=== PATIENT | male | born 1980 | race Caucasian/White ===

== ENCOUNTER 2018-07-27 19:02 | Inpatient (IN) | payer SELFPAY ==
[~2018-07-27] VITALS: Ht 190.5 cm; Wt 108.9 kg
[~2018-07-27 19:02] MED LIST: CLIN300C8 PO; HYDR-3164 PO; METO25TA4 PO
[2018-07-27] MEDS ORDERED: LABETALOL 20 MG/4 ML DISP.SYRIN. IVP ONE (19:30)
[2018-07-27] MEDS ORDERED: ASPIRIN CHEWABLE 81 MG TABLET. PO ONE (19:30)
[2018-07-27] MEDS ORDERED: FUROSEMIDE 20 MG/2 ML VIAL. IVP ONE (19:30)
--- NOTE | 2018-07-27 19:34 | PHYS DOC ---
Past Medical History Past Medical History: Hypertension, Other Additional Past Medical Histor: protein S deficiency Past Surgical History: Other Additional Past Surgical Histo: brisket removed from throat, L foot Alcohol Use: None Drug Use: None Adult General Chief Complaint Chief Complaint: ABDOMINAL PAIN HPI HPI Patient is a 38 year old male was presenting with chief complaint multiple symptoms. He's had leg swelling for the last 2 days increasing his had several weeks of dyspnea on exertion he says he feels very lightheaded as though he is going to pass out when he walks in addition he has epigastric discomfort he says that there is a heartburn component like indigestion after eating but also gets worse when he walks. Patient's history of high blood pressure but he is been off his metoprolol because he's out of insurance he has not seen his doctor for several months he does use methamphetamine occasionally he does smoke tobacco he denies alcohol. Denies any known cardiac history. he also says food gets stuck in his esophagus sometimes occasional meth use. Review of Systems Review of Systems Constitutional: Denies fever or chills [] Eyes: Denies change in visual acuity, redness, or eye pain [] HENT: Denies nasal congestion or sore throat [] Respiratory: Denies cough GI: : Denies dysuria or hematuria [] Musculoskeletal: Denies back pain or joint pain [] Integument: Denies rash or skin lesions [] All other systems were reviewed and found to be within normal limits, except as documented in this note. Current Medications Current Medications Current Medications Medications (Trade) Dose Ordered Sig/Lena Start Time Stop Time Status Last Admin Dose Admin Aspirin (Children'S Aspirin) 324 mg 1X ONCE 07/27/18 19:30 07/27/18 19:34 DC 07/27/18 20:00 324 MG Famotidine (Pepcid) 20 mg 1X ONCE 07/27/18 21:15 07/27/18 21:16 DC Furosemide (Lasix) 20 mg 1X ONCE 07/27/18 19:30 07/27/18 19:34 DC 07/27/18 19:59 20 MG Labetalol HCl (Normodyne Iv Push) 20 mg PRN Q2HRS PRN 07/27/18 21:15 Nitroglycerin (Nitro-Bid Oint) 2 inch 1X ONCE 07/27/18 21:15 07/27/18 21:16 DC Nitroglycerin (Nitrostat) 0.4 mg PRN Q5MIN PRN 07/27/18 21:15 07/28/18 21:14 Allergies Allergies Allergies Coded Allergies Type Severity Reaction Last Updated Verified No Known Drug Allergies 03/28/16 No Physical Exam Physical Exam M Constitutional: Well developed, well nourished, mild distress, non-toxic appearance. [] HENT: Normocephalic, atraumatic, bilateral external ears normal, oropharynx moist, no oral exudates, nose normal. [] Eyes: PERRLA, EOMI, conjunctiva normal, no discharge. [] Neck: Normal range of motion, no tenderness, supple, no stridor. [] Cardiovascular:Heart rate regular rhythm, 3-6 murmur noted ungs & Thorax: Decreased breath sounds bilateral lung bases Abdomen: Bowel sounds normal, soft, mild epigastric tenderness, no masses, no pulsatile masses. [] Skin: Warm, dry, no erythema, no rash. [] Back: No tenderness, no CVA tenderness. [] Extremities: No tenderness, no cyanosis, no clubbing, ROM intact, two plus edema b/l Neurologic: Alert and oriented X 3, normal motor function, normal sensory function, no focal deficits noted. [] Psychologic: Affect normal, judgement normal, mood normal. [] Current Patient Data Vital Signs Vital Signs Date Time Temp Pulse Resp B/P (MAP) Pulse Ox O2 Delivery O2 Flow Rate FiO2 07/27/18 20:00 105 232/157 07/27/18 19:23 97.8 20 98 Room Air 97.8 Lab Values Laboratory Tests Test 07/27/18 19:30 07/27/18 20:30 White Blood Count 10.0 x10^3/uL (4.0-11.0) Red Blood Count 5.08 x10^6/uL (4.30-5.70) Hemoglobin 14.5 g/dL (13.0-17.5) Hematocrit 43.9 % (39.0-53.0) Mean Corpuscular Volume 87 fL (79-100) Mean Corpuscular Hemoglobin 29 pg (25-35) Mean Corpuscular Hemoglobin Concent 33 g/dL (31-37) Red Cell Distribution Width 14.1 % (11.5-14.5) Platelet Count 266 x10^3/uL (140-400) Neutrophils (%) (Auto) 62 % (31-73) Lymphocytes (%) (Auto) 21 % (24-48) L Monocytes (%) (Auto) 11 % (0-9) H Eosinophils (%) (Auto) 5 % (0-3) H Basophils (%) (Auto) 1 % (0-3) Neutrophils # (Auto) 6.2 x10^3uL (1.8-7.7) Lymphocytes # (Auto) 2.1 x10^3/uL (1.0-4.8) Monocytes # (Auto) 1.1 x10^3/uL (0.0-1.1) Eosinophils # (Auto) 0.5 x10^3/uL (0.0-0.7) Basophils # (Auto) 0.1 x10^3/uL (0.0-0.2) Sodium Level 141 mmol/L (136-145) Potassium Level 4.3 mmol/L (3.5-5.1) Chloride Level 104 mmol/L (98-107) Carbon Dioxide Level 32 mmol/L (21-32) Anion Gap 5 (6-14) L Blood Urea Nitrogen 21 mg/dL (8-26) Creatinine 1.7 mg/dL (0.7-1.3) H Estimated GFR (Cockcroft-Gault) 45.3 BUN/Creatinine Ratio 12 (6-20) Glucose Level 156 mg/dL (70-99) H Calcium Level 8.7 mg/dL (8.5-10.1) Total Bilirubin 0.6 mg/dL (0.2-1.0) Aspartate Amino Transferase (AST) 31 U/L (15-37) Alanine Aminotransferase (ALT) 40 U/L (16-63) Alkaline Phosphatase 126 U/L (46-116) H Troponin I Quantitative 0.142 ng/mL (0.000-0.055) QM-Deh-Z-Type Natriuretic Peptide 5290 pg/mL (0-124) H Total Protein 6.7 g/dL (6.4-8.2) Albumin 3.0 g/dL (3.4-5.0) L Albumin/Globulin Ratio 0.8 (1.0-1.7) L Lipase 138 U/L (73-393) Prothrombin Time 15.5 SEC (11.7-14.0) H Prothrombin Time INR 1.3 (0.8-1.1) H Laboratory Tests 07/27/18 19:30 Laboratory Tests 07/27/18 19:30 EKG EKG []EKG is poor quality apparently the nurses tried for 10 minutes overall I C sinus tachycardia there is some borderline ST elevation in aVL but is overall difficult to interpret due to poor baseline. Lead 1 I do not see ST elevation there is borderline ST depression in 23 and aVF intervals are normal interpreted by me the time of encounter. Radiology/Procedures Radiology/Procedures []Chest x-ray shows possible mild pulmonary vascular congestion interpreted by me the time of encounter pneumothorax query mild cardiomegaly bones look normal Course & Med Decision Making Course & Med Decision Making Pertinent Labs and Imaging studies reviewed. (See chart for details) []38-year-old male with history of hypertension which is not treated comes in with blood pressure 227/159 history of methamphetamine use likely hypertensive urgency is dyspnea on exertion as well as lower extremity edema plan for x-ray labs Lasix labetalol patient will likely R admission for echocardiogram and further observation and treatment. Patient received labetalol in the emergency room which improved his blood pressure down to 160/120 is feeling better. Noted the bump in troponin as well as the elevated BNP I suspect this hypertensive urgency possible fluid overload mild renal insufficiency also noted patient was given Lasix in the emergency room I also ordered Nitrol paste as well as spoke with Dr. Rubio plan to admit for hypertensive urgency routine cardiology consultation was placed for inpatient Dragon Disclaimer Dragon Disclaimer This electronic medical record was generated, in whole or in part, using a voice recognition dictation system. Departure Departure Impression: Primary Impression: Hypertensive urgency Disposition: ADMITTED INPATIENT Admitting Physician: Karuna Parker Condition: STABLE Referrals: NO PCP (PCP) LANDRY OCHOA MD Jul 27, 2018 19:34
[2018-07-27 19:48] LABS: BASO # 0.1 x10^3/uL (0.0-0.2); BASO % 1 % (0-3); EOS # 0.5 x10^3/uL (0.0-0.7); EOS % 5 % (0-3); HEMATOCRIT 43.9 % (39.0-53.0); HEMOGLOBIN 14.5 g/dL (13.0-17.5); LYMPH # 2.1 x10^3/uL (1.0-4.8); LYMPH % 21 % (24-48); MEAN CORPUSCULAR HEMOGLOBIN 29 pg (25-35); MEAN CORPUSCULAR HGB CONC 33 g/dL (31-37); MEAN CORPUSCULAR VOLUME 87 fL (79-100); MONO # 1.1 x10^3/uL (0.0-1.1); MONO % 11 % (0-9); NEUT # 6.2 x10^3uL (1.8-7.7); NEUT % 62 % (31-73); PLATELET COUNT 266 x10^3/uL (140-400); RED BLOOD COUNT 5.08 x10^6/uL (4.30-5.70); RED CELL DISTRIBUTION WIDTH 14.1 % (11.5-14.5)
[2018-07-27 20:01] LABS: CALCIUM 8.7 mg/dL (8.5-10.1); CREATININE 1.7 mg/dL (0.7-1.3); GFR 45.3; POTASSIUM 4.3 mmol/L (3.5-5.1)
[2018-07-27 20:06] LABS: ALBUMIN/GLOBULIN RATIO 0.8 (1.0-1.7); TOTAL BILIRUBIN 0.6 mg/dL (0.2-1.0); TOTAL PROTEIN 6.7 g/dL (6.4-8.2)
[2018-07-27 20:52] LABS: PROTHROMBIN TIME PATIENT 15.5 SEC (11.7-14.0)
[2018-07-27] MEDS ORDERED: FAMOTIDINE 20 MG TABLET. PO ONE (21:15)
[2018-07-27] MEDS ORDERED: NITROGLYCERIN OINT 1 GM PACKET. TP ONE (21:15)
[2018-07-27] MEDS ORDERED: NITROGLYCERIN SUBLINGUAL 0.4 MG BOTTLE OF 25. SL PRN (21:15)
[2018-07-27] MEDS ORDERED: LABETALOL 20 MG/4 ML DISP.SYRIN. IVP PRN (21:15)
[2018-07-27 23:36] VITALS: BP 179/108
[2018-07-28] VITALS (11 sets, daily range): BP systolic 153–186; BP diastolic 101–127
--- NOTE | 2018-07-28 02:13 | RAD ---
AP portable chest radiograph 07/27/2018 Clinical History: Shortness of breath. Lower extremity swelling. Hypertension. Asthma.. An AP erect portable digital radiograph of the chest was obtained. Comparison study is dated 03/28/2016. The cardiac silhouette is borderline enlarged. The thoracic aorta is minimally tortuous. No acute pulmonary infiltrate is seen. A small calcified granuloma is seen involving the right upper lobe. No pneumothorax or pleural effusion is noted. The osseous structures are grossly intact. Impression: No acute abnormality is seen. Electronically signed by: Nabeel Duffy MD (07/28/2018 2:09 AM) [facility]
[2018-07-28] MEDS: ACETAMINOPHEN 325 MG TABLET. PO PRN ×2 (06:42→23:13)
[2018-07-28] MEDS ORDERED: METO50TA6 PO (06:56)
--- NOTE | 2018-07-28 07:12 | EKG ---
[facility] [address] [place] [address] Test Date: 2018-07-27 Test Time: 19:19:36 Pat Name: FELICIA MARTINEZ Department: Room: 250 1 Gender: M General Internist: : [id number] Requested By: LANDRY OCHOA Order Number: [id number] Reading MD: Darrion Muhammad Measurements Intervals [place] Rate: 110 P: 114 OK: 154 QRS: 142 QRSD: 86 T: 152 QT: 338 QTc: 463 Interpretive Statements SINUS TACHYCARDIA LEFT ATRIAL ABNORMALITY ABNORMAL RIGHT AXIS DEVIATION ST & T ABNORMALITY, CONSIDER HIGH LATERAL ISCHEMIA OR LEFT VENTRICULAR STRAIN INFERIOR ISCHEMIA OR LEFT VENTRICULAR STRAIN ABNORMAL ECG No previous ECG available for comparison Electronically Signed On 07-31-2018 8:42:33 SPRING INSPECTOR by Darrion Muhammad
--- NOTE | 2018-07-28 08:16 | EKG ---
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
[2018-07-28] MEDS: amLODIPine BESYLATE 10 MG TABLET PO SCH (08:52)
--- NOTE | 2018-07-28 09:19 | CARD ---
MR#: [id number] Date of Study: 07/28/2018 Ordering Physician: REAGAN JOYNER, Referring Physician: MARIIA JACINTO Tech: Maritza Vegas RDCS APPROVED REPORT EXAM: Two-dimensional and M-mode echocardiogram with Doppler and color Doppler. Other Information Quality : GoodHR: 85bpm Rhythm : NSR INDICATION Hypertension/HCVD 2D DIMENSIONS RVDd3.8 (2.9-3.5cm)Left Atrium(2D)4.2 (1.6-4.0cm) IVSd1.3 (0.7-1.1cm)Aortic Root(2D)3.5 (2.0-3.7cm) LVDd5.0 (3.9-5.9cm)LVOT Diameter2.2 (1.8-2.4cm) PWd1.4 (0.7-1.1cm)LVDs4.6 (2.5-4.0cm) FS (%) 8.8 %SV23.2 ml LVEF(%)19.3 (>50%) M-Mode DIMENSIONS Left Atrium(MM)4.65 (2.5-4.0cm)Aortic Root3.51 (2.2-3.7cm) Aortic Valve AoV Peak Tang.90.5cm/sAoV VTI13.0cm AO Peak GR.3.3mmHgLVOT Peak Tang.66.1cm/s AO Mean GR.2mmHgAVA (VMAX)2.87cm2 GIANNA (VTI)3.00cm2 Mitral Valve MV E Ektdrgau60.6cm/sMV DECEL [id number] MV A Aruvvsxd64.6cm/sE/A Ratio1.3 MV A [id number] Pulmonary Valve PV Peak Kwmkfkgv24.4cm/s Tricuspid Valve TR P. Gaqwwale192um/sRAP [id number] TR Peak Gr.31taJrNFYQ07pcLd LEFT VENTRICLE The left ventricle is normal size. There is mild concentric left ventricular hypertrophy. The left ve ntricular systolic function is severely impaired. The Ejection Fraction is 20%. There is severe globa l hypokinesis of the left ventricle. Transmitral Doppler flow pattern is Grade II-pseudonormal fillin g dynamics. RIGHT VENTRICLE The right ventricle is mildly dilated. There is normal right ventricular wall thickness. Systolic fun ction is moderately reduced. ATRIA The left atrium size is normal. The right atrium is mildly dilated. The interatrial septum is intact with no evidence for an atrial septal defect or patent foramen ovale as noted on 2-D or Doppler imagi ng. AORTIC VALVE The aortic valve is normal in structure and function. The aortic valve is trileaflet. Doppler and Col or Flow revealed no significant aortic regurgitation. There is no significant aortic valvular stenosi s. MITRAL VALVE The mitral valve is normal in structure and function. There is no evidence of mitral valve prolapse. There is no mitral valve stenosis. Doppler and Color-flow revealed mild mitral regurgitation. TRICUSPID VALVE The tricuspid valve is normal in structure and function. Doppler and Color Flow revealed moderate tri cuspid regurgitation. There is severe pulmonary hypertension. The PA pressure was estimated at 70 mmH g. There is no tricuspid valve prolapse or vegetation. There is no tricuspid valve stenosis. PULMONIC VALVE The pulmonary valve is normal in structure and function. Doppler and Color Flow revealed trace pulmon ic valvular regurgitation. There is no pulmonic valvular stenosis. GREAT VESSELS The aortic root is normal in size. The ascending aorta is normal in size. The IVC is dilated and farzad apses <50% with inspiration. PERICARDIAL EFFUSION There is no evidence of significant pericardial effusion. Critical Notification Critical Value: No <Conclusion> The left ventricular systolic function is severely impaired. The Ejection Fraction is 20%. Mild mitral regurgitation. Moderate tricuspid regurgitation. There is severe pulmonary hypertension. The PA pressure was estimated at 70 mmHg. There is no evidence of significant pericardial effusion. Signed by : Darrion Muhammad, Electronically Approved : 07/28/2018 09:18:22
--- NOTE | 2018-07-28 10:06 | PDOC1 ---
History and Physical Date of Admission Date of Admission DATE: 07/28/18 TIME: 10:05 Identification/Chief Complaint Chief Complaint severe htn Leg swelling for the last 2 days increasing dyspnea on exertion he says he feels very lightheaded as though he is going to pass out when he walks epigastric discomfort heartburn component like indigestion after eating but also gets worse when he walks. Patient's history of high blood pressure but he is been off his metoprolol DUE TO COST Past Medical History Past Medical History Past Medical History: Hypertension, Other Additional Past Medical Histor: protein S deficiency Past Surgical History: Other Additional Past Surgical Histo: brisket removed from throat, L foot Alcohol Use: None Drug Use: None family hx htn Cardiovascular: HTN Pulmonary: COPD GI: No pertinent hx Dermatology: No pertinent hx Family History Family History Past Medical History: Hypertension, NICM protein S deficiency Past Surgical History: Other Additional Past Surgical Histo: brisket removed from throat, L foot Alcohol Use: None Drug Use: METH Family History: Alcohol Abuse, Hypertension Social History Smoke: <1 pack per day ALCOHOL: occassional Drugs: Cocaine, Crystal meth Current Problem List Problem List Problems Medical Problems: (1) Hypertensive urgency Status: Acute Current Medications Current Medications Current Medications Furosemide (Lasix) 20 mg 1X ONCE IVP Last administered on 07/27/18at 19:59; Start 07/27/18 at 19:30; Stop 07/27/18 at 19:34; Status DC Labetalol HCl (Normodyne Iv Push) 20 mg 1X ONCE IVP Last administered on 07/27at 20:00; Start 07/27/18 at 19:30; Stop 07/27/18 at 19:34; Status DC Aspirin (Children'S Aspirin) 324 mg 1X ONCE PO Last administered on at 20:00; Start 07/27/18 at 19:30; Stop 07/27/18 at 19:34; Status DC Nitroglycerin (Nitrostat) 0.4 mg PRN Q5MIN PRN SL CHEST PAIN; Start 07/27/18 at 21:15; Stop 07/28/18 at 21:14 Labetalol HCl (Normodyne Iv Push) 20 mg PRN Q2HRS PRN IVP HYPERTENSION, SEE COMMENTS Last administered on 07/28/18at 03:18; Start 07/27/18 at 21:15 Nitroglycerin (Nitro-Bid Oint) 2 inch 1X ONCE TP Last administered on at 21:31; Start 07/27/18 at 21:15; Stop 07/27/18 at 21:16; Status DC Famotidine (Pepcid) 20 mg 1X ONCE PO Last administered on 07/27/18at 21:30; Start 07/27/18 at 21:15; Stop 07/27/18 at 21:16; Status DC Acetaminophen (Tylenol) 650 mg PRN Q6HRS PRN PO HEADACHE Last administered on 07/28/18at 06:42; Start 07/28/18 at 06:15 Nitroglycerin (Nitro-Bid Oint) 1 inch Q6HRS TP ; Start 07/28/18 at 12:00 Amlodipine Besylate (Norvasc) 10 mg DAILY PO Last administered on 07/28/18at 08 :52; Start 07/28/18 at 09:00 Hydralazine HCl (Apresoline) 50 mg TID PO ; Start 07/28/18 at 14:00 Active Scripts Active Reported Metoprolol Tartrate 50 Mg Tablet 50 Mg PO TID Allergies Allergies: Coded Allergies: No Known Drug Allergies (Unverified , 03/28/16) ROS Review of System Review of Systems Review of Systems Constitutional: Denies fever or chills [] Eyes: Denies change in visual acuity, redness, or eye pain [] HENT: Denies nasal congestion or sore throat [] Respiratory: Denies cough : Denies dysuria or hematuria [] Musculoskeletal: Denies back pain or joint pain [] Integument: Denies rash or skin lesions [] 14 PT systems were reviewed and found to be within normal limits, except as documented. General: YES: Fatigue PSYCHOLOGICAL ROS: No: Anxiety, Behavioral Disorder, Concentration difficultie , Decreased libido, Depression, Disorientation, Hallucinations, Hostility, Irritablity, Memory difficulties, Mood Swings, Obsessive thoughts, Physical abuse, Sexual abuse, Sleep disturbances, Suicidal ideation, Other Eyes: No Blurry vision, No Decreased vision, No Double vision, No Dry eyes, No Excessive tearing, No Eye Pain, No Itchy Eyes, No Loss of vision, No Photophobia , No Scotomata, No Uses contacts, No Uses glasses, No Other ALLERGY AND IMMUNOLOGY: No: Hives, Insect Bite Sensitivity, Itchy/Watery Eyes, Nasal Congestion, Post Nasal Drip, Seasonal Allergies, Other ENDOCRINE: No: Breast Changes, Galactorrhea, Hair Pattern Changes, Hot Flashes , Malaise/lethargy, Mood Swings, Palpitations, Polydipsia/polyuria, Skin Changes , Temperature Intolerance, Unexpected Weight Changes, Other Gastrointestinal: No Nausea, No Vomiting, No Abdominal Pain, No Diarrhea, No Constipation, No Melena, No Hematochezia, No Other Skin: No Dry Skin, No Eczema, No Hair Changes, No Lumps, No Mole Changes, No Mottling, No Nail Changes, No Pruritus, No Rash, No Skin Lesion Changes, No Other, No Acne Physical Exam Physical Exam Physical Exam Physical Exam M Constitutional: Well developed, well nourished, mild distress, non-toxic appearance. [] HENT: Normocephalic, atraumatic, bilateral external ears normal, oropharynx moist, no oral exudates, nose normal. [] Eyes: PERRLA, EOMI, conjunctiva normal, no discharge. [] Neck: Normal range of motion, no tenderness, supple, no stridor. [] Cardiovascular:Heart rate regular rhythm, 3-6 murmur noted ungs & Thorax: Decreased breath sounds bilateral lung bases Abdomen: Bowel sounds normal, soft, mild epigastric tenderness, no masses, no pulsatile masses. [] Skin: Warm, dry, no erythema, no rash. [] Back: No tenderness, no CVA tenderness. [] Extremities: No tenderness, no cyanosis, no clubbing, ROM intact, two plus edema b/l Neurologic: Alert and oriented X 3, normal motor function, normal sensory function, no focal deficits noted. [] Psychologic: Affect normal, judgement normal, mood normal. [] General: Alert, Oriented X3, Cooperative, No acute distress HEENT: PERRLA, EOMI Lungs: Clear to auscultation, Normal air movement Breasts: Not examined Abdomen: Normal bowel sounds Rectal Exam: not examined Extremities: No cyanosis, Other (1 PLYUS) Neuro: Normal speech, Cranial nerves 3-12 NL Vitals Vitals Vital Signs Date Time Temp Pulse Resp B/P (MAP) Pulse Ox O2 Delivery O2 Flow Rate FiO2 07/28/18 08:54 86 167/127 (140) 07/28/18 08:00 Room Air 07/28/18 07:00 97.8 16 95 97.8 Labs Labs Laboratory Tests Test 07/27/18 19:30 07/27/18 20:30 07/28/18 00:45 07/28/18 03:45 White Blood Count 10.0 x10^3/uL (4.0-11.0) Red Blood Count 5.08 x10^6/uL (4.30-5.70) Hemoglobin 14.5 g/dL (13.0-17.5) Hematocrit 43.9 % (39.0-53.0) Mean Corpuscular Volume 87 fL (79-100) Mean Corpuscular Hemoglobin 29 pg (25-35) Mean Corpuscular Hemoglobin Concent 33 g/dL (31-37) Red Cell Distribution Width 14.1 % (11.5-14.5) Platelet Count 266 x10^3/uL (140-400) Neutrophils (%) (Auto) 62 % (31-73) Lymphocytes (%) (Auto) 21 % (24-48) Monocytes (%) (Auto) 11 % (0-9) Eosinophils (%) (Auto) 5 % (0-3) Basophils (%) (Auto) 1 % (0-3) Neutrophils # (Auto) 6.2 x10^3uL (1.8-7.7) Lymphocytes # (Auto) 2.1 x10^3/uL (1.0-4.8) Monocytes # (Auto) 1.1 x10^3/uL (0.0-1.1) Eosinophils # (Auto) 0.5 x10^3/uL (0.0-0.7) Basophils # (Auto) 0.1 x10^3/uL (0.0-0.2) Sodium Level 141 mmol/L (136-145) Potassium Level 4.3 mmol/L (3.5-5.1) Chloride Level 104 mmol/L (98-107) Carbon Dioxide Level 32 mmol/L (21-32) Anion Gap 5 (6-14) Blood Urea Nitrogen 21 mg/dL (8-26) Creatinine 1.7 mg/dL (0.7-1.3) Estimated GFR (Cockcroft-Gault) 45.3 BUN/Creatinine Ratio 12 (6-20) Glucose Level 156 mg/dL (70-99) Calcium Level 8.7 mg/dL (8.5-10.1) Total Bilirubin 0.6 mg/dL (0.2-1.0) Aspartate Amino Transf (AST/SGOT) 31 U/L (15-37) Alanine Aminotransferase (ALT/SGPT) 40 U/L (16-63) Alkaline Phosphatase 126 U/L (46-116) Troponin I Quantitative 0.142 ng/mL (0.000-0.055) 0.125 ng/mL (0.000-0.055) 0.129 ng/mL (0.000-0.055) DY-Cwz-B-Type Natriuretic Peptide 5290 pg/mL (0-124) Total Protein 6.7 g/dL (6.4-8.2) Albumin 3.0 g/dL (3.4-5.0) Albumin/Globulin Ratio 0.8 (1.0-1.7) Lipase 138 U/L (73-393) Prothrombin Time 15.5 SEC (11.7-14.0) Prothromb Time International Ratio 1.3 (0.8-1.1) Laboratory Tests Test 07/27/18 19:30 07/27/18 20:30 07/28/18 00:45 07/28/18 03:45 White Blood Count 10.0 x10^3/uL (4.0-11.0) Red Blood Count 5.08 x10^6/uL (4.30-5.70) Hemoglobin 14.5 g/dL (13.0-17.5) Hematocrit 43.9 % (39.0-53.0) Mean Corpuscular Volume 87 fL (79-100) Mean Corpuscular Hemoglobin 29 pg (25-35) Mean Corpuscular Hemoglobin Concent 33 g/dL (31-37) Red Cell Distribution Width 14.1 % (11.5-14.5) Platelet Count 266 x10^3/uL (140-400) Neutrophils (%) (Auto) 62 % (31-73) Lymphocytes (%) (Auto) 21 % (24-48) Monocytes (%) (Auto) 11 % (0-9) Eosinophils (%) (Auto) 5 % (0-3) Basophils (%) (Auto) 1 % (0-3) Neutrophils # (Auto) 6.2 x10^3uL (1.8-7.7) Lymphocytes # (Auto) 2.1 x10^3/uL (1.0-4.8) Monocytes # (Auto) 1.1 x10^3/uL (0.0-1.1) Eosinophils # (Auto) 0.5 x10^3/uL (0.0-0.7) Basophils # (Auto) 0.1 x10^3/uL (0.0-0.2) Sodium Level 141 mmol/L (136-145) Potassium Level 4.3 mmol/L (3.5-5.1) Chloride Level 104 mmol/L (98-107) Carbon Dioxide Level 32 mmol/L (21-32) Anion Gap 5 (6-14) Blood Urea Nitrogen 21 mg/dL (8-26) Creatinine 1.7 mg/dL (0.7-1.3) Estimated GFR (Cockcroft-Gault) 45.3 BUN/Creatinine Ratio 12 (6-20) Glucose Level 156 mg/dL (70-99) Calcium Level 8.7 mg/dL (8.5-10.1) Total Bilirubin 0.6 mg/dL (0.2-1.0) Aspartate Amino Transf (AST/SGOT) 31 U/L (15-37) Alanine Aminotransferase (ALT/SGPT) 40 U/L (16-63) Alkaline Phosphatase 126 U/L (46-116) Troponin I Quantitative 0.142 ng/mL (0.000-0.055) 0.125 ng/mL (0.000-0.055) 0.129 ng/mL (0.000-0.055) GE-Znk-A-Type Natriuretic Peptide 5290 pg/mL (0-124) Total Protein 6.7 g/dL (6.4-8.2) Albumin 3.0 g/dL (3.4-5.0) Albumin/Globulin Ratio 0.8 (1.0-1.7) Lipase 138 U/L (73-393) Prothrombin Time 15.5 SEC (11.7-14.0) Prothromb Time International Ratio 1.3 (0.8-1.1) Images Images LEFT VENTRICLE The left ventricle is normal size. There is mild concentric left ventricular hypertrophy. The left ventricular systolic function is severely impaired. The Ejection Fraction is 20%. There is severe global hypokinesis of the left ventricle. Transmitral Doppler flow pattern is Grade II-pseudonormal filling dynamics. RIGHT VENTRICLE The right ventricle is mildly dilated. There is normal right ventricular wall thickness. Systolic function is moderately reduced. ATRIA The left atrium size is normal. The right atrium is mildly dilated. The interatrial septum is intact with no evidence for an atrial septal defect or patent foramen ovale as noted on 2-D or Doppler imaging. AORTIC VALVE The aortic valve is normal in structure and function. The aortic valve is trileaflet. Doppler and Color Flow revealed no significant aortic regurgitation. There is no significant aortic valvular stenosis. MITRAL VALVE The mitral valve is normal in structure and function. There is no evidence of mitral valve prolapse. There is no mitral valve stenosis. Doppler and Color- flow revealed mild mitral regurgitation. TRICUSPID VALVE The tricuspid valve is normal in structure and function. Doppler and Color Flow revealed moderate tricuspid regurgitation. There is severe pulmonary hypertension. The PA pressure was estimated at 70 mmHg. There is no tricuspid valve prolapse or vegetation. There is no tricuspid valve stenosis. PULMONIC VALVE The pulmonary valve is normal in structure and function. Doppler and Color Flow revealed trace pulmonic valvular regurgitation. There is no pulmonic valvular stenosis. GREAT VESSELS The aortic root is normal in size. The ascending aorta is normal in size. The IVC is dilated and collapses <50% with inspiration. PERICARDIAL EFFUSION There is no evidence of significant pericardial effusion. Critical Notification Critical Value: No <Conclusion> The left ventricular systolic function is severely impaired. The Ejection Fraction is 20%. Mild mitral regurgitation. Moderate tricuspid regurgitation. There is severe pulmonary hypertension. The PA pressure was estimated at 70 mmHg. There is no evidence of significant pericardial effusion. VTE Prophylaxis Ordered VTE Prophylaxis Devices: Yes VTE Pharmacological Prophylaxi: Yes Assessment/Plan Assessment/Plan ASSESSMENT 1. Malignant HTN 2. Cardiomyopathy: NICM 3. CKD: 4. chronic systolic/diastolic CHF: 5. Substance abuse: , meth use 6. Elevated troponin: DEMAND 7. Hx of Protein S deficiency 8. Severe pulmonary hypertension The PA pressure was estimated at 70 mmHg. 9. Tobacco abuse 10. Noncompliance plan 1. Amlodipine. lisinopril and IV lasix. 2. Lipid panel . statin per level. ASA. 3. Smoking cessation, 4. substance abuse cessation 5. Na restriction and daily wt. 6. Leg swelling , venous doppler and rule out DVT. 7. Dietitian 8. DVT PROPHYLAXIS YOU MYERS MD Jul 28, 2018 10:06
--- NOTE | 2018-07-28 10:14 | PDOC2 ---
CARDIAC CONSULT DATE OF CONSULT Date of Consult DATE: 07/28/18 TIME: 10:00 REASON FOR CONSULT Reason for Consult: hypertensive urgency REFERRING PHYSICIAN Referring Physician: Lanette SOURCE Source: Chart review, Patient HISTORY OF PRESENT ILLNESS HISTORY OF PRESENT ILLNESS This is a pleasant 38 yo male admitted for complains of SOA and leg swelling. Reports that he does not take any medications. Reports of orthopnea in the last week at least, LEROY but no palpitations or chest pain. He smokes tobacco and uses meth at least 2x a week for energy. Denies any heart disease, VTE but does have hx of Protein S deficiency. PAST MEDICAL HISTORY Cardiovascular: HTN PAST SURGICAL HISTORY Past Surgical History: Other (left foot surgery) FAMILY HISTORY Family History: Heart Disease (father) SOCIAL HISTORY Smoke: 1 pack per day ALCOHOL: none Drugs: Crystal meth Lives: Alone CURRENT MEDICATIONS CURRENT MEDICATIONS Current Medications Medications (Trade) Dose Ordered Sig/Lena Route PRN Reason Start Time Stop Time Status Last Admin Dose Admin Furosemide (Lasix) 20 mg 1X ONCE IVP 07/27/18 19:30 07/27/18 19:34 DC 07/27/18 19:59 Labetalol HCl (Normodyne Iv Push) 20 mg 1X ONCE IVP 07/27/18 19:30 07/27/18 19:34 DC 07/27/18 20:00 Aspirin (Children'S Aspirin) 324 mg 1X ONCE PO 07/27/18 19:30 07/27/18 19:34 DC 07/27/18 20:00 Labetalol HCl (Normodyne Iv Push) 20 mg PRN Q2HRS PRN IVP HYPERTENSION, SEE COMMENTS 07/27/18 21:15 07/28/18 03:18 Nitroglycerin (Nitro-Bid Oint) 2 inch 1X ONCE TP 07/27/18 21:15 07/27/18 21:16 DC 07/27/18 21:31 Famotidine (Pepcid) 20 mg 1X ONCE PO 07/27/18 21:15 07/27/18 21:16 DC 07/27/18 21:30 Acetaminophen (Tylenol) 650 mg PRN Q6HRS PRN PO HEADACHE 07/28/18 06:15 07/28/18 06:42 Amlodipine Besylate (Norvasc) 10 mg DAILY PO 07/28/18 09:00 07/28/18 08:52 ALLERGIES ALLERGIES: Coded Allergies: No Known Drug Allergies (Unverified , 03/28/16) ROS Review of System 14 point ROS evaluated with pertinent positives noted per HPI PHYSICAL EXAM General: Alert, Oriented X3, Cooperative, No acute distress HEENT: Atraumatic, Mucous membr. moist/pink Lungs: Clear to auscultation, Normal air movement Heart: Regular rate (SR), Other (3/6 systolic murmur to LLS border) Abdomen: Soft, No tenderness Extremities: No cyanosis, Other (3+ bilateral LE pitting edema) Skin: No breakdown, No significant lesion Neuro: Normal speech, Sensation intact Psych/Mental Status: Mental status NL, Mood NL MUSCULOSKELETAL: Full range of motion without pain VITALS VITALS Vital Signs Date Time Temp Pulse Resp B/P (MAP) Pulse Ox O2 Delivery O2 Flow Rate FiO2 07/28/18 08:54 86 167/127 (140) 07/28/18 08:00 Room Air 07/28/18 07:00 97.8 16 95 97.8 LABS Lab: Laboratory Tests Test 07/27/18 19:30 07/27/18 20:30 07/28/18 00:45 07/28/18 03:45 White Blood Count 10.0 x10^3/uL (4.0-11.0) Red Blood Count 5.08 x10^6/uL (4.30-5.70) Hemoglobin 14.5 g/dL (13.0-17.5) Hematocrit 43.9 % (39.0-53.0) Mean Corpuscular Volume 87 fL (79-100) Mean Corpuscular Hemoglobin 29 pg (25-35) Mean Corpuscular Hemoglobin Concent 33 g/dL (31-37) Red Cell Distribution Width 14.1 % (11.5-14.5) Platelet Count 266 x10^3/uL (140-400) Neutrophils (%) (Auto) 62 % (31-73) Lymphocytes (%) (Auto) 21 % (24-48) Monocytes (%) (Auto) 11 % (0-9) Eosinophils (%) (Auto) 5 % (0-3) Basophils (%) (Auto) 1 % (0-3) Neutrophils # (Auto) 6.2 x10^3uL (1.8-7.7) Lymphocytes # (Auto) 2.1 x10^3/uL (1.0-4.8) Monocytes # (Auto) 1.1 x10^3/uL (0.0-1.1) Eosinophils # (Auto) 0.5 x10^3/uL (0.0-0.7) Basophils # (Auto) 0.1 x10^3/uL (0.0-0.2) Sodium Level 141 mmol/L (136-145) Potassium Level 4.3 mmol/L (3.5-5.1) Chloride Level 104 mmol/L (98-107) Carbon Dioxide Level 32 mmol/L (21-32) Anion Gap 5 (6-14) Blood Urea Nitrogen 21 mg/dL (8-26) Creatinine 1.7 mg/dL (0.7-1.3) Estimated GFR (Cockcroft-Gault) 45.3 BUN/Creatinine Ratio 12 (6-20) Glucose Level 156 mg/dL (70-99) Calcium Level 8.7 mg/dL (8.5-10.1) Total Bilirubin 0.6 mg/dL (0.2-1.0) Aspartate Amino Transf (AST/SGOT) 31 U/L (15-37) Alanine Aminotransferase (ALT/SGPT) 40 U/L (16-63) Alkaline Phosphatase 126 U/L (46-116) Troponin I Quantitative 0.142 ng/mL (0.000-0.055) 0.125 ng/mL (0.000-0.055) 0.129 ng/mL (0.000-0.055) PS-Sfe-N-Type Natriuretic Peptide 5290 pg/mL (0-124) Total Protein 6.7 g/dL (6.4-8.2) Albumin 3.0 g/dL (3.4-5.0) Albumin/Globulin Ratio 0.8 (1.0-1.7) Lipase 138 U/L (73-393) Prothrombin Time 15.5 SEC (11.7-14.0) Prothromb Time International Ratio 1.3 (0.8-1.1) ECHOCARDIOGRAM ECHOCARDIOGRAM <Conclusion> The left ventricular systolic function is severely impaired. The Ejection Fraction is 20%. Mild mitral regurgitation. Moderate tricuspid regurgitation. There is severe pulmonary hypertension. The PA pressure was estimated at 70 mmHg. There is no evidence of significant pericardial effusion. DATE: 07/28/18 0918 ASSESSMENT/PLAN ASSESSMENT/PLAN 1. Malignant HTN: noted with HTN in 2016 per records 2. Cardiomyopathy: likely NICM with chronic uncontrolled HTN and substance abuse 3. Suspect CKD: Cr at 1.7 from HTN. 4. Suspect chronic systolic/diastolic CHF: compensated 5. Substance abuse: admits meth use 6. Elevated troponin: suspect demand mediated, type 2 due to multiple culprits above. EKG SR without acute changes by comparison. CP free. 7. Hx of Protein S deficiency 8. Severe pulmonary HTN 9. Tobaccoism 10. Noncompliance Recommendations 1. Amlodipine. Last use 3 days ago and verbalized he will quit. Start on coreg and note response. Start on lisinopril and lasix. Check BMP/Mg 2. Lipid panel and will start statin per level. ASA. 3. Smoking cessation, substance abuse cessation 4. Discussed compliance and pathophysiology of CM and CHF. Will optimize meds and discuss to follow up and plan for outpt stress test. 5. Discussed FR, home BP monitoring, Na restriction and daily wt. 6. Leg swelling likely from CHF but given his hx of protein S deficiency will proceed with venous doppler and rule out DVT. 7. CM for outpt PCP referrral, may qualify for disability. Dietitian consult REAGAN JOYNER APRN Jul 28, 2018 10:14
[2018-07-28] MEDS ORDERED: ASPIRIN ENTERIC COATED 325 MG TABLET.DR. PO ONE (10:15)
[2018-07-28] MEDS ORDERED: FUROSEMIDE 40 MG/4 ML VIAL. IVP ONE (10:30)
[2018-07-28 11:02] LABS: CALCIUM 8.3 mg/dL (8.5-10.1); CREATININE 1.5 mg/dL (0.7-1.3); GFR 52.4; MAGNESIUM 1.9 mg/dL (1.8-2.4); POTASSIUM 3.5 mmol/L (3.5-5.1)
[2018-07-28 11:11] LABS: BILIRUBIN,URINE NEGATIVE (NEG); CLARITY,URINE CLEAR; COLOR,URINE YELLOW; NITRITE,URINE NEGATIVE (NEG); PH,URINE 5.5; PROTEIN,URINE 30 mg/dL (NEG-TRACE); UROBILINOGEN,URINE 0.2 mg/dL (0.2 mg/dL)
[2018-07-28 11:20] LABS: BARBITURATES NEG (NEG); BENZODIAZEPINES NEG (NEG); CANNABINOIDS NEG (NEG); COCAINE NEG (NEG); METHADONE NEG (NEG); OPIATES NEG (NEG); PHENCYCLIDINE NEG (NEG)
[2018-07-28 11:26] LABS: BACTERIA,URINE FEW /HPF (0-FEW); HYALINE CASTS, URINE FEW /HPF; SQUAMOUS EPITHELIAL CELL,UR FEW /LPF
[2018-07-28 11:27] LABS: AMPHETAMINE/METHAMPHETAMINE POS (NEG); RBC,URINE OCC /HPF (0-2)
[2018-07-28] MEDS: CARVEDILOL 6.25 MG TABLET. PO SCH ×2 (11:58→17:20)
[2018-07-28] MEDS: NITROGLYCERIN OINT 1 GM PACKET. TP SCH ×3 (11:58→23:20)
[2018-07-28] MEDS: ENOXAPARIN 40 MG/0.4 ML SYRINGE. SQ SCH (14:42)
[2018-07-28] MEDS ORDERED: CARVEDILOL 6.25 MG TABLET. PO SCH (17:00)
[2018-07-28 20:12] LABS: HEMOGLOBIN A1C 6.5 % (4.8-5.6)
[2018-07-28] MEDS: ATORVASTATIN CALCIUM 10 MG TABLET. PO SCH (20:58)
[2018-07-28] MEDS: LISINOPRIL 20 MG TABLET PO SCH (21:30)
[2018-07-28] MEDS: LABETALOL 20 MG/4 ML DISP.SYRIN. IVP PRN (23:14)
[2018-07-29 03:30] VITALS: BP 146/87
[2018-07-29 05:39] LABS: BASO # 0.1 x10^3/uL (0.0-0.2); BASO % 1 % (0-3); EOS # 0.5 x10^3/uL (0.0-0.7); EOS % 5 % (0-3); HEMATOCRIT 41.1 % (39.0-53.0); HEMOGLOBIN 13.6 g/dL (13.0-17.5); LYMPH # 2.3 x10^3/uL (1.0-4.8); LYMPH % 21 % (24-48); MEAN CORPUSCULAR HEMOGLOBIN 28 pg (25-35); MEAN CORPUSCULAR HGB CONC 33 g/dL (31-37); MEAN CORPUSCULAR VOLUME 86 fL (79-100); MONO # 1.3 x10^3/uL (0.0-1.1); MONO % 12 % (0-9); NEUT # 6.6 x10^3uL (1.8-7.7); NEUT % 61 % (31-73); PLATELET COUNT 259 x10^3/uL (140-400); RED BLOOD COUNT 4.81 x10^6/uL (4.30-5.70); RED CELL DISTRIBUTION WIDTH 13.7 % (11.5-14.5); WHITE BLOOD COUNT 10.8 x10^3/uL (4.0-11.0)
[2018-07-29] MEDS: NITROGLYCERIN OINT 1 GM PACKET. TP SCH ×2 (06:00→12:58)
[2018-07-29 06:08] LABS: ALBUMIN 2.7 g/dL (3.4-5.0); ALBUMIN/GLOBULIN RATIO 0.8 (1.0-1.7); CALCIUM 8.6 mg/dL (8.5-10.1); CREATININE 1.2 mg/dL (0.7-1.3); GFR 67.8; POTASSIUM 3.4 mmol/L (3.5-5.1); TOTAL BILIRUBIN 0.7 mg/dL (0.2-1.0); TOTAL PROTEIN 6.2 g/dL (6.4-8.2)
[2018-07-29 07:00] VITALS: BP 172/105
[2018-07-29] MEDS ORDERED: ASPIRIN ENTERIC COATED 325 MG TABLET.DR. PO SCH (08:00)
[2018-07-29] MEDS ORDERED: LISINOPRIL 20 MG TABLET PO SCH ×2 (09:00)
[2018-07-29] MEDS: FUROSEMIDE 40 MG TABLET. PO SCH (09:28)
[2018-07-29] MEDS: CARVEDILOL 6.25 MG TABLET. PO SCH (09:29)
[2018-07-29] MEDS: LISINOPRIL 20 MG TABLET PO SCH (09:29)
[2018-07-29] MEDS: amLODIPine BESYLATE 10 MG TABLET PO SCH (09:30)
--- NOTE | 2018-07-29 09:46 | PDOC ---
PROGRESS NOTES History of Present Illness History of Present Illness Assessment/Plan Assessment/Plan ASSESSMENT 1. Malignant HTN 2. Cardiomyopathy: NICM 3. CKD: 4. chronic systolic/diastolic CHF: 5. Substance abuse: , meth use 6. Elevated troponin: DEMAND 7. Hx of Protein S deficiency 8. Severe pulmonary hypertension The PA pressure was estimated at 70 mmHg. 9. Tobacco abuse 10. Noncompliance plan 1. Amlodipine. lisinopril and IV lasix. 2. Lipid panel . statin . ASA. 3. Smoking cessation, discussed, educated 4. substance abuse cessation 5. Na restriction and daily wt. 6. Leg swelling , venous doppler and rule out DVT. pending 7. Dietitian 8. DVT PROPHYLAXIS states he has no insurance, but has money for his meds, agrees to find a pcp joan, perhaps a [facility] Vitals Vitals Vital Signs Date Time Temp Pulse Resp B/P (MAP) Pulse Ox O2 Delivery O2 Flow Rate FiO2 07/29/18 09:30 93 172/105 07/29/18 07:00 98.0 20 99 Room Air 98.0 Physical Exam General: Alert, Oriented X3, Cooperative, No acute distress Heart: Regular rate (SR), Other (3/6 systolic murmur to LLS border) Lungs: Clear Abdomen: Normal bowel sounds, Soft Extremities: No cyanosis, Other (1 PLus edema) Skin: No breakdown, No significant lesion Labs LABS Laboratory Tests Test 07/28/18 10:55 07/29/18 04:00 Urine Collection Type Unknown Urine Color Yellow Urine Clarity Clear Urine pH 5.5 Urine Specific Soso 1.025 Urine Protein 30 mg/dL (NEG-TRACE) Urine Glucose (UA) Negative mg/dL (NEG) Urine Ketones (Stick) Negative mg/dL (NEG) Urine Blood Negative (NEG) Urine Nitrite Negative (NEG) Urine Bilirubin Negative (NEG) Urine Urobilinogen Dipstick 0.2 mg/dL (0.2 mg/dL) Urine Leukocyte Esterase Negative (NEG) Urine RBC Occ /HPF (0-2) Urine WBC 1-4 /HPF (0-4) Urine Squamous Epithelial Cells Few /LPF Urine Bacteria Few /HPF (0-FEW) Urine Hyaline Casts Few /HPF Urine Mucus Marked /LPF Urine Opiates Screen Neg (NEG) Urine Methadone Screen Neg (NEG) Urine Barbiturates Neg (NEG) Urine Phencyclidine Screen Neg (NEG) Urine Amphetamine/Methamphetamine Pos (NEG) Urine Benzodiazepines Screen Neg (NEG) Urine Cocaine Screen Neg (NEG) Urine Cannabinoids Screen Neg (NEG) Urine Ethyl Alcohol Neg (NEG) White Blood Count 10.8 x10^3/uL (4.0-11.0) Red Blood Count 4.81 x10^6/uL (4.30-5.70) Hemoglobin 13.6 g/dL (13.0-17.5) Hematocrit 41.1 % (39.0-53.0) Mean Corpuscular Volume 86 fL (79-100) Mean Corpuscular Hemoglobin 28 pg (25-35) Mean Corpuscular Hemoglobin Concent 33 g/dL (31-37) Red Cell Distribution Width 13.7 % (11.5-14.5) Platelet Count 259 x10^3/uL (140-400) Neutrophils (%) (Auto) 61 % (31-73) Lymphocytes (%) (Auto) 21 % (24-48) Monocytes (%) (Auto) 12 % (0-9) Eosinophils (%) (Auto) 5 % (0-3) Basophils (%) (Auto) 1 % (0-3) Neutrophils # (Auto) 6.6 x10^3uL (1.8-7.7) Lymphocytes # (Auto) 2.3 x10^3/uL (1.0-4.8) Monocytes # (Auto) 1.3 x10^3/uL (0.0-1.1) Eosinophils # (Auto) 0.5 x10^3/uL (0.0-0.7) Basophils # (Auto) 0.1 x10^3/uL (0.0-0.2) Sodium Level 143 mmol/L (136-145) Potassium Level 3.4 mmol/L (3.5-5.1) Chloride Level 104 mmol/L (98-107) Carbon Dioxide Level 31 mmol/L (21-32) Anion Gap 8 (6-14) Blood Urea Nitrogen 17 mg/dL (8-26) Creatinine 1.2 mg/dL (0.7-1.3) Estimated GFR (Cockcroft-Gault) 67.8 BUN/Creatinine Ratio 14 (6-20) Glucose Level 92 mg/dL (70-99) Calcium Level 8.6 mg/dL (8.5-10.1) Total Bilirubin 0.7 mg/dL (0.2-1.0) Aspartate Amino Transf (AST/SGOT) 18 U/L (15-37) Alanine Aminotransferase (ALT/SGPT) 32 U/L (16-63) Alkaline Phosphatase 108 U/L (46-116) Total Protein 6.2 g/dL (6.4-8.2) Albumin 2.7 g/dL (3.4-5.0) Albumin/Globulin Ratio 0.8 (1.0-1.7) Assessment and Plan Assessmemt and Plan Problems Medical Problems: (1) Hypertensive urgency Status: Acute Comment Review of Relevant I have reviewed the following items tiffanie (where applicable) has been applied. Labs Laboratory Tests Test 07/27/18 19:30 07/27/18 20:30 07/28/18 00:45 07/28/18 03:45 White Blood Count 10.0 x10^3/uL (4.0-11.0) Red Blood Count 5.08 x10^6/uL (4.30-5.70) Hemoglobin 14.5 g/dL (13.0-17.5) Hematocrit 43.9 % (39.0-53.0) Mean Corpuscular Volume 87 fL (79-100) Mean Corpuscular Hemoglobin 29 pg (25-35) Mean Corpuscular Hemoglobin Concent 33 g/dL (31-37) Red Cell Distribution Width 14.1 % (11.5-14.5) Platelet Count 266 x10^3/uL (140-400) Neutrophils (%) (Auto) 62 % (31-73) Lymphocytes (%) (Auto) 21 % (24-48) Monocytes (%) (Auto) 11 % (0-9) Eosinophils (%) (Auto) 5 % (0-3) Basophils (%) (Auto) 1 % (0-3) Neutrophils # (Auto) 6.2 x10^3uL (1.8-7.7) Lymphocytes # (Auto) 2.1 x10^3/uL (1.0-4.8) Monocytes # (Auto) 1.1 x10^3/uL (0.0-1.1) Eosinophils # (Auto) 0.5 x10^3/uL (0.0-0.7) Basophils # (Auto) 0.1 x10^3/uL (0.0-0.2) Sodium Level 141 mmol/L (136-145) 142 mmol/L (136-145) Potassium Level 4.3 mmol/L (3.5-5.1) 3.5 mmol/L (3.5-5.1) Chloride Level 104 mmol/L (98-107) 104 mmol/L (98-107) Carbon Dioxide Level 32 mmol/L (21-32) 24 mmol/L (21-32) Anion Gap 5 (6-14) 14 (6-14) Blood Urea Nitrogen 21 mg/dL (8-26) 23 mg/dL (8-26) Creatinine 1.7 mg/dL (0.7-1.3) 1.5 mg/dL (0.7-1.3) Estimated GFR (Cockcroft-Gault) 45.3 52.4 BUN/Creatinine Ratio 12 (6-20) Glucose Level 156 mg/dL (70-99) 172 mg/dL (70-99) Calcium Level 8.7 mg/dL (8.5-10.1) 8.3 mg/dL (8.5-10.1) Total Bilirubin 0.6 mg/dL (0.2-1.0) Aspartate Amino Transf (AST/SGOT) 31 U/L (15-37) Alanine Aminotransferase (ALT/SGPT) 40 U/L (16-63) Alkaline Phosphatase 126 U/L (46-116) Troponin I Quantitative 0.142 ng/mL (0.000-0.055) 0.125 ng/mL (0.000-0.055) 0.129 ng/mL (0.000-0.055) GL-Baw-V-Type Natriuretic Peptide 5290 pg/mL (0-124) Total Protein 6.7 g/dL (6.4-8.2) Albumin 3.0 g/dL (3.4-5.0) Albumin/Globulin Ratio 0.8 (1.0-1.7) Lipase 138 U/L (73-393) Prothrombin Time 15.5 SEC (11.7-14.0) Prothromb Time International Ratio 1.3 (0.8-1.1) Hemoglobin A1c 6.5 % (4.8-5.6) Magnesium Level 1.9 mg/dL (1.8-2.4) Triglycerides Level 111 mg/dL (0-150) Cholesterol Level 129 mg/dL (0-200) LDL Cholesterol, Calculated 75 mg/dL (0-100) VLDL Cholesterol, Calculated 22 mg/dL (0-40) Non-HDL Cholesterol Calculated 97 mg/dL (0-129) HDL Cholesterol 32 mg/dL (40-60) Cholesterol/HDL Ratio 4.0 Test 07/28/18 10:55 07/29/18 04:00 Urine Collection Type Unknown Urine Color Yellow Urine Clarity Clear Urine pH 5.5 Urine Specific Soso 1.025 Urine Protein 30 mg/dL (NEG-TRACE) Urine Glucose (UA) Negative mg/dL (NEG) Urine Ketones (Stick) Negative mg/dL (NEG) Urine Blood Negative (NEG) Urine Nitrite Negative (NEG) Urine Bilirubin Negative (NEG) Urine Urobilinogen Dipstick 0.2 mg/dL (0.2 mg/dL) Urine Leukocyte Esterase Negative (NEG) Urine RBC Occ /HPF (0-2) Urine WBC 1-4 /HPF (0-4) Urine Squamous Epithelial Cells Few /LPF Urine Bacteria Few /HPF (0-FEW) Urine Hyaline Casts Few /HPF Urine Mucus Marked /LPF Urine Opiates Screen Neg (NEG) Urine Methadone Screen Neg (NEG) Urine Barbiturates Neg (NEG) Urine Phencyclidine Screen Neg (NEG) Urine Amphetamine/Methamphetamine Pos (NEG) Urine Benzodiazepines Screen Neg (NEG) Urine Cocaine Screen Neg (NEG) Urine Cannabinoids Screen Neg (NEG) Urine Ethyl Alcohol Neg (NEG) White Blood Count 10.8 x10^3/uL (4.0-11.0) Red Blood Count 4.81 x10^6/uL (4.30-5.70) Hemoglobin 13.6 g/dL (13.0-17.5) Hematocrit 41.1 % (39.0-53.0) Mean Corpuscular Volume 86 fL (79-100) Mean Corpuscular Hemoglobin 28 pg (25-35) Mean Corpuscular Hemoglobin Concent 33 g/dL (31-37) Red Cell Distribution Width 13.7 % (11.5-14.5) Platelet Count 259 x10^3/uL (140-400) Neutrophils (%) (Auto) 61 % (31-73) Lymphocytes (%) (Auto) 21 % (24-48) Monocytes (%) (Auto) 12 % (0-9) Eosinophils (%) (Auto) 5 % (0-3) Basophils (%) (Auto) 1 % (0-3) Neutrophils # (Auto) 6.6 x10^3uL (1.8-7.7) Lymphocytes # (Auto) 2.3 x10^3/uL (1.0-4.8) Monocytes # (Auto) 1.3 x10^3/uL (0.0-1.1) Eosinophils # (Auto) 0.5 x10^3/uL (0.0-0.7) Basophils # (Auto) 0.1 x10^3/uL (0.0-0.2) Sodium Level 143 mmol/L (136-145) Potassium Level 3.4 mmol/L (3.5-5.1) Chloride Level 104 mmol/L (98-107) Carbon Dioxide Level 31 mmol/L (21-32) Anion Gap 8 (6-14) Blood Urea Nitrogen 17 mg/dL (8-26) Creatinine 1.2 mg/dL (0.7-1.3) Estimated GFR (Cockcroft-Gault) 67.8 BUN/Creatinine Ratio 14 (6-20) Glucose Level 92 mg/dL (70-99) Calcium Level 8.6 mg/dL (8.5-10.1) Total Bilirubin 0.7 mg/dL (0.2-1.0) Aspartate Amino Transf (AST/SGOT) 18 U/L (15-37) Alanine Aminotransferase (ALT/SGPT) 32 U/L (16-63) Alkaline Phosphatase 108 U/L (46-116) Total Protein 6.2 g/dL (6.4-8.2) Albumin 2.7 g/dL (3.4-5.0) Albumin/Globulin Ratio 0.8 (1.0-1.7) Laboratory Tests Test 07/28/18 10:55 07/29/18 04:00 Urine Collection Type Unknown Urine Color Yellow Urine Clarity Clear Urine pH 5.5 Urine Specific Soso 1.025 Urine Protein 30 mg/dL (NEG-TRACE) Urine Glucose (UA) Negative mg/dL (NEG) Urine Ketones (Stick) Negative mg/dL (NEG) Urine Blood Negative (NEG) Urine Nitrite Negative (NEG) Urine Bilirubin Negative (NEG) Urine Urobilinogen Dipstick 0.2 mg/dL (0.2 mg/dL) Urine Leukocyte Esterase Negative (NEG) Urine RBC Occ /HPF (0-2) Urine WBC 1-4 /HPF (0-4) Urine Squamous Epithelial Cells Few /LPF Urine Bacteria Few /HPF (0-FEW) Urine Hyaline Casts Few /HPF Urine Mucus Marked /LPF Urine Opiates Screen Neg (NEG) Urine Methadone Screen Neg (NEG) Urine Barbiturates Neg (NEG) Urine Phencyclidine Screen Neg (NEG) Urine Amphetamine/Methamphetamine Pos (NEG) Urine Benzodiazepines Screen Neg (NEG) Urine Cocaine Screen Neg (NEG) Urine Cannabinoids Screen Neg (NEG) Urine Ethyl Alcohol Neg (NEG) White Blood Count 10.8 x10^3/uL (4.0-11.0) Red Blood Count 4.81 x10^6/uL (4.30-5.70) Hemoglobin 13.6 g/dL (13.0-17.5) Hematocrit 41.1 % (39.0-53.0) Mean Corpuscular Volume 86 fL (79-100) Mean Corpuscular Hemoglobin 28 pg (25-35) Mean Corpuscular Hemoglobin Concent 33 g/dL (31-37) Red Cell Distribution Width 13.7 % (11.5-14.5) Platelet Count 259 x10^3/uL (140-400) Neutrophils (%) (Auto) 61 % (31-73) Lymphocytes (%) (Auto) 21 % (24-48) Monocytes (%) (Auto) 12 % (0-9) Eosinophils (%) (Auto) 5 % (0-3) Basophils (%) (Auto) 1 % (0-3) Neutrophils # (Auto) 6.6 x10^3uL (1.8-7.7) Lymphocytes # (Auto) 2.3 x10^3/uL (1.0-4.8) Monocytes # (Auto) 1.3 x10^3/uL (0.0-1.1) Eosinophils # (Auto) 0.5 x10^3/uL (0.0-0.7) Basophils # (Auto) 0.1 x10^3/uL (0.0-0.2) Sodium Level 143 mmol/L (136-145) Potassium Level 3.4 mmol/L (3.5-5.1) Chloride Level 104 mmol/L (98-107) Carbon Dioxide Level 31 mmol/L (21-32) Anion Gap 8 (6-14) Blood Urea Nitrogen 17 mg/dL (8-26) Creatinine 1.2 mg/dL (0.7-1.3) Estimated GFR (Cockcroft-Gault) 67.8 BUN/Creatinine Ratio 14 (6-20) Glucose Level 92 mg/dL (70-99) Calcium Level 8.6 mg/dL (8.5-10.1) Total Bilirubin 0.7 mg/dL (0.2-1.0) Aspartate Amino Transf (AST/SGOT) 18 U/L (15-37) Alanine Aminotransferase (ALT/SGPT) 32 U/L (16-63) Alkaline Phosphatase 108 U/L (46-116) Total Protein 6.2 g/dL (6.4-8.2) Albumin 2.7 g/dL (3.4-5.0) Albumin/Globulin Ratio 0.8 (1.0-1.7) Medications Current Medications Furosemide (Lasix) 20 mg 1X ONCE IVP Last administered on 07/27/18at 19:59; Start 07/27/18 at 19:30; Stop 07/27/18 at 19:34; Status DC Labetalol HCl (Normodyne Iv Push) 20 mg 1X ONCE IVP Last administered on 07/27at 20:00; Start 07/27/18 at 19:30; Stop 07/27/18 at 19:34; Status DC Aspirin (Children'S Aspirin) 324 mg 1X ONCE PO Last administered on at 20:00; Start 07/27/18 at 19:30; Stop 07/27/18 at 19:34; Status DC Nitroglycerin (Nitrostat) 0.4 mg PRN Q5MIN PRN SL CHEST PAIN; Start 07/27/18 at 21:15; Stop 07/28/18 at 21:14; Status DC Labetalol HCl (Normodyne Iv Push) 20 mg PRN Q2HRS PRN IVP HYPERTENSION, SEE COMMENTS Last administered on 07/28/18at 03:18; Start 07/27/18 at 21:15; Stop 07/28/18 at 10:34; Status DC Nitroglycerin (Nitro-Bid Oint) 2 inch 1X ONCE TP Last administered on at 21:31; Start 07/27/18 at 21:15; Stop 07/28/18 at 10:31; Status DC Famotidine (Pepcid) 20 mg 1X ONCE PO Last administered on 07/27/18at 21:30; Start 07/27/18 at 21:15; Stop 07/27/18 at 21:16; Status DC Acetaminophen (Tylenol) 650 mg PRN Q6HRS PRN PO HEADACHE Last administered on 07/28/18at 23:13; Start 07/28/18 at 06:15 Nitroglycerin (Nitro-Bid Oint) 1 inch Q6HRS TP Last administered on 07/29/18at 06:00; Start 07/28/18 at 12:00 Amlodipine Besylate (Norvasc) 10 mg DAILY PO Last administered on 07/29/18at 09: 30; Start 07/28/18 at 09:00 Hydralazine HCl (Apresoline) 50 mg TID PO ; Start 07/28/18 at 14:00; Stop at 14:00; Status DC Aspirin (Ecotrin) 325 mg DAILYWBKFT PO Last administered on 07/29/18at 09:30; Start 07/29/18 at 08:00 Aspirin (Ecotrin) 325 mg 1X ONCE PO Last administered on 07/28/18at 10:59; Start 07/28/18 at 10:15; Stop 07/28/18 at 10:26; Status DC Furosemide (Lasix) 40 mg DAILY PO Last administered on 07/29/18at 09:28; Start 07/29/18 at 09:00 Lisinopril (Prinivil) 20 mg DAILY PO ; Start 07/29/18 at 09:00; Stop 07/29/18 at 09:00; Status DC Carvedilol (Coreg) 6.25 mg BIDWMEALS PO ; Start 07/28/18 at 17:00; Stop at 17:00; Status DC Furosemide (Lasix) 40 mg 1X ONCE IVP Last administered on 07/28/18at 10:59; Start 07/28/18 at 10:30; Stop 07/28/18 at 10:34; Status DC Labetalol HCl (Normodyne Iv Push) 20 mg PRN Q2HR PRN IVP HYPERTENSION, SEE COMMENTS Last administered on 07/28/18at 23:14; Start 07/28/18 at 10:30 Atorvastatin Calcium (Lipitor) 10 mg QHS PO Last administered on 07/28/18at 20: 58; Start 07/28/18 at 21:00 Carvedilol (Coreg) 6.25 mg BIDWMEALS PO Last administered on 07/29/18at 09:29; Start 07/28/18 at 11:45 Enoxaparin Sodium (Lovenox 40mg Syringe) 40 mg Q24H SQ Last administered on at 14:42; Start 07/28/18 at 14:00 Lisinopril (Prinivil) 40 mg DAILY PO ; Start 07/29/18 at 09:00; Status UNV Lisinopril (Prinivil) 40 mg DAILY PO Last administered on 07/29/18at 09:29; Start 07/28/18 at 21:30 Active Scripts Active Reported Metoprolol Tartrate 50 Mg Tablet 50 Mg PO TID Vitals/I & O Vital Sign - Last 24 Hours 07/28/18 07/28/18 07/28/18 07/28/18 11:00 11:58 11:58 11:59 Temp 97.7 97.7 Pulse 88 88 88 88 Resp 18 B/P (MAP) 173/104 (127) 167/103 167/103 167/103 (124) Pulse Ox 96 O2 Delivery Room Air 07/28/18 07/28/18 07/28/18 07/28/18 15:00 17:20 17:22 17:22 Temp 97.9 97.9 Pulse 88 89 89 89 Resp 18 B/P (MAP) 175/101 (125) 186/117 186/117 (140) 186/117 Pulse Ox 98 O2 Delivery Room Air 07/28/18 07/28/18 07/28/18 07/28/18 18:19 19:15 19:42 21:30 Temp 97.9 97.9 Pulse 85 87 91 Resp 18 B/P (MAP) 167/102 (123) 172/104 (126) 182/115 Pulse Ox 97 O2 Delivery Room Air Room Air 07/28/18 07/28/18 07/28/18 07/29/18 23:14 23:20 23:44 03:30 Temp 97.7 97.7 97.7 97.7 Pulse 95 95 95 95 Resp 18 21 B/P (MAP) 185/113 185/113 183/113 (136) 146/87 (106) Pulse Ox 98 98 O2 Delivery Room Air Room Air 07/29/18 07/29/18 07/29/18 07/29/18 06:00 07:00 09:29 09:29 Temp 98.0 98.0 Pulse 95 93 93 93 Resp 20 B/P (MAP) 146/87 172/105 (127) 172/105 172/105 Pulse Ox 99 O2 Delivery Room Air 07/29/18 09:30 Pulse 93 B/P (MAP) 172/105 Intake and Output 07/28/18 07/28/18 07/29/18 15:01 23:01 07:01 Intake Total 500 ml 180 ml 100 ml Output Total 4050 ml 1025 ml 200 ml Balance -3550 ml -845 ml -100 ml YOU MYERS MD Jul 29, 2018 09:46
[2018-07-29 11:20] VITALS: BP 166/96
--- NOTE | 2018-07-29 12:43 | PDOC ---
CARDIOLOGY PROGRESS NOTE SUBJECTIVE: Patient is a 38 y/o male admitted because of exertional dyspnea, increasingly worse swelling in the lower extremities. Patient said he noticed the swelling get worse over multiple days but came to the hospital because it was hard to walk. The patient is now comfortable, urinating frequently. Patient admits to a positive history of amphetamine use. OBJECTIVE: Vital SIgns: Vital Signs Date Time Temp Pulse Resp B/P (MAP) Pulse Ox O2 Delivery O2 Flow Rate FiO2 07/29/18 11:20 97.7 91 16 166/96 (119) 98 Room Air 97.7 I & O Intake and Output 07/29/18 07:00 Intake Total 780 ml Output Total 5275 ml Balance -4495 ml Intake Oral 780 ml Output Urine Total 5275 ml # Voids 1 Objective: GEN.: No apparent distress. Alert and oriented. HEENT: Head is normocephalic, atraumatic NECK: Supple, no JVD noted. LUNGS: Decreased lung sounds at bilateral bases HEART: RRR S1, S2 present, possible murmur over apical listening post. Peripheral pulses intact ABDOMEN: Soft, nontender. Positive bowel sounds. EXTREMITIES: Trace pitting edema bilateral LE. NEUROLOGIC: Normal speech, normal tone PSYCHIATRIC: Normal affect, normal mood. SKIN: No ulcerations CURRENT MEDICATIONS: Current Medications Furosemide 40 mg Labetalol 20 mg PRN ASA 324 Lisinopril 40 mg Atorvastatin 10 mg Amlodopine 10 mg Carvedilol 6.25 mg Nitroglycerin 1 inch Q6HRS Enoxaparin 40 mg ASSESSMENT: 1. Malignant HTN 2. Non-ischemic cardiomyopathy 3. Acute on chronic systolic HFrEF 4. Elevated trops - likely due to the malignant HTN and HFrEF 5. Protein S Deficiency 6. Severe Pulmonary HTN - secondary to HFrEF 7. Hypokalemia 8. Methamphetamine abuse PLAN: 1. Continue current BP medications, titrate Coreg to 12.5 mg 2. Continue furosemide 40 mg 3. Add potassium supplementation Will monitor for one more day. Discussed with family and patient about drug cessation. Needs social work for free clinic help and ? medicaid application. CEM DANGELO MD Jul 29, 2018 12:43
[2018-07-29] MEDS ORDERED: CARVEDILOL 6.25 MG TABLET. PO ONE (12:45)
[2018-07-29] MEDS ORDERED: POTASSIUM CHLORIDE 20 MEQ TABLET.ER. PO ONE ×2 (12:45)
[2018-07-29] MEDS: ENOXAPARIN 40 MG/0.4 ML SYRINGE. SQ SCH (12:58)
[2018-07-29 15:45] VITALS: BP 173/99
[2018-07-29] MEDS: CARVEDILOL 12.5 MG TABLET. PO SCH (17:37)
[2018-07-29 19:30] VITALS: BP 174/99
[2018-07-29] MEDS: ATORVASTATIN CALCIUM 10 MG TABLET. PO SCH (20:43)
[2018-07-29 23:21] VITALS: BP 163/103
[2018-07-30 03:55] VITALS: BP 187/122
[2018-07-30 05:00] VITALS: BP 133/92
[2018-07-30] MEDS: LABETALOL 20 MG/4 ML DISP.SYRIN. IVP PRN (05:28)
[2018-07-30 07:52] VITALS: BP 163/114
[2018-07-30] MEDS: CARVEDILOL 12.5 MG TABLET. PO SCH (08:30)
[2018-07-30] MEDS: amLODIPine BESYLATE 10 MG TABLET PO SCH (08:30)
[2018-07-30] MEDS: FUROSEMIDE 40 MG TABLET. PO SCH (08:30)
[2018-07-30] MEDS: LISINOPRIL 20 MG TABLET PO SCH (08:31)
--- NOTE | 2018-07-30 08:31 | RAD ---
MR#: [id number] Date of Study: 07/28/2018 Ordering Physician: REAGAN JOYNER, Referring Physician: MARIIA JACINTO Tech: Maritza Ragsdale RDMS RVT APPROVED REPORT Bilateral Lower Extremity Venous Study for DVT Patient Location: IN-PATIENT Indications Lower Extremity Edema: Bilateral Shortness of breath Findings The bilateral lower extremity deep veins were evaluated for thrombus with color Doppler, spectral and grayscale images. On the right the grayscale images of the common femoral, superficial femoral and popliteal veins do n ot demonstrate any evidence of thrombus and these veins appear to be compressible. The below-knee vei ns were not well visualized but grossly appear to be compressible. Spectral imaging and color Doppler do not reveal any evidence of obstruction to flow with normal respirophasic variation above the knee . Below the knee there is spontaneous flow noted. On the left, the grayscale images of the common femoral, superficial femoral and popliteal veins do n ot demonstrate any evidence of thrombus and these veins appear to be compressible. The below-knee vei ns again were not well visualized but grossly appear to be compressible. Spectral imaging and color D oppler do not reveal any evidence of obstruction to flow with normal respirophasic variation above th e knee. The below-knee veins demonstrate spontaneous flow. Critical Notification Critical Value: No <Conclusion> No evidence of DVT in the bilateral lower extremities Signed by : Hector Theodore, Electronically Approved : 07/30/2018 08:30:45
[2018-07-30 11:40] VITALS: BP 177/116
[2018-07-30] MEDS ORDERED: CARV25TA PO (11:50)
[2018-07-30] MEDS ORDERED: LISI-130 PO (11:51)
[2018-07-30] MEDS ORDERED: AMLO10TA4 PO (11:52)
[2018-07-30] MEDS ORDERED: ATOR10TA PO (11:55)
[2018-07-30] MEDS ORDERED: POTA20TA82 PO (11:56)
[2018-07-30] MEDS ORDERED: FURO40TA4 PO (11:57)
--- NOTE | 2018-07-30 12:49 | PDOC ---
PROGRESS NOTES Chief Complaint Chief Complaint hypertensive urgency History of Present Illness History of Present Illness patient seen and examined this morning. He is doing well and wants to go home. He states symptoms have resolved. Vitals Vitals Vital Signs Date Time Temp Pulse Resp B/P (MAP) Pulse Ox O2 Delivery O2 Flow Rate FiO2 07/30/18 11:40 97.9 91 20 177/116 (136) 97 Room Air 97.9 Physical Exam General: Alert, Oriented X3, Cooperative, No acute distress Heart: Regular rate (SR), Other (3/6 systolic murmur to LLS border) Lungs: Clear Abdomen: Normal bowel sounds, Soft Extremities: No cyanosis, Other (1 PLus edema) Skin: No breakdown, No significant lesion Review of Systems Review of Systems lung: denies soa GI: denies nausea/vomiting heart: denies chest pain Assessment and Plan Assessmemt and Plan Assessment: 1. hypertensive urgency, possibly due to amphetamine use 2. non-ischemic cardiomyopathy 3. drug abuse Plan: 1. Possible discharge home today, if ok with cardiology 2. counseled patient on importance of stopping drug abuse 3. continue to take BP medications 4. labs 5. home meds 6. PT/OT 7. Appreciate subspecialty input Comment Review of Relevant I have reviewed the following items tiffanie (where applicable) has been applied. Labs Laboratory Tests Test 07/29/18 04:00 White Blood Count 10.8 x10^3/uL (4.0-11.0) Red Blood Count 4.81 x10^6/uL (4.30-5.70) Hemoglobin 13.6 g/dL (13.0-17.5) Hematocrit 41.1 % (39.0-53.0) Mean Corpuscular Volume 86 fL (79-100) Mean Corpuscular Hemoglobin 28 pg (25-35) Mean Corpuscular Hemoglobin Concent 33 g/dL (31-37) Red Cell Distribution Width 13.7 % (11.5-14.5) Platelet Count 259 x10^3/uL (140-400) Neutrophils (%) (Auto) 61 % (31-73) Lymphocytes (%) (Auto) 21 % (24-48) Monocytes (%) (Auto) 12 % (0-9) Eosinophils (%) (Auto) 5 % (0-3) Basophils (%) (Auto) 1 % (0-3) Neutrophils # (Auto) 6.6 x10^3uL (1.8-7.7) Lymphocytes # (Auto) 2.3 x10^3/uL (1.0-4.8) Monocytes # (Auto) 1.3 x10^3/uL (0.0-1.1) Eosinophils # (Auto) 0.5 x10^3/uL (0.0-0.7) Basophils # (Auto) 0.1 x10^3/uL (0.0-0.2) Sodium Level 143 mmol/L (136-145) Potassium Level 3.4 mmol/L (3.5-5.1) Chloride Level 104 mmol/L (98-107) Carbon Dioxide Level 31 mmol/L (21-32) Anion Gap 8 (6-14) Blood Urea Nitrogen 17 mg/dL (8-26) Creatinine 1.2 mg/dL (0.7-1.3) Estimated GFR (Cockcroft-Gault) 67.8 BUN/Creatinine Ratio 14 (6-20) Glucose Level 92 mg/dL (70-99) Calcium Level 8.6 mg/dL (8.5-10.1) Total Bilirubin 0.7 mg/dL (0.2-1.0) Aspartate Amino Transf (AST/SGOT) 18 U/L (15-37) Alanine Aminotransferase (ALT/SGPT) 32 U/L (16-63) Alkaline Phosphatase 108 U/L (46-116) Total Protein 6.2 g/dL (6.4-8.2) Albumin 2.7 g/dL (3.4-5.0) Albumin/Globulin Ratio 0.8 (1.0-1.7) Medications Current Medications Furosemide (Lasix) 20 mg 1X ONCE IVP Last administered on 07/27/18at 19:59; Start 07/27/18 at 19:30; Stop 07/27/18 at 19:34; Status DC Labetalol HCl (Normodyne Iv Push) 20 mg 1X ONCE IVP Last administered on 07/27at 20:00; Start 07/27/18 at 19:30; Stop 07/27/18 at 19:34; Status DC Aspirin (Children'S Aspirin) 324 mg 1X ONCE PO Last administered on at 20:00; Start 07/27/18 at 19:30; Stop 07/27/18 at 19:34; Status DC Nitroglycerin (Nitrostat) 0.4 mg PRN Q5MIN PRN SL CHEST PAIN; Start 07/27/18 at 21:15; Stop 07/28/18 at 21:14; Status DC Labetalol HCl (Normodyne Iv Push) 20 mg PRN Q2HRS PRN IVP HYPERTENSION, SEE COMMENTS Last administered on 07/28/18at 03:18; Start 07/27/18 at 21:15; Stop 07/28/18 at 10:34; Status DC Nitroglycerin (Nitro-Bid Oint) 2 inch 1X ONCE TP Last administered on at 21:31; Start 07/27/18 at 21:15; Stop 07/28/18 at 10:31; Status DC Famotidine (Pepcid) 20 mg 1X ONCE PO Last administered on 07/27/18at 21:30; Start 07/27/18 at 21:15; Stop 07/27/18 at 21:16; Status DC Acetaminophen (Tylenol) 650 mg PRN Q6HRS PRN PO HEADACHE Last administered on 07/28/18at 23:13; Start 07/28/18 at 06:15 Nitroglycerin (Nitro-Bid Oint) 1 inch Q6HRS TP Last administered on 07/29/18at 12:58; Start 07/28/18 at 12:00; Stop 07/29/18 at 13:05; Status DC Amlodipine Besylate (Norvasc) 10 mg DAILY PO Last administered on 07/30/18at 08: 30; Start 07/28/18 at 09:00 Hydralazine HCl (Apresoline) 50 mg TID PO ; Start 07/28/18 at 14:00; Stop at 14:00; Status DC Aspirin (Ecotrin) 325 mg DAILYWBKFT PO Last administered on 07/29/18at 09:30; Start 07/29/18 at 08:00; Stop 07/29/18 at 12:44; Status DC Aspirin (Ecotrin) 325 mg 1X ONCE PO Last administered on 07/28/18at 10:59; Start 07/28/18 at 10:15; Stop 07/28/18 at 10:26; Status DC Furosemide (Lasix) 40 mg DAILY PO Last administered on 07/30/18at 08:30; Start 07/29/18 at 09:00 Lisinopril (Prinivil) 20 mg DAILY PO ; Start 07/29/18 at 09:00; Stop 07/29/18 at 09:00; Status DC Carvedilol (Coreg) 6.25 mg BIDWMEALS PO ; Start 07/28/18 at 17:00; Stop at 17:00; Status DC Furosemide (Lasix) 40 mg 1X ONCE IVP Last administered on 07/28/18at 10:59; Start 07/28/18 at 10:30; Stop 07/28/18 at 10:34; Status DC Labetalol HCl (Normodyne Iv Push) 20 mg PRN Q2HR PRN IVP HYPERTENSION, SEE COMMENTS Last administered on 07/30/18at 05:28; Start 07/28/18 at 10:30 Atorvastatin Calcium (Lipitor) 10 mg QHS PO Last administered on 07/29/18at 20: 43; Start 07/28/18 at 21:00 Carvedilol (Coreg) 6.25 mg BIDWMEALS PO Last administered on 07/29/18at 09:29; Start 07/28/18 at 11:45; Stop 07/29/18 at 12:46; Status DC Enoxaparin Sodium (Lovenox 40mg Syringe) 40 mg Q24H SQ Last administered on 07/29/18at 12:58; Start 07/28/18 at 14:00 Lisinopril (Prinivil) 40 mg DAILY PO ; Start 07/29/18 at 09:00; Status UNV Lisinopril (Prinivil) 40 mg DAILY PO Last administered on 07/30/18at 08:31; Start 07/28/18 at 21:30 Carvedilol (Coreg) 12.5 mg BIDWMEALS PO Last administered on 07/30/18at 08:30; Start 07/29/18 at 17:00; Stop 07/30/18 at 11:16; Status DC Potassium Chloride (Klor-Con) 40 meq 1X ONCE PO Last administered on at 12:58; Start 07/29/18 at 12:45; Stop 07/29/18 at 12:47; Status DC Potassium Chloride (Klor-Con) 20 meq 1X ONCE PO Last administered on at 12:58; Start 07/29/18 at 12:45; Stop 07/29/18 at 12:47; Status DC Carvedilol (Coreg) 6.25 mg 1X ONCE PO Last administered on 07/29/18at 12:57; Start 07/29/18 at 12:45; Stop 07/29/18 at 12:47; Status DC Carvedilol (Coreg) 25 mg BIDWMEALS PO ; Start 07/30/18 at 17:00 Active Scripts Active Reported Furosemide 40 Mg Tablet 1 Tab PO DAILY Potassium Chloride 20 Meq Tablet.er 20 Meq PO DAILY Lipitor (Atorvastatin Calcium) 10 Mg Tablet 1 Tab PO QHS Norvasc (Amlodipine Besylate) 10 Mg Tablet 10 Mg PO DAILY Lisinopril 40 Mg Tablet 1 Tab PO DAILY Coreg (Carvedilol) 25 Mg Tablet 25 Mg PO BIDWMEALS Vitals/I & O Vital Sign - Last 24 Hours 07/29/18 07/29/18 07/29/18 07/29/18 12:57 12:58 15:45 17:37 Temp 97.7 97.7 Pulse 91 91 94 91 Resp 16 B/P (MAP) 166/96 166/96 173/99 (123) 166/96 Pulse Ox 98 O2 Delivery Room Air 07/29/18 07/29/18 07/29/18 07/30/18 19:30 20:20 23:21 03:55 Temp 98.0 98.0 97.7 98.0 98.0 97.7 Pulse 87 90 92 Resp 18 20 20 B/P (MAP) 174/99 (124) 163/103 (123) 187/122 (143) Pulse Ox 97 99 97 O2 Delivery Room Air Room Air Room Air Room Air 07/30/18 07/30/18 07/30/18 07/30/18 05:00 05:28 07:52 08:00 Temp 97.4 97.4 Pulse 85 92 87 Resp 18 B/P (MAP) 133/92 (106) 187/122 163/114 (130) Pulse Ox 96 O2 Delivery Room Air Room Air 12/2/18 12/2/18 12/2/18 12/2/18 08:30 08:30 08:31 11:40 Temp 97.9 97.9 Pulse 87 87 87 91 Resp 20 B/P (MAP) 163/114 163/114 163/114 177/116 (136) Pulse Ox 97 O2 Delivery Room Air Intake and Output 07/29/18 07/29/18 07/30/18 15:00 23:00 07:00 Intake Total 300 ml 600 ml 700 ml Output Total 1500 ml Balance 300 ml 600 ml -800 ml MARIIA JACINTO III DO Jul 30, 2018 12:49
[2018-07-30] MEDS ORDERED: CARVEDILOL 12.5 MG TABLET. PO SCH (17:00)
== END 2018-07-30 14:00 | disposition home or self-care (01) | DRG 917 ==
LOC: ER 19:02 → 2 SOUTH 21:26
PROVIDERS: ADMIT Internal Medicine; ATTEND Internal Medicine
DX: T43.622A Poisoning by amphetamines, intentional self-harm, initial encounter (principal); I50.23 Acute on chronic systolic (congestive) heart failure; D68.59 Other primary thrombophilia; I24.8 Other forms of acute ischemic heart disease; I42.9 Cardiomyopathy, unspecified; N18.4 Chronic kidney disease, stage 4 (severe); I13.0 Hypertensive heart and chronic kidney disease with heart failure and stage 1 through stage 4 chronic kidney disease, or unspecified chronic kidney disease; I16.0 Hypertensive urgency; E87.6 Hypokalemia; F15.10 Other stimulant abuse, uncomplicated; F17.210 Nicotine dependence, cigarettes, uncomplicated; I27.20 Pulmonary hypertension, unspecified; J44.9 Chronic obstructive pulmonary disease, unspecified; Z82.49 Family history of ischemic heart disease and other diseases of the circulatory system; Z91.19 Patient's noncompliance with other medical treatment and regimen; Y92.89 Other specified places as the place of occurrence of the external cause
CPT/HCPCS: 36415; 71045; 80048; 80053; 80061; 80307; 81001; 83036; 83690; 83735; 83880; 84484; 85025; 85610; 93005; 93306; 93970; 96374; 96375; 99406; J1650; J1940; J3490; 99285-25

== ENCOUNTER 2019-04-30 16:37 | Inpatient (IN) | payer SELFPAY ==
[~2019-04-30] VITALS: Ht 190.5 cm; Wt 118.6 kg
[~2019-04-30 16:37] MED LIST changes: +AMLO10TA4 PO; +ATOR10TA PO; +CARV25TA PO; +FURO40TA4 PO; +LISI-130 PO; +METO50TA6 PO; +POTA20TA82 PO
[2019-04-30] MEDS ORDERED: LABETALOL 20 MG/4 ML DISP.SYRIN. IVP ONE (17:30)
[2019-04-30] MEDS ORDERED: FUROSEMIDE 20 MG/2 ML VIAL. IVP ONE (17:30)
[2019-04-30] MEDS ORDERED: ASPIRIN CHEWABLE 81 MG TABLET. PO ONE (17:30)
--- NOTE | 2019-04-30 17:35 | PHYS DOC ---
Past Medical History Past Medical History: Hypertension, Other Additional Past Medical Histor: protein S deficiency (LANDRY GAMA MD) Past Surgical History: Other Additional Past Surgical Histo: brisket removed from throat, L foot (LANDRY GAMA MD) Alcohol Use: None Drug Use: None (LANDRY GAMA MD) Adult General Chief Complaint Chief Complaint: LOWER EXTREMITY SWELLING HPI HPI Patient is a 38 year old m p/w sob with exertion occasioanlly. noted nausea with minimal exertion as well as some upper abdominal pressure when tries to work around the house out of bp meds for over a month ran out of lasix a few days ago. increased lower extremity edema as well currently no chest apin. trying to get into see primary doctor but has not had luck yet. (LANDRY GAMA MD) Review of Systems Review of Systems Constitutional: Denies fever or chills [] Eyes: Denies change in visual acuity, redness, or eye pain [] HENT: Denies nasal congestion or sore throat [] Respiratory: Cardiovascular: No additional information not addressed in HPI [] GI: Denies abdominal pain, nausea, vomiting, bloody stools or diarrhea [] : Denies dysuria or hematuria [] Neurologic: Denies headache, focal weakness or sensory changes [] Endocrine: Denies polyuria or polydipsia [] All other systems were reviewed and found to be within normal limits, except as documented in this note. (LANDRY GAMA MD) Current Medications Current Medications Current Medications Medications (Trade) Dose Ordered Sig/Lena Start Time Stop Time Status Last Admin Dose Admin Acetaminophen/ Hydrocodone Bitart (Lortab 5/325) 1 tab 1X ONCE 04/30/19 18:30 04/30/19 18:34 DC Amoxicillin/ Clavulanate Potassium (Augmentin 875/ 125mg) 1 tab 1X ONCE 04/30/19 18:30 04/30/19 18:34 DC Aspirin (Children'S Aspirin) 324 mg 1X ONCE 04/30/19 17:30 04/30/19 17:34 DC 04/30/19 18:15 324 MG Furosemide (Lasix) 20 mg 1X ONCE 04/30/19 17:30 04/30/19 17:34 DC 04/30/19 18:15 20 MG Labetalol HCl (Normodyne Iv Push) 20 mg 1X ONCE 04/30/19 17:30 04/30/19 17:34 DC 04/30/19 18:15 20 MG Nitroglycerin (Nitro-Bid Oint) 1 inch 1X ONCE 04/30/19 18:15 04/30/19 18:16 DC 04/30/19 18:15 1 INCH (JA BREWER DO) Allergies Allergies Allergies Coded Allergies Type Severity Reaction Last Updated Verified No Known Drug Allergies 03/28/16 No (JA BREWER DO) Physical Exam Physical Exam Constitutional: Well developed, well nourished, no acute distress, non-toxic appearance. [] HENT: Normocephalic, atraumatic, bilateral external ears normal, oropharynx moist, no oral exudates, nose normal. [] Eyes: PERRLA, EOMI, conjunctiva normal, no discharge. [] Neck: Normal range of motion, no tenderness, supple, no stridor. [] Cardiovascular:Heart rate regular rhythm, 2/6 systolic murmur. Lungs & Thorax: decreased breath sounds b/l. Abdomen: Bowel sounds normal, soft, no tenderness, no masses, no pulsatile masses. [] Skin: Warm, dry, no erythema, no rash. [] Back: No tenderness, no CVA tenderness. [] Extremities: No tenderness, no cyanosis, no clubbing, ROM intactthree plus edema noted b/l Neurologic: Alert and oriented X 3, normal motor function, normal sensory function, no focal deficits noted. [] Psychologic: Affect normal, judgement normal, mood normal. [] (LANDRY GAMA MD) Physical Exam Constitutional: Well developed, well nourished, no acute distress, non-toxic appearance HENT: Normocephalic, atraumatic, oropharynx moist, diffuse dental decay noted, tenderness to left maxillary 2nd molar at site of significant dental jerad, no drainable fluctuance noted Eyes: Conjunctiva normal, no discharge Neck: Normal range of motion, no tenderness, supple Cardiovascular: Heart rate normal, regular rhythm Lungs & Thorax: Bilateral breath sounds equal, some fine rales noted at bases Abdomen: Soft, mild epigastric tenderness Skin: Warm, dry, no erythema, no rash Extremities: No tenderness, ROM intact, no edema Neurologic: Alert and oriented X 3, no focal deficits noted Psychologic: Affect normal, judgement normal (JA BREWER DO) Current Patient Data Vital Signs Vital Signs Date Time Temp Pulse Resp B/P (MAP) Pulse Ox O2 Delivery O2 Flow Rate FiO2 04/30/19 18:15 107 226/154 04/30/19 17:43 97.8 22 98 Room Air 97.8 (JA BREWER DO) Lab Values Laboratory Tests Test 04/30/19 17:35 White Blood Count 9.2 x10^3/uL (4.0-11.0) Red Blood Count 5.21 x10^6/uL (4.30-5.70) Hemoglobin 15.2 g/dL (13.0-17.5) Hematocrit 45.2 % (39.0-53.0) Mean Corpuscular Volume 87 fL (79-100) Mean Corpuscular Hemoglobin 29 pg (25-35) Mean Corpuscular Hemoglobin Concent 34 g/dL (31-37) Red Cell Distribution Width 14.1 % (11.5-14.5) Platelet Count 208 x10^3/uL (140-400) Neutrophils (%) (Auto) 63 % (31-73) Lymphocytes (%) (Auto) 20 % (24-48) L Monocytes (%) (Auto) 11 % (0-9) H Eosinophils (%) (Auto) 5 % (0-3) H Basophils (%) (Auto) 1 % (0-3) Neutrophils # (Auto) 5.7 x10^3/uL (1.8-7.7) Lymphocytes # (Auto) 1.8 x10^3/uL (1.0-4.8) Monocytes # (Auto) 1.0 x10^3/uL (0.0-1.1) Eosinophils # (Auto) 0.4 x10^3/uL (0.0-0.7) Basophils # (Auto) 0.1 x10^3/uL (0.0-0.2) Prothrombin Time 14.5 SEC (11.7-14.0) H Prothrombin Time INR 1.2 (0.8-1.1) H Sodium Level 144 mmol/L (136-145) Potassium Level 3.7 mmol/L (3.5-5.1) Chloride Level 106 mmol/L (98-107) Carbon Dioxide Level 29 mmol/L (21-32) Anion Gap 9 (6-14) Blood Urea Nitrogen 24 mg/dL (8-26) Creatinine 1.7 mg/dL (0.7-1.3) H Estimated GFR (Cockcroft-Gault) 45.3 BUN/Creatinine Ratio 14 (6-20) Glucose Level 114 mg/dL (70-99) H Calcium Level 8.3 mg/dL (8.5-10.1) L Total Bilirubin 0.9 mg/dL (0.2-1.0) Aspartate Amino Transferase (AST) 39 U/L (15-37) H Alanine Aminotransferase (ALT) 39 U/L (16-63) Alkaline Phosphatase 121 U/L (46-116) H Troponin I Quantitative 0.166 ng/mL (0.000-0.055) AG-Krd-C-Type Natriuretic Peptide 4547 pg/mL (0-124) H Total Protein 6.1 g/dL (6.4-8.2) L Albumin 3.0 g/dL (3.4-5.0) L Albumin/Globulin Ratio 1.0 (1.0-1.7) Laboratory Tests 04/30/19 17:35 Laboratory Tests 04/30/19 17:35 (JA BREWER DO) Lab Values Laboratory Tests Test 04/30/19 17:35 White Blood Count 9.2 x10^3/uL (4.0-11.0) Red Blood Count 5.21 x10^6/uL (4.30-5.70) Hemoglobin 15.2 g/dL (13.0-17.5) Hematocrit 45.2 % (39.0-53.0) Mean Corpuscular Volume 87 fL (79-100) Mean Corpuscular Hemoglobin 29 pg (25-35) Mean Corpuscular Hemoglobin Concent 34 g/dL (31-37) Red Cell Distribution Width 14.1 % (11.5-14.5) Platelet Count 208 x10^3/uL (140-400) Neutrophils (%) (Auto) 63 % (31-73) Lymphocytes (%) (Auto) 20 % (24-48) L Monocytes (%) (Auto) 11 % (0-9) H Eosinophils (%) (Auto) 5 % (0-3) H Basophils (%) (Auto) 1 % (0-3) Neutrophils # (Auto) 5.7 x10^3/uL (1.8-7.7) Lymphocytes # (Auto) 1.8 x10^3/uL (1.0-4.8) Monocytes # (Auto) 1.0 x10^3/uL (0.0-1.1) Eosinophils # (Auto) 0.4 x10^3/uL (0.0-0.7) Basophils # (Auto) 0.1 x10^3/uL (0.0-0.2) Prothrombin Time 14.5 SEC (11.7-14.0) H Prothrombin Time INR 1.2 (0.8-1.1) H Sodium Level 144 mmol/L (136-145) Potassium Level 3.7 mmol/L (3.5-5.1) Chloride Level 106 mmol/L (98-107) Carbon Dioxide Level 29 mmol/L (21-32) Anion Gap 9 (6-14) Blood Urea Nitrogen 24 mg/dL (8-26) Creatinine 1.7 mg/dL (0.7-1.3) H Estimated GFR (Cockcroft-Gault) 45.3 BUN/Creatinine Ratio 14 (6-20) Glucose Level 114 mg/dL (70-99) H Calcium Level 8.3 mg/dL (8.5-10.1) L Total Bilirubin 0.9 mg/dL (0.2-1.0) Aspartate Amino Transferase (AST) 39 U/L (15-37) H Alanine Aminotransferase (ALT) 39 U/L (16-63) Alkaline Phosphatase 121 U/L (46-116) H Troponin I Quantitative 0.166 ng/mL (0.000-0.055) HG-Wly-F-Type Natriuretic Peptide 4547 pg/mL (0-124) H Total Protein 6.1 g/dL (6.4-8.2) L Albumin 3.0 g/dL (3.4-5.0) L Albumin/Globulin Ratio 1.0 (1.0-1.7) Laboratory Tests 04/30/19 17:35 Laboratory Tests 04/30/19 17:35 (LANDRY GAMA MD) EKG EKG []nsr rate 108 sinus tach no stemi identified qtc 459no st depressions (LANDRY GAMA MD) Radiology/Procedures Radiology/Procedures [] (LANDRY GAMA MD) Radiology/Procedures PROCEDURE: PORTABLE CHEST 1V Portable single view chest HISTORY: Shortness of breath, bilateral leg swelling. COMPARISON: 07/27/2018. FINDINGS: The cardiac silhouette remains enlarged, similar morphology. No evidence of pneumothorax. No pleural effusion or infiltrate. IMPRESSION: Stable exam, no evidence of consolidating infiltrate. Electronically signed by: Ja Xiong MD (04/30/2019 6:14 PM) [facility] (JA BREWER DO) Impressions: CXR NEGATIVE ACUTE EXCEPT FOR MILD TO MODERATE CARDIOMEGALY (LANDRY GAMA MD) Course & Med Decision Making Course & Med Decision Making Pertinent Labs and Imaging studies reviewed. (See chart for details) 38 yo m hx of chf and hypertension out of meds bp 224/155, hr 108 pt has edema lower extremities. likely hypertensive urgency due to reduced compliance labs pending s/o to cate 1800 (LANDRY GAMA MD) Course & Med Decision Making Sign out received from Dr. Gama for patient with report of LEROY and leg swelling. Labs pending at time of sign out. Troponin elevated likely due to heart strain from CHF. Previous echo with EF of approx 20%. BNP elevated. BP previously addressed. Lasix also previously given. CXR stable. EKG stable. Patient seen and evaluated by myself. Patient now complaining of left maxillary 2nd molar pain. Significant dental jerad noted. Empiric antibiotic given. Pain addressed. Patient requiring admission for further evaluation and treatment. Discussed with Dr. Walters (hospitalist) who is in agreement with admission. Discussed findings and plan with patient and family, who acknowledge understanding and agreement. (JA BREWER DO) Dragon Disclaimer Dragon Disclaimer This electronic medical record was generated, in whole or in part, using a voice recognition dictation system. (LANDRY GAMA MD) Departure Departure Impression: Primary Impression: Acute exacerbation of CHF (congestive heart failure) Additional Impressions: Hypertension Dental caries Disposition: 09 ADMITTED INPATIENT Admitting Physician: POLA Gil) (JA BREWER DO) Condition: GUARDED Referrals: NO PCP (PCP) The HEART Score for CP Pts HEART Score for Chest Pain: HEART Score for Chest Pain Response (Comments) Value History Moderately Suspicious 1 ECG Normal 0 Age < 45 0 Risk Factors >3 Risk Factors or Hx CAD 2 Troponin >3 x Normal Limit 2 Total 5 Risk Factors: Risk Factors: DM, Current or recent (<one month) smoker, HTN, HLP, family his tory of CAD, obesity. Risk Scores: Score 0 - 3: 2.5% MACE over next 6 weeks - Discharge Home Score 4 - 6: 20.3% MACE over next 6 weeks - Admit for Clinical Observation Score 7 - 10: 72.7% MACE over next 6 weeks - Early Invasive Strategies (JA BREWER DO) Risk Factors: Risk Factors: DM, Current or recent (<one month) smoker, HTN, HLP, family history of CAD, obesity. Risk Scores: Score 0 - 3: 2.5% MACE over next 6 weeks - Discharge Home Score 4 - 6: 20.3% MACE over next 6 weeks - Admit for Clinical Observation Score 7 - 10: 72.7% MACE over next 6 weeks - Early Invasive Strategies (LANDRY GAMA MD) Problem Qualifiers Primary Impression: Acute exacerbation of CHF (congestive heart failure) Heart failure type: systolic Qualified Codes: I50.23 - Acute on chronic systolic (congestive) heart failure Additional Impressions: Hypertension Hypertension type: unspecified Qualified Codes: I10 - Essential (primary) hypertension LANDRY GAMA MD Apr 30, 2019 17:35 JA BREWER DO Apr 30, 2019 18:43
[2019-04-30 17:41] LABS: BASO # 0.1 x10^3/uL (0.0-0.2); BASO % 1 % (0-3); EOS # 0.4 x10^3/uL (0.0-0.7); EOS % 5 % (0-3); HEMATOCRIT 45.2 % (39.0-53.0); HEMOGLOBIN 15.2 g/dL (13.0-17.5); LYMPH # 1.8 x10^3/uL (1.0-4.8); LYMPH % 20 % (24-48); MEAN CORPUSCULAR HEMOGLOBIN 29 pg (25-35); MEAN CORPUSCULAR HGB CONC 34 g/dL (31-37); MEAN CORPUSCULAR VOLUME 87 fL (79-100); MONO % 11 % (0-9); NEUT # 5.7 x10^3/uL (1.8-7.7); NEUT % 63 % (31-73); PLATELET COUNT 208 x10^3/uL (140-400); RED BLOOD COUNT 5.21 x10^6/uL (4.30-5.70); RED CELL DISTRIBUTION WIDTH 14.1 % (11.5-14.5); WHITE BLOOD COUNT 9.2 x10^3/uL (4.0-11.0)
[2019-04-30 17:50] LABS: CALCIUM 8.3 mg/dL (8.5-10.1); CREATININE 1.7 mg/dL (0.7-1.3); GFR 45.3; POTASSIUM 3.7 mmol/L (3.5-5.1); PROTHROMBIN TIME PATIENT 14.5 SEC (11.7-14.0)
[2019-04-30 17:58] LABS: TOTAL BILIRUBIN 0.9 mg/dL (0.2-1.0); TOTAL PROTEIN 6.1 g/dL (6.4-8.2)
[2019-04-30] MEDS ORDERED: NITROGLYCERIN OINT 1 GM PACKET. TP ONE (18:15)
--- NOTE | 2019-04-30 18:17 | RAD ---
Portable single view chest HISTORY: Shortness of breath, bilateral leg swelling. COMPARISON: 07/27/2018. FINDINGS: The cardiac silhouette remains enlarged, similar morphology. No evidence of pneumothorax. No pleural effusion or infiltrate. IMPRESSION: Stable exam, no evidence of consolidating infiltrate. Electronically signed by: Ja Xiong MD (04/30/2019 6:14 PM) [facility]
[2019-04-30] MEDS ORDERED: HYDROcodone/APAP 5/325MG 1 TAB TABLET PO ONE (18:30)
[2019-04-30] MEDS ORDERED: AMOXICILLIN/K CLAV 875/125MG TABLET. PO ONE (18:30)
[2019-04-30] MEDS ORDERED: ONDANSETRON PF 4 MG/2 ML VIAL. IV PRN (18:45)
[2019-04-30] MEDS ORDERED: HYDROcodone/APAP 5/325MG 1 TAB TABLET PO PRN (20:45)
[2019-04-30 20:55] VITALS: BP 176/120
--- NOTE | 2019-04-30 21:00 | NUR ---
The patient, FELICIA MARTINEZ, 38 y/o, M admitted by ART AMAYA MD, was given written information regarding hospital policies, unit procedures and contact persons . Vital stable, patient in bed ,call light in reach. Will continue to monitor.
[2019-04-30 23:05] VITALS: BP 208/125
[2019-04-30] MEDS: HYDROcodone/APAP 10/325 1 TAB TABLET PO PRN (23:34)
[2019-04-30] MEDS: hydrALAZINE 20 MG/ML VIAL. IVP PRN (23:34)
[2019-05-01] VITALS (7 sets, daily range): BP systolic 95–179; BP diastolic 45–126
[2019-05-01 05:53] LABS: CALCIUM 8.3 mg/dL (8.5-10.1); CREATININE 1.5 mg/dL (0.7-1.3); GFR 52.4; MAGNESIUM 1.8 mg/dL (1.8-2.4); POTASSIUM 3.2 mmol/L (3.5-5.1)
--- NOTE | 2019-05-01 06:46 | EKG ---
[facility] [address] [place] [address] Test Date: 2019-04-30 Test Time: 17:33:29 Pat Name: FELICIA MARTINEZ Department: Room: Gender: M Measurement Superintendent: : 1980 Requested By: LANDRY OCHOA Order Number: [id number] Reading MD: Measurements Intervals [place] Rate: 108 P: 62 [place]: 166 QRS: 97 QRSD: 82 T: 43 QT: 340 QTc: 459 Interpretive Statements SINUS TACHYCARDIA LEFT ATRIAL ABNORMALITY RIGHTWARD AXIS QRS(T) CONTOUR ABNORMALITY CONSIDER INFERIOR MYOCARDIAL DAMAGE ABNORMAL ECG RI6.01 No previous ECG available for comparison
[2019-05-01] MEDS: HYDROcodone/APAP 10/325 1 TAB TABLET PO PRN ×2 (08:34→15:58)
[2019-05-01] MEDS: hydrALAZINE 20 MG/ML VIAL. IVP PRN (08:36)
[2019-05-01] MEDS ORDERED: ACETAMINOPHEN/CODEINE 300/30MG TABLET. PO PRN (08:45)
[2019-05-01] MEDS ORDERED: ONDANSETRON PF 4 MG/2 ML VIAL. IV PRN (08:45)
[2019-05-01] MEDS ORDERED: POTASSIUM CHLORIDE 20 MEQ TABLET.ER. PO ONE (08:45)
[2019-05-01] MEDS ORDERED: LABETALOL 20 MG/4 ML DISP.SYRIN. IVP PRN (08:45)
[2019-05-01] MEDS ORDERED: ACETAMINOPHEN 500 MG TABLET PO PRN (08:45)
--- NOTE | 2019-05-01 11:35 | PDOC2 ---
CARDIAC CONSULT DATE OF CONSULT Date of Consult DATE: 05/01/19 TIME: 11:25 REASON FOR CONSULT Reason for Consult: CHF Elevated troponin REFERRING PHYSICIAN Referring Physician: Dr. Bernard SOURCE Source: Chart review, Patient HISTORY OF PRESENT ILLNESS HISTORY OF PRESENT ILLNESS This is a 38 yo male, with a history of cardiomyopathy, who presented secondary to lower extremity edema. Ran out of lasix a couple of days ago. No chest pain, palpitations, dizziness, diaphoresis, or nausea/vomiting. Unfortunately does not have insurance and has not taken any of his blood pressure medications since July. Admits to continued methamphetamine use, although he reports this to be much less frequent than previous. Last used about a week ago. PAST MEDICAL HISTORY Cardiovascular: CHF, HTN, Pulmonary hypertension Heme/Onc: Other (protein S def) Renal/: Chronic renal insuff PAST SURGICAL HISTORY Past Surgical History: No pertinent history FAMILY HISTORY Family History: Heart Disease (father ) SOCIAL HISTORY Smoke: 1 pack per day ALCOHOL: none Drugs: Crystal meth Lives: with Family CURRENT MEDICATIONS CURRENT MEDICATIONS Current Medications Medications (Trade) Dose Ordered Sig/Lena Route PRN Reason Start Time Stop Time Status Last Admin Dose Admin Labetalol HCl (Normodyne Iv Push) 20 mg 1X ONCE IVP 04/30/19 17:30 04/30/19 17:34 DC 04/30/19 18:15 Furosemide (Lasix) 20 mg 1X ONCE IVP 04/30/19 17:30 04/30/19 17:34 DC 04/30/19 18:15 Aspirin (Children'S Aspirin) 324 mg 1X ONCE PO 04/30/19 17:30 04/30/19 17:34 DC 04/30/19 18:15 Nitroglycerin (Nitro-Bid Oint) 1 inch 1X ONCE TP 04/30/19 18:15 04/30/19 18:16 DC 04/30/19 18:15 Amoxicillin/ Clavulanate Potassium (Augmentin 875/ 125mg) 1 tab 1X ONCE PO 04/30/19 18:30 04/30/19 18:34 DC 04/30/19 19:07 Acetaminophen/ Hydrocodone Bitart (Lortab 5/325) 1 tab 1X ONCE PO 04/30/19 18:30 04/30/19 18:34 DC 04/30/19 19:07 Hydralazine HCl (Apresoline Inj) 10 mg PRN Q4HRS PRN IVP ELEVATED BP, 2ND CHOICE 04/30/19 23:00 05/01/19 08:36 Acetaminophen/ Hydrocodone Bitart (Lortab ) 1 tab PRN Q6HRS PRN PO SEVERE PAIN 7-10 04/30/19 23:30 05/01/19 08:36 ALLERGIES ALLERGIES: Coded Allergies: No Known Drug Allergies (Unverified , 03/28/16) ROS Review of System 14 point ROS conducted with pertinent positives noted above in HPI. PHYSICAL EXAM General: Alert, Oriented X3, Cooperative, No acute distress HEENT: Atraumatic, Mucous membr. moist/pink Lungs: Clear to auscultation Heart: Regular rate, Normal S1, Normal S2 Abdomen: Soft, No tenderness Extremities: Normal pulses, Other (1+ bilateral ankle edema) Skin: No significant lesion Neuro: Normal speech, Sensation intact Psych/Mental Status: Mental status NL, Mood NL MUSCULOSKELETAL: Osteoarthritic changes both hands VITALS/I&O VITALS/I&O: Vital Signs Date Time Temp Pulse Resp B/P (MAP) Pulse Ox O2 Delivery O2 Flow Rate FiO2 05/01/19 11:00 98.0 88 20 146/88 (107) 97 Room Air 98.0 I & O 04/30/19 04/30/19 05/01/19 14:59 22:59 06:59 Intake Total 0 ml 400 ml Output Total 1100 ml Balance 0 ml -700 ml LABS Lab: Laboratory Tests Test 04/30/19 17:35 04/30/19 21:50 05/01/19 00:25 05/01/19 04:45 White Blood Count 9.2 x10^3/uL (4.0-11.0) Red Blood Count 5.21 x10^6/uL (4.30-5.70) Hemoglobin 15.2 g/dL (13.0-17.5) Hematocrit 45.2 % (39.0-53.0) Mean Corpuscular Volume 87 fL (79-100) Mean Corpuscular Hemoglobin 29 pg (25-35) Mean Corpuscular Hemoglobin Concent 34 g/dL (31-37) Red Cell Distribution Width 14.1 % (11.5-14.5) Platelet Count 208 x10^3/uL (140-400) Neutrophils (%) (Auto) 63 % (31-73) Lymphocytes (%) (Auto) 20 % (24-48) L Monocytes (%) (Auto) 11 % (0-9) H Eosinophils (%) (Auto) 5 % (0-3) H Basophils (%) (Auto) 1 % (0-3) Neutrophils # (Auto) 5.7 x10^3/uL (1.8-7.7) Lymphocytes # (Auto) 1.8 x10^3/uL (1.0-4.8) Monocytes # (Auto) 1.0 x10^3/uL (0.0-1.1) Eosinophils # (Auto) 0.4 x10^3/uL (0.0-0.7) Basophils # (Auto) 0.1 x10^3/uL (0.0-0.2) Prothrombin Time 14.5 SEC (11.7-14.0) H Prothrombin Time INR 1.2 (0.8-1.1) H Sodium Level 144 mmol/L (136-145) 141 mmol/L (136-145) Potassium Level 3.7 mmol/L (3.5-5.1) 3.2 mmol/L (3.5-5.1) L Chloride Level 106 mmol/L (98-107) 105 mmol/L (98-107) Carbon Dioxide Level 29 mmol/L (21-32) 27 mmol/L (21-32) Anion Gap 9 (6-14) 9 (6-14) Blood Urea Nitrogen 24 mg/dL (8-26) 23 mg/dL (8-26) Creatinine 1.7 mg/dL (0.7-1.3) H 1.5 mg/dL (0.7-1.3) H Estimated GFR (Cockcroft-Gault) 45.3 52.4 BUN/Creatinine Ratio 14 (6-20) Glucose Level 114 mg/dL (70-99) H 133 mg/dL (70-99) H Calcium Level 8.3 mg/dL (8.5-10.1) L 8.3 mg/dL (8.5-10.1) L Total Bilirubin 0.9 mg/dL (0.2-1.0) Aspartate Amino Transferase (AST) 39 U/L (15-37) H Alanine Aminotransferase (ALT) 39 U/L (16-63) Alkaline Phosphatase 121 U/L (46-116) H Troponin I Quantitative 0.166 ng/mL (0.000-0.055) 0.202 ng/mL (0.000-0.055) 0.153 ng/mL (0.000-0.055) JJ-Pvm-C-Type Natriuretic Peptide 4547 pg/mL (0-124) H Total Protein 6.1 g/dL (6.4-8.2) L Albumin 3.0 g/dL (3.4-5.0) L Albumin/Globulin Ratio 1.0 (1.0-1.7) Magnesium Level 1.8 mg/dL (1.8-2.4) Thyroid Stimulating Hormone (TSH) 2.820 uIU/mL (0.358-3.74) Laboratory Tests 04/30/19 17:35 Laboratory Tests 04/30/19 17:35 05/01/19 04:45 ECHOCARDIOGRAM ECHOCARDIOGRAM <Conclusion> The left ventricular systolic function is severely impaired. The Ejection Fraction is 20%. Mild mitral regurgitation. Moderate tricuspid regurgitation. There is severe pulmonary hypertension. The PA pressure was estimated at 70 mmHg. There is no evidence of significant pericardial effusion. DATE: 07/28/18 0918 ASSESSMENT/PLAN ASSESSMENT/PLAN 1. Malignant HTN; secondary to med noncompliance. better controlled 2. Mild troponin elevation; peak 0.2. Most probably type II, demand ischemia secondary to above 3. Acute on chronic systolic HF; improved with diuresis 4. Cardiomyopathy: likely NICM with chronic uncontrolled HTN and substance abuse. LVEF 06/2018 20%. 5. CKD 6. Substance abuse; methamphetamine use 7. Hx of Protein S deficiency 8. Severe pulmonary HTN 9. Tobaccoism 10. Hypokalemia; replaced. 11. Noncompliance Recommendations Diuresis Resume home antiHTN therapy Echo to assess LV systolic function Optimization therapy Discussed encourage compliance and cessation from tobacco and drug use dietary services manager consult; will need to establish PCP. Disability reportedly pending. Consider outpatient ischemic evaluation when f/u has been established. MICHELLE HORNER APRN May 01, 2019 11:35
[2019-05-01] MEDS: POTASSIUM CHLORIDE 20 MEQ TABLET.ER. PO SCH (12:00)
--- NOTE | 2019-05-01 12:16 | NUR ---
SS following for discharge planning. SS reviewed pt chart. Pt is self pay pt. HCFS following for self pay status. Pt is from home and is currently on room air. No discharge needs noted at this time. SS will continue to follow for discharge planning.
--- NOTE | 2019-05-01 12:17 | PDOC1 ---
History and Physical Date of Admission Date of Admission DATE: 05/01/19 TIME: 12:13 Identification/Chief Complaint Chief Complaint SOA and leg swelling Source Source: Caregiver, Chart review, Patient History of Present Illness History of Present Illness 38-year-old male, self-pay, ran out of meds since July, Lasix maybe one month. BMI 33, known non ischemic cardiomyopathy, comes in because of SOA and bilateral lower extremity edema with mild troponin elevation and high blood pressure. Echocardiogram below: <Conclusion> The left ventricular systolic function is severely impaired. The Ejection Fraction is 20%. Mild mitral regurgitation. Moderate tricuspid regurgitation. There is severe pulmonary hypertension. The PA pressure was estimated at 70 mmHg. There is no evidence of significant pericardial effusion. Etiology is involved, got Lasix 20 mg IV �1 Blood pressure high have reconciled multiple meds including Lasix and multiple BP meds. oKay to eat, troponin 0.1, 0.2 then 0.1 Past Medical History Cardiovascular: CHF, HTN, Pulmonary hypertension Pulmonary: COPD GI: No pertinent hx Heme/Onc: Other (protein S def) Renal/: Chronic renal insuff Past Surgical History Past Surgical History: Other Family History Family History: Alcohol Abuse, Hypertension Social History ALCOHOL: occassional Drugs: Cocaine, Crystal meth Current Problem List Problem List Problems Medical Problems: (1) Acute exacerbation of CHF (congestive heart failure) Status: Acute (2) Dental caries Status: Acute (3) Hypertension Status: Acute Current Medications Current Medications Current Medications Labetalol HCl (Normodyne Iv Push) 20 mg 1X ONCE IVP Last administered on 04/30/19 18:15; Start 04/30/19 at 17:30; Stop 04/30/19 at 17:34; Status DC Furosemide (Lasix) 20 mg 1X ONCE IVP Last administered on 04/30/19 18:15; Start 04/30/19 at 17:30; Stop 04/30/19 at 17:34; Status DC Aspirin (Children'S Aspirin) 324 mg 1X ONCE PO Last administered on 04/30/19at 18:15; Start 04/30/19 at 17:30; Stop 04/30/19 at 17:34; Status DC Nitroglycerin (Nitro-Bid Oint) 1 inch 1X ONCE TP Last administered on 04/30/19 18:15; Start 04/30/19 at 18:15; Stop 04/30/19 at 18:16; Status DC Amoxicillin/ Clavulanate Potassium (Augmentin 875/ 125mg) 1 tab 1X ONCE PO Last administered on 04/30/19at 19:07; Start 04/30/19 at 18:30; Stop 04/30/19 at 18:34; Status DC Acetaminophen/ Hydrocodone Bitart (Lortab 5/325) 1 tab 1X ONCE PO Last administered on 04/30/19at 19:07; Start 04/30/19 at 18:30; Stop 04/30/19 at 18:34; Status DC Ondansetron HCl (Zofran) 4 mg PRN Q8HRS PRN IV NAUSEA/VOMITING; Start 04/30/19 at 18:45; Stop 05/01/19 at 08:34; Status DC Acetaminophen/ Hydrocodone Bitart (Lortab 5/325) 1 tab PRN Q4HRS PRN PO MODERATE PAIN 4-6; Start 04/30/19 at 20:45 Atorvastatin Calcium (Lipitor) 10 mg QHS PO ; Start 05/01/19 at 21:00 Lisinopril (Prinivil) 40 mg DAILY PO ; Start 05/01/19 at 09:00 Carvedilol (Coreg) 25 mg BIDWMEALS PO ; Start 05/01/19 at 08:00 Hydralazine HCl (Apresoline Inj) 10 mg PRN Q4HRS PRN IVP ELEVATED BP, 2ND CHOICE Last administered on 05/01/19at 08:36; Start 04/30/19 at 23:00 Hydralazine HCl (Apresoline) 25 mg TID PO ; Start 05/01/19 at 09:00 Isosorbide Mononitrate (Imdur) 30 mg DAILY PO ; Start 05/01/19 at 09:00 Acetaminophen/ Hydrocodone Bitart (Lortab 10/325) 1 tab PRN Q6HRS PRN PO SEVERE PAIN 7-10 Last administered on 05/01/19at 08:36; Start 04/30/19 at 23:30 Ondansetron HCl (Zofran) 4 mg PRN Q6HRS PRN IV NAUSEA/VOMITING; Start 05/01/19 at 08:45 Labetalol HCl (Normodyne Iv Push) 20 mg PRN Q2HR PRN IVP HYPERTENSION, 1ST CHOICE; Start 05/01/19 at 08:45 Acetaminophen (Tylenol) 500 mg PRN Q6HRS PRN PO TEMP OR MILD PAIN (1ST CHOICE); Start 05/01/19 at 08:45 Acetaminophen/ Codeine Phosphate (Tylenol #3) 1 tab PRN Q6HRS PRN PO MILD PAIN (2ND CHOICE); Start 05/01/19 at 08:45 Potassium Chloride (Klor-Con) 40 meq 1X ONCE PO ; Start 05/01/19 at 08:45; Stop 05/01/19 at 08:46; Status DC Active Scripts Active Reported Furosemide 40 Mg Tablet 1 Tab PO DAILY Potassium Chloride 20 Meq Tablet.er 20 Meq PO DAILY Lipitor (Atorvastatin Calcium) 10 Mg Tablet 1 Tab PO QHS Norvasc (Amlodipine Besylate) 10 Mg Tablet 10 Mg PO DAILY Lisinopril 40 Mg Tablet 1 Tab PO DAILY Coreg (Carvedilol) 25 Mg Tablet 25 Mg PO BIDWMEALS Allergies Allergies: Coded Allergies: No Known Drug Allergies (Unverified , 03/28/16) Physical Exam General: No acute distress HEENT: Atraumatic, PERRLA, Other (equal air entry, diminished breath sounds, crackles bases, no JVD, no wheezing) Lungs: Normal air movement Heart: S1S2, RRR, no thrills, no rubs, no gallops, no murmurs Cardiovascular: S1, S2 Breasts: Normal, Rt breast nml w/o mass, Lt breast nml w/o mass, Nipples normal Abdomen: Normal bowel sounds, Soft, No tenderness, No hepatosplenomegaly, No masses Rectal Exam: not examined Extremities: No cyanosis, Normal pulses, Other (+2 pitting edema bilateral l ower extremity) Skin: No rashes, No breakdown, No significant lesion Psych/Mental Status: Mental status NL, Mood NL Vitals Vitals Vital Signs Date Time Temp Pulse Resp B/P (MAP) Pulse Ox O2 Delivery O2 Flow Rate FiO2 05/01/19 11:00 98.0 88 20 146/88 (107) 97 Room Air 98.0 Labs Labs Laboratory Tests Test 04/30/19 17:35 04/30/19 21:50 05/01/19 00:25 05/01/19 04:45 White Blood Count 9.2 x10^3/uL (4.0-11.0) Red Blood Count 5.21 x10^6/uL (4.30-5.70) Hemoglobin 15.2 g/dL (13.0-17.5) Hematocrit 45.2 % (39.0-53.0) Mean Corpuscular Volume 87 fL (79-100) Mean Corpuscular Hemoglobin 29 pg (25-35) Mean Corpuscular Hemoglobin Concent 34 g/dL (31-37) Red Cell Distribution Width 14.1 % (11.5-14.5) Platelet Count 208 x10^3/uL (140-400) Neutrophils (%) (Auto) 63 % (31-73) Lymphocytes (%) (Auto) 20 % (24-48) Monocytes (%) (Auto) 11 % (0-9) Eosinophils (%) (Auto) 5 % (0-3) Basophils (%) (Auto) 1 % (0-3) Neutrophils # (Auto) 5.7 x10^3/uL (1.8-7.7) Lymphocytes # (Auto) 1.8 x10^3/uL (1.0-4.8) Monocytes # (Auto) 1.0 x10^3/uL (0.0-1.1) Eosinophils # (Auto) 0.4 x10^3/uL (0.0-0.7) Basophils # (Auto) 0.1 x10^3/uL (0.0-0.2) Prothrombin Time 14.5 SEC (11.7-14.0) Prothromb Time International Ratio 1.2 (0.8-1.1) Sodium Level 144 mmol/L (136-145) 141 mmol/L (136-145) Potassium Level 3.7 mmol/L (3.5-5.1) 3.2 mmol/L (3.5-5.1) Chloride Level 106 mmol/L (98-107) 105 mmol/L (98-107) Carbon Dioxide Level 29 mmol/L (21-32) 27 mmol/L (21-32) Anion Gap 9 (6-14) 9 (6-14) Blood Urea Nitrogen 24 mg/dL (8-26) 23 mg/dL (8-26) Creatinine 1.7 mg/dL (0.7-1.3) 1.5 mg/dL (0.7-1.3) Estimated GFR (Cockcroft-Gault) 45.3 52.4 BUN/Creatinine Ratio 14 (6-20) Glucose Level 114 mg/dL (70-99) 133 mg/dL (70-99) Calcium Level 8.3 mg/dL (8.5-10.1) 8.3 mg/dL (8.5-10.1) Total Bilirubin 0.9 mg/dL (0.2-1.0) Aspartate Amino Transf (AST/SGOT) 39 U/L (15-37) Alanine Aminotransferase (ALT/SGPT) 39 U/L (16-63) Alkaline Phosphatase 121 U/L (46-116) Troponin I Quantitative 0.166 ng/mL (0.000-0.055) 0.202 ng/mL (0.000-0.055) 0.153 ng/mL (0.000-0.055) WT-Zym-T-Type Natriuretic Peptide 4547 pg/mL (0-124) Total Protein 6.1 g/dL (6.4-8.2) Albumin 3.0 g/dL (3.4-5.0) Albumin/Globulin Ratio 1.0 (1.0-1.7) Magnesium Level 1.8 mg/dL (1.8-2.4) Thyroid Stimulating Hormone (TSH) 2.820 uIU/mL (0.358-3.74) Laboratory Tests Test 04/30/19 17:35 04/30/19 21:50 05/01/19 00:25 05/01/19 04:45 White Blood Count 9.2 x10^3/uL (4.0-11.0) Red Blood Count 5.21 x10^6/uL (4.30-5.70) Hemoglobin 15.2 g/dL (13.0-17.5) Hematocrit 45.2 % (39.0-53.0) Mean Corpuscular Volume 87 fL (79-100) Mean Corpuscular Hemoglobin 29 pg (25-35) Mean Corpuscular Hemoglobin Concent 34 g/dL (31-37) Red Cell Distribution Width 14.1 % (11.5-14.5) Platelet Count 208 x10^3/uL (140-400) Neutrophils (%) (Auto) 63 % (31-73) Lymphocytes (%) (Auto) 20 % (24-48) Monocytes (%) (Auto) 11 % (0-9) Eosinophils (%) (Auto) 5 % (0-3) Basophils (%) (Auto) 1 % (0-3) Neutrophils # (Auto) 5.7 x10^3/uL (1.8-7.7) Lymphocytes # (Auto) 1.8 x10^3/uL (1.0-4.8) Monocytes # (Auto) 1.0 x10^3/uL (0.0-1.1) Eosinophils # (Auto) 0.4 x10^3/uL (0.0-0.7) Basophils # (Auto) 0.1 x10^3/uL (0.0-0.2) Prothrombin Time 14.5 SEC (11.7-14.0) Prothromb Time International Ratio 1.2 (0.8-1.1) Sodium Level 144 mmol/L (136-145) 141 mmol/L (136-145) Potassium Level 3.7 mmol/L (3.5-5.1) 3.2 mmol/L (3.5-5.1) Chloride Level 106 mmol/L (98-107) 105 mmol/L (98-107) Carbon Dioxide Level 29 mmol/L (21-32) 27 mmol/L (21-32) Anion Gap 9 (6-14) 9 (6-14) Blood Urea Nitrogen 24 mg/dL (8-26) 23 mg/dL (8-26) Creatinine 1.7 mg/dL (0.7-1.3) 1.5 mg/dL (0.7-1.3) Estimated GFR (Cockcroft-Gault) 45.3 52.4 BUN/Creatinine Ratio 14 (6-20) Glucose Level 114 mg/dL (70-99) 133 mg/dL (70-99) Calcium Level 8.3 mg/dL (8.5-10.1) 8.3 mg/dL (8.5-10.1) Total Bilirubin 0.9 mg/dL (0.2-1.0) Aspartate Amino Transf (AST/SGOT) 39 U/L (15-37) Alanine Aminotransferase (ALT/SGPT) 39 U/L (16-63) Alkaline Phosphatase 121 U/L (46-116) Troponin I Quantitative 0.166 ng/mL (0.000-0.055) 0.202 ng/mL (0.000-0.055) 0.153 ng/mL (0.000-0.055) ZE-Orr-U-Type Natriuretic Peptide 4547 pg/mL (0-124) Total Protein 6.1 g/dL (6.4-8.2) Albumin 3.0 g/dL (3.4-5.0) Albumin/Globulin Ratio 1.0 (1.0-1.7) Magnesium Level 1.8 mg/dL (1.8-2.4) Thyroid Stimulating Hormone (TSH) 2.820 uIU/mL (0.358-3.74) VTE Prophylaxis Ordered VTE Prophylaxis Devices: Yes VTE Pharmacological Prophylaxi: Yes Assessment/Plan Assessment/Plan Malignant HTN Mild troponin elevation; peak 0.2. Most probably type II, demand ischemia Acute on chronic systolic HF Cardiomyopathy: likely NICM with chronic uncontrolled HTN and substance abuse. LVEF 06/2018 20%. CKD Substance abuse; h/o meth use Hx of Protein S deficiency Severe pulmonary HTN Tobaccoism Hypokalemia; replaced. PLAN: 2 MN, CVC bed Counseled on his bad lifestyle habits, nicotine patch when necessary, diurese per cards, I have reconciled multiple BP meds at home, , Further recs pending course, overall prognosis guarded in this young gentleman, poor lifestyle and already and an EF of 20% RADHA MARES MD May 01, 2019 12:16
[2019-05-01] MEDS: LISINOPRIL 20 MG TABLET PO SCH (12:43)
[2019-05-01] MEDS: amLODIPine BESYLATE 10 MG TABLET PO SCH (12:43)
[2019-05-01] MEDS: hydrALAZINE 25 MG TABLET PO SCH ×2 (12:43→14:00)
[2019-05-01] MEDS: FUROSEMIDE 40 MG TABLET. PO SCH (12:43)
[2019-05-01] MEDS: CARVEDILOL 12.5 MG TABLET. PO SCH ×2 (12:44→17:44)
[2019-05-01] MEDS: ISOSORBIDE MONONITRATE ER 30 MG TAB.ER.24H PO SCH (12:44)
[2019-05-01 20:51] LABS: BARBITURATES NEG (NEG); BENZODIAZEPINES NEG (NEG); CANNABINOIDS NEG (NEG); COCAINE NEG (NEG); METHADONE NEG (NEG); OPIATES POS (NEG); PHENCYCLIDINE NEG (NEG)
[2019-05-01 20:52] LABS: AMPHETAMINE/METHAMPHETAMINE POS (NEG)
[2019-05-01] MEDS ORDERED: ATORVASTATIN CALCIUM 10 MG TABLET. PO SCH (21:00)
[2019-05-02 03:20] VITALS: BP 124/65
[2019-05-02] MEDS: HYDROcodone/APAP 10/325 1 TAB TABLET PO PRN ×3 (03:37→18:00)
[2019-05-02 05:55] LABS: CALCIUM 7.9 mg/dL (8.5-10.1); CREATININE 1.8 mg/dL (0.7-1.3); GFR 42.4; POTASSIUM 4.1 mmol/L (3.5-5.1)
[2019-05-02 07:43] VITALS: BP 125/66
[2019-05-02] MEDS: LISINOPRIL 20 MG TABLET PO SCH (09:00)
[2019-05-02] MEDS: ISOSORBIDE MONONITRATE ER 30 MG TAB.ER.24H PO SCH (09:00)
[2019-05-02] MEDS: CARVEDILOL 12.5 MG TABLET. PO SCH ×2 (09:11→18:00)
[2019-05-02] MEDS: POTASSIUM CHLORIDE 20 MEQ TABLET.ER. PO SCH (09:12)
[2019-05-02] MEDS: FUROSEMIDE 40 MG TABLET. PO SCH (09:12)
[2019-05-02] MEDS: amLODIPine BESYLATE 10 MG TABLET PO SCH (09:13)
[2019-05-02 10:20] VITALS: BP 126/73
--- NOTE | 2019-05-02 10:42 | PDOC ---
PROGRESS NOTES History of Present Illness History of Present Illness VTE Prophylaxis Ordered VTE Prophylaxis Devices: Yes VTE Pharmacological Prophylaxi: Yes Assessment/Plan Assessment/Plan Malignant HTN Mild troponin elevation; peak 0.2. Most probably type II, demand ischemia Acute on chronic systolic HF Cardiomyopathy: likely NICM with chronic uncontrolled HTN and substance abuse. LVEF 06/2018 20%. CKD Substance abuse; h/o meth use Hx of Protein S deficiency Severe pulmonary HTN Tobaccoism Hypokalemia; replaced. Smoking and meth cessation and discussed adherence to therapy PLAN: 2 MN, CVC bed cardiology consult Counseled on his bad lifestyle habits, nicotine patch when necessary, diurese per cards, reconciled multiple BP meds at home, Further recs pending course, overall prognosis poor/ guarded in this young gentleman, poor lifestyle and already and an EF of 20% 39 MIN PT EXAM, CHART REVIEW, > 50% OF TIME SPENT WITH EXAM, CHART REVIEW, PT CARE COORDINATION Vitals Vitals Vital Signs Date Time Temp Pulse Resp B/P (MAP) Pulse Ox O2 Delivery O2 Flow Rate FiO2 05/02/19 10:20 97.9 79 20 126/73 (90) 98 Room Air 97.9 Physical Exam General: Alert, Oriented X3, Cooperative, No acute distress Heart: Regular rate, Normal S1, Normal S2 Lungs: Clear Abdomen: Normal bowel sounds, Soft, No tenderness Extremities: Normal pulses, Other (1+ bilateral ankle edema) Skin: No significant lesion Labs LABS Laboratory Tests Test 05/01/19 19:30 05/02/19 05:10 Urine Opiates Screen Pos (NEG) Urine Methadone Screen Neg (NEG) Urine Barbiturates Neg (NEG) Urine Phencyclidine Screen Neg (NEG) Urine Amphetamine/Methamphetamine Pos (NEG) Urine Benzodiazepines Screen Neg (NEG) Urine Cocaine Screen Neg (NEG) Urine Cannabinoids Screen Neg (NEG) Urine Ethyl Alcohol Neg (NEG) Sodium Level 143 mmol/L (136-145) Potassium Level 4.1 mmol/L (3.5-5.1) Chloride Level 107 mmol/L (98-107) Carbon Dioxide Level 30 mmol/L (21-32) Anion Gap 6 (6-14) Blood Urea Nitrogen 28 mg/dL (8-26) Creatinine 1.8 mg/dL (0.7-1.3) Estimated GFR (Cockcroft-Gault) 42.4 Glucose Level 106 mg/dL (70-99) Calcium Level 7.9 mg/dL (8.5-10.1) Assessment and Plan Assessmemt and Plan Problems Medical Problems: (1) Acute exacerbation of CHF (congestive heart failure) Status: Acute (2) Dental caries Status: Acute (3) Hypertension Status: Acute Comment Review of Relevant I have reviewed the following items tiffanie (where applicable) has been applied. Labs Laboratory Tests Test 04/30/19 17:35 04/30/19 21:50 05/01/19 00:25 05/01/19 04:45 White Blood Count 9.2 x10^3/uL (4.0-11.0) Red Blood Count 5.21 x10^6/uL (4.30-5.70) Hemoglobin 15.2 g/dL (13.0-17.5) Hematocrit 45.2 % (39.0-53.0) Mean Corpuscular Volume 87 fL (79-100) Mean Corpuscular Hemoglobin 29 pg (25-35) Mean Corpuscular Hemoglobin Concent 34 g/dL (31-37) Red Cell Distribution Width 14.1 % (11.5-14.5) Platelet Count 208 x10^3/uL (140-400) Neutrophils (%) (Auto) 63 % (31-73) Lymphocytes (%) (Auto) 20 % (24-48) Monocytes (%) (Auto) 11 % (0-9) Eosinophils (%) (Auto) 5 % (0-3) Basophils (%) (Auto) 1 % (0-3) Neutrophils # (Auto) 5.7 x10^3/uL (1.8-7.7) Lymphocytes # (Auto) 1.8 x10^3/uL (1.0-4.8) Monocytes # (Auto) 1.0 x10^3/uL (0.0-1.1) Eosinophils # (Auto) 0.4 x10^3/uL (0.0-0.7) Basophils # (Auto) 0.1 x10^3/uL (0.0-0.2) Prothrombin Time 14.5 SEC (11.7-14.0) Prothromb Time International Ratio 1.2 (0.8-1.1) Sodium Level 144 mmol/L (136-145) 141 mmol/L (136-145) Potassium Level 3.7 mmol/L (3.5-5.1) 3.2 mmol/L (3.5-5.1) Chloride Level 106 mmol/L (98-107) 105 mmol/L (98-107) Carbon Dioxide Level 29 mmol/L (21-32) 27 mmol/L (21-32) Anion Gap 9 (6-14) 9 (6-14) Blood Urea Nitrogen 24 mg/dL (8-26) 23 mg/dL (8-26) Creatinine 1.7 mg/dL (0.7-1.3) 1.5 mg/dL (0.7-1.3) Estimated GFR (Cockcroft-Gault) 45.3 52.4 BUN/Creatinine Ratio 14 (6-20) Glucose Level 114 mg/dL (70-99) 133 mg/dL (70-99) Calcium Level 8.3 mg/dL (8.5-10.1) 8.3 mg/dL (8.5-10.1) Total Bilirubin 0.9 mg/dL (0.2-1.0) Aspartate Amino Transf (AST/SGOT) 39 U/L (15-37) Alanine Aminotransferase (ALT/SGPT) 39 U/L (16-63) Alkaline Phosphatase 121 U/L (46-116) Troponin I Quantitative 0.166 ng/mL (0.000-0.055) 0.202 ng/mL (0.000-0.055) 0.153 ng/mL (0.000-0.055) TT-Idi-X-Type Natriuretic Peptide 4547 pg/mL (0-124) Total Protein 6.1 g/dL (6.4-8.2) Albumin 3.0 g/dL (3.4-5.0) Albumin/Globulin Ratio 1.0 (1.0-1.7) Magnesium Level 1.8 mg/dL (1.8-2.4) Thyroid Stimulating Hormone (TSH) 2.820 uIU/mL (0.358-3.74) Test 05/01/19 19:30 05/02/19 05:10 Urine Opiates Screen Pos (NEG) Urine Methadone Screen Neg (NEG) Urine Barbiturates Neg (NEG) Urine Phencyclidine Screen Neg (NEG) Urine Amphetamine/Methamphetamine Pos (NEG) Urine Benzodiazepines Screen Neg (NEG) Urine Cocaine Screen Neg (NEG) Urine Cannabinoids Screen Neg (NEG) Urine Ethyl Alcohol Neg (NEG) Sodium Level 143 mmol/L (136-145) Potassium Level 4.1 mmol/L (3.5-5.1) Chloride Level 107 mmol/L (98-107) Carbon Dioxide Level 30 mmol/L (21-32) Anion Gap 6 (6-14) Blood Urea Nitrogen 28 mg/dL (8-26) Creatinine 1.8 mg/dL (0.7-1.3) Estimated GFR (Cockcroft-Gault) 42.4 Glucose Level 106 mg/dL (70-99) Calcium Level 7.9 mg/dL (8.5-10.1) Laboratory Tests Test 05/01/19 19:30 05/02/19 05:10 Urine Opiates Screen Pos (NEG) Urine Methadone Screen Neg (NEG) Urine Barbiturates Neg (NEG) Urine Phencyclidine Screen Neg (NEG) Urine Amphetamine/Methamphetamine Pos (NEG) Urine Benzodiazepines Screen Neg (NEG) Urine Cocaine Screen Neg (NEG) Urine Cannabinoids Screen Neg (NEG) Urine Ethyl Alcohol Neg (NEG) Sodium Level 143 mmol/L (136-145) Potassium Level 4.1 mmol/L (3.5-5.1) Chloride Level 107 mmol/L (98-107) Carbon Dioxide Level 30 mmol/L (21-32) Anion Gap 6 (6-14) Blood Urea Nitrogen 28 mg/dL (8-26) Creatinine 1.8 mg/dL (0.7-1.3) Estimated GFR (Cockcroft-Gault) 42.4 Glucose Level 106 mg/dL (70-99) Calcium Level 7.9 mg/dL (8.5-10.1) Medications Current Medications Labetalol HCl (Normodyne Iv Push) 20 mg 1X ONCE IVP Last administered on 04/30/19 18:15; Start 04/30/19 at 17:30; Stop 04/30/19 at 17:34; Status DC Furosemide (Lasix) 20 mg 1X ONCE IVP Last administered on 04/30/19at 18:15; Start 04/30/19 at 17:30; Stop 04/30/19 at 17:34; Status DC Aspirin (Children'S Aspirin) 324 mg 1X ONCE PO Last administered on 04/30/19 18:15; Start 04/30/19 at 17:30; Stop 04/30/19 at 17:34; Status DC Nitroglycerin (Nitro-Bid Oint) 1 inch 1X ONCE TP Last administered on 04/30/19at 18:15; Start 04/30/19 at 18:15; Stop 04/30/19 at 18:16; Status DC Amoxicillin/ Clavulanate Potassium (Augmentin 875/ 125mg) 1 tab 1X ONCE PO Last administered on 04/30/19 19:07; Start 04/30/19 at 18:30; Stop 04/30/19 at 18:34; Status DC Acetaminophen/ Hydrocodone Bitart (Lortab 5/325) 1 tab 1X ONCE PO Last administered on 04/30/19 19:07; Start 04/30/19 at 18:30; Stop 04/30/19 at 18:34; Status DC Ondansetron HCl (Zofran) 4 mg PRN Q8HRS PRN IV NAUSEA/VOMITING; Start 04/30/19 at 18:45; Stop 05/01/19 at 08:34; Status DC Acetaminophen/ Hydrocodone Bitart (Lortab 5/325) 1 tab PRN Q4HRS PRN PO MODERATE PAIN 4-6; Start 04/30/19 at 20:45 Atorvastatin Calcium (Lipitor) 10 mg QHS PO Last administered on 05/01/19 20:30; Start 05/01/19 at 21:00 Lisinopril (Prinivil) 40 mg DAILY PO Last administered on 05/01/19 12:46; Start 05/01/19 at 09:00 Carvedilol (Coreg) 25 mg BIDWMEALS PO Last administered on 05/02/19 09:13; Start 05/01/19 at 08:00 Hydralazine HCl (Apresoline Inj) 10 mg PRN Q4HRS PRN IVP ELEVATED BP, 2ND CHOICE Last administered on 05/01/19 08:36; Start 04/30/19 at 23:00 Hydralazine HCl (Apresoline) 25 mg TID PO Last administered on 05/01/19 12:46; Start 05/01/19 at 09:00; Stop 05/01/19 at 16:37; Status DC Isosorbide Mononitrate (Imdur) 30 mg DAILY PO Last administered on 05/01/19at 12:46; Start 05/01/19 at 09:00 Acetaminophen/ Hydrocodone Bitart (Lortab 10/325) 1 tab PRN Q6HRS PRN PO SEVERE PAIN 7-10 Last administered on 05/02/19 09:13; Start 04/30/19 at 23:30 Ondansetron HCl (Zofran) 4 mg PRN Q6HRS PRN IV NAUSEA/VOMITING; Start 05/01/19 at 08:45 Labetalol HCl (Normodyne Iv Push) 20 mg PRN Q2HR PRN IVP HYPERTENSION, 1ST CHOICE; Start 05/01/19 at 08:45 Acetaminophen (Tylenol) 500 mg PRN Q6HRS PRN PO TEMP OR MILD PAIN (1ST CHOICE); Start 05/01/19 at 08:45 Acetaminophen/ Codeine Phosphate (Tylenol #3) 1 tab PRN Q6HRS PRN PO MILD PAIN (2ND CHOICE); Start 05/01/19 at 08:45 Potassium Chloride (Klor-Con) 40 meq 1X ONCE PO Last administered on 05/01/19at 12:46; Start 05/01/19 at 08:45; Stop 05/01/19 at 08:46; Status DC Amlodipine Besylate (Norvasc) 10 mg DAILY PO Last administered on 05/02/19at 09:13; Start 05/01/19 at 12:00 Furosemide (Lasix) 40 mg DAILY PO Last administered on 05/02/19 09:13; Start 05/01/19 at 12:00 Potassium Chloride (Klor-Con) 20 meq DAILYWBKFT PO Last administered on 05/02/19at 09:13; Start 05/01/19 at 12:00 Active Scripts Active Reported Furosemide 40 Mg Tablet 1 Tab PO DAILY Potassium Chloride 20 Meq Tablet.er 20 Meq PO DAILY Lipitor (Atorvastatin Calcium) 10 Mg Tablet 1 Tab PO QHS Norvasc (Amlodipine Besylate) 10 Mg Tablet 10 Mg PO DAILY Lisinopril 40 Mg Tablet 1 Tab PO DAILY Coreg (Carvedilol) 25 Mg Tablet 25 Mg PO BIDWMEALS Vitals/I & O Vital Sign - Last 24 Hours 05/01/19 05/01/19 05/01/19 05/01/19 11:00 12:46 12:46 12:46 Temp 98.0 98.0 Pulse 88 88 88 88 Resp 20 B/P (MAP) 146/88 (107) 146/88 146/88 146/88 Pulse Ox 97 O2 Delivery Room Air 05/01/19 05/01/19 05/01/19 05/01/19 12:46 12:46 12:54 15:00 Temp 97.2 97.2 Pulse 88 88 82 Resp 20 B/P (MAP) 146/88 146/88 130/67 (88) Pulse Ox 97 98 O2 Delivery Room Air Room Air 05/01/19 05/01/19 05/01/19 05/01/19 15:58 17:16 17:45 19:30 Temp 97.9 97.9 Pulse 82 80 Resp 18 B/P (MAP) 130/67 95/45 (62) Pulse Ox 98 98 95 O2 Delivery Room Air Room Air Room Air 05/01/19 05/01/19 05/01/19 05/02/19 20:05 20:31 23:05 03:20 Temp 97.7 97.8 97.7 97.8 Pulse 80 75 Resp 18 18 B/P (MAP) 111/61 (78) 113/58 (76) 124/65 (84) Pulse Ox 97 96 O2 Delivery Room Air Room Air Room Air 05/02/19 05/02/19 05/02/19 05/02/19 03:37 07:43 08:00 09:13 Temp 98.0 98.0 Pulse 83 83 Resp 18 B/P (MAP) 125/66 (85) 125/66 Pulse Ox 98 O2 Delivery Room Air Room Air Room Air 05/02/19 05/02/19 05/02/19 09:13 09:13 10:20 Temp 97.9 97.9 Pulse 83 79 Resp 20 B/P (MAP) 125/66 126/73 (90) Pulse Ox 98 98 O2 Delivery Room Air Room Air Intake and Output 05/01/19 05/01/19 05/02/19 15:00 23:00 07:00 Intake Total 800 ml Output Total 900 ml 500 ml Balance -900 ml 300 ml YOU MYERS MD May 02, 2019 10:42
--- NOTE | 2019-05-02 11:18 | PDOC ---
CARDIO Progress Notes Date and Time Date of Service 05/02/2019 Time of Evaluation 1100 Vitals Vitals Vital Signs Date Time Temp Pulse Resp B/P (MAP) Pulse Ox O2 Delivery O2 Flow Rate FiO2 05/02/19 10:20 97.9 79 20 126/73 (90) 98 Room Air 97.9 Weight Weight [ ] Input and Output Intake and Output Intake and Output 05/02/19 07:00 Intake Total 800 ml Output Total 1400 ml Balance -600 ml Intake Oral 800 ml Output Urine Total 1400 ml Laboratory Labs Laboratory Tests Test 05/01/19 19:30 05/02/19 05:10 Urine Opiates Screen Pos (NEG) Urine Methadone Screen Neg (NEG) Urine Barbiturates Neg (NEG) Urine Phencyclidine Screen Neg (NEG) Urine Amphetamine/Methamphetamine Pos (NEG) Urine Benzodiazepines Screen Neg (NEG) Urine Cocaine Screen Neg (NEG) Urine Cannabinoids Screen Neg (NEG) Urine Ethyl Alcohol Neg (NEG) Sodium Level 143 mmol/L (136-145) Potassium Level 4.1 mmol/L (3.5-5.1) Chloride Level 107 mmol/L (98-107) Carbon Dioxide Level 30 mmol/L (21-32) Anion Gap 6 (6-14) Blood Urea Nitrogen 28 mg/dL (8-26) Creatinine 1.8 mg/dL (0.7-1.3) Estimated GFR (Cockcroft-Gault) 42.4 Glucose Level 106 mg/dL (70-99) Calcium Level 7.9 mg/dL (8.5-10.1) Physical Exam HEENT: Neck Supple W Full Motion Chest: Symmetric LUNGS: Other (diminisehd bases) Heart: S1S2, RRR (Sr) Extremities: No Calf Tenderness, Other (1+ bilateral LE pitting edema) Neurology: alert, oriented, follow commands Assessment Assessment 1. Malignant HTN; secondary to med noncompliance. well controlled 2. Mild troponin elevation; peak 0.2. Most probably type II, demand ischemia secondary to above 3. Acute on chronic systolic CHF; compensated 4. Cardiomyopathy: likely NICM with chronic uncontrolled HTN and substance abuse. LVEF 06/2018 20%. 5. CKD3 6. Substance abuse; methamphetamine use 7. Hx of Protein S deficiency 8. Severe pulmonary HTN 9. Tobaccoism 10. Hypokalemia; replaced. 11. Noncompliance Recommendations 1. Continue PO lasix therapy 2. Awaiting TTE result 3. Continue present BP regimen. DC imdur and will decrease lisinopril 4. Smoking and meth cessation and discussed adherence to therapy 4. SS for outreach referral clinic and follow up on disability. Possible DC today. REAGAN JOYNER APRN May 02, 2019 11:18
[2019-05-02] MEDS ORDERED: LISINOPRIL 20 MG TABLET PO SCH (11:30)
[2019-05-02] MEDS ORDERED: ASPIRIN ENTERIC COATED 81 MG TABLET.DR. PO SCH (12:00)
[2019-05-02 14:20] VITALS: BP 131/69
[2019-05-02 18:00] VITALS: BP 131/69
[2019-05-02] MEDS ORDERED: ASPI-630 PO (19:24)
[2019-05-02] MEDS ORDERED: LISI-334 PO (19:24)
--- NOTE | 2019-05-02 19:56 | NUR ---
Patient D/C to home. Mother at bedside for ride home. Patient IV d/c without complication. Patient a/o x 3. Ambulate with steady gait. VSS. Reviewed d/c orders to include meds and follow up appointment. Patient and mother verbalized understanding. Prescriptions called into [facility] on [address]. Patient ambulate to exit with mother and PA[employer]ER at his side.
--- NOTE | 2019-05-03 09:10 | PDOC3 ---
Discharge Summary Date of Admission: Apr 30, 2019 Date of Discharge: May 03, 2019 Follow-Up: 3-5 days Admitting Diagnosis comment: discharge dx Assessment/Plan Malignant HTN Mild troponin elevation; peak 0.2. Most probably type II, demand ischemia Acute on chronic systolic HF Cardiomyopathy: likely NICM with chronic uncontrolled HTN and substance abuse. LVEF 06/2018 20%. CKD Substance abuse; h/o meth use Hx of Protein S deficiency Severe pulmonary HTN Tobaccoism Hypokalemia; replaced. Smoking and meth cessation and discussed adherence to therapy PLAN: 2 MN, CVC bed cardiology consult Counseled on his bad lifestyle habits, nicotine patch when necessary, diurese per cards, reconciled multiple BP meds at home, Further recs pending course, overall prognosis poor/ guarded in this young gentleman, poor lifestyle and already and an EF of 20% 39 MIN PT EXAM, CHART REVIEW d/c planning , > 50% OF TIME SPENT WITH EXAM, CHART REVIEW, PT CARE COORDINATION Vitals Vitals Vital Signs Date Time Temp Pulse Resp B/P (MAP) Pulse Ox O2 Delivery O2 Flow Rate FiO2 05/02/19 10:20 97.9 79 20 126/73 (90) 98 Room Air 97.9 Physical Exam General: Alert, Oriented X3, Cooperative, No acute distress Heart: Regular rate, Normal S1, Normal S2 Lungs: Clear Abdomen: Normal bowel sounds, Soft, No tenderness Extremities: Normal pulses, Other (1+ bilateral ankle edema) Skin: No significant lesion FINAL DIAGNOSIS Problems Medical Problems: (1) Acute exacerbation of CHF (congestive heart failure) Status: Acute (2) Dental caries Status: Acute (3) Hypertension Status: Acute Brief Hospital Course Mr. Ozuna is a 38 old [sex] who presented with [hypertension, malignant ] CONDITION AT DISCHARGE: Improved Discharge Medications Current Medications Labetalol HCl (Normodyne Iv Push) 20 mg 1X ONCE IVP Last administered on 04/30/19at 18:15; Start 04/30/19 at 17:30; Stop 04/30/19 at 17:34; Status DC Furosemide (Lasix) 20 mg 1X ONCE IVP Last administered on 04/30/19at 18:15; Start 04/30/19 at 17:30; Stop 04/30/19 at 17:34; Status DC Aspirin (Children'S Aspirin) 324 mg 1X ONCE PO Last administered on 04/30/19at 18:15; Start 04/30/19 at 17:30; Stop 04/30/19 at 17:34; Status DC Nitroglycerin (Nitro-Bid Oint) 1 inch 1X ONCE TP Last administered on 04/30/19at 18:15; Start 04/30/19 at 18:15; Stop 04/30/19 at 18:16; Status DC Amoxicillin/ Clavulanate Potassium (Augmentin 875/ 125mg) 1 tab 1X ONCE PO Last administered on 04/30/19at 19:07; Start 04/30/19 at 18:30; Stop 04/30/19 at 18:34; Status DC Acetaminophen/ Hydrocodone Bitart (Lortab 5/325) 1 tab 1X ONCE PO Last administered on 04/30/19at 19:07; Start 04/30/19 at 18:30; Stop 04/30/19 at 18:34; Status DC Ondansetron HCl (Zofran) 4 mg PRN Q8HRS PRN IV NAUSEA/VOMITING; Start 04/30/19 at 18:45; Stop 05/01/19 at 08:34; Status DC Acetaminophen/ Hydrocodone Bitart (Lortab 5/325) 1 tab PRN Q4HRS PRN PO MODERATE PAIN 4-6; Start 04/30/19 at 20:45; Stop 05/02/19 at 20:01; Status DC Atorvastatin Calcium (Lipitor) 10 mg QHS PO Last administered on 05/01/19at 20:30; Start 05/01/19 at 21:00; Stop 05/02/19 at 20:01; Status DC Lisinopril (Prinivil) 40 mg DAILY PO Last administered on 05/01/19at 12:46; Start 05/01/19 at 09:00; Stop 05/02/19 at 11:17; Status DC Carvedilol (Coreg) 25 mg BIDWMEALS PO Last administered on 05/02/19at 18:00; Start 05/01/19 at 08:00; Stop 05/02/19 at 20:01; Status DC Hydralazine HCl (Apresoline Inj) 10 mg PRN Q4HRS PRN IVP ELEVATED BP, 2ND CHOICE Last administered on 05/01/19at 08:36; Start 04/30/19 at 23:00; Stop 05/02/19 at 20:01; Status DC Hydralazine HCl (Apresoline) 25 mg TID PO Last administered on 05/01/19at 12:46; Start 05/01/19 at 09:00; Stop 05/01/19 at 16:37; Status DC Isosorbide Mononitrate (Imdur) 30 mg DAILY PO Last administered on 05/01/19at 12:46; Start 05/01/19 at 09:00; Stop 05/02/19 at 11:17; Status DC Acetaminophen/ Hydrocodone Bitart (Lortab 10/325) 1 tab PRN Q6HRS PRN PO SEVERE PAIN 7-10 Last administered on 05/02/19at 18:00; Start 04/30/19 at 23:30; Stop 05/02/19 at 20:01; Status DC Ondansetron HCl (Zofran) 4 mg PRN Q6HRS PRN IV NAUSEA/VOMITING; Start 05/01/19 at 08:45; Stop 05/02/19 at 20:01; Status DC Labetalol HCl (Normodyne Iv Push) 20 mg PRN Q2HR PRN IVP HYPERTENSION, 1ST CHOICE; Start 05/01/19 at 08:45; Stop 05/02/19 at 20:01; Status DC Acetaminophen (Tylenol) 500 mg PRN Q6HRS PRN PO TEMP OR MILD PAIN (1ST CHOICE); Start 05/01/19 at 08:45; Stop 05/02/19 at 20:01; Status DC Acetaminophen/ Codeine Phosphate (Tylenol #3) 1 tab PRN Q6HRS PRN PO MILD PAIN (2ND CHOICE); Start 05/01/19 at 08:45; Stop 05/02/19 at 20:01; Status DC Potassium Chloride (Klor-Con) 40 meq 1X ONCE PO Last administered on 05/01/19at 12:46; Start 05/01/19 at 08:45; Stop 05/01/19 at 08:46; Status DC Amlodipine Besylate (Norvasc) 10 mg DAILY PO Last administered on 05/02/19at 09:13; Start 05/01/19 at 12:00; Stop 05/02/19 at 20:01; Status DC Furosemide (Lasix) 40 mg DAILY PO Last administered on 05/02/19at 09:13; Start 05/01/19 at 12:00; Stop 05/02/19 at 20:01; Status DC Potassium Chloride (Klor-Con) 20 meq DAILYWBKFT PO Last administered on 05/02/19at 09:13; Start 05/01/19 at 12:00; Stop 05/02/19 at 20:01; Status DC Lisinopril (Prinivil) 20 mg DAILY PO Last administered on 05/02/19at 13:04; Start 05/02/19 at 11:30; Stop 05/02/19 at 20:01; Status DC Aspirin (Ecotrin) 81 mg DAILYWBKFT PO Last administered on 05/02/19at 13:04; Start 05/02/19 at 12:00; Stop 05/02/19 at 20:01; Status DC Active Scripts Active Reported Lisinopril 20 Mg Tablet 1 Tab PO DAILY Aspirin 81 Mg Tab.chew 1 Tab PO DAILY Furosemide 40 Mg Tablet 1 Tab PO DAILY Potassium Chloride 20 Meq Tablet.er 20 Meq PO DAILY Lipitor (Atorvastatin Calcium) 10 Mg Tablet 1 Tab PO QHS Norvasc (Amlodipine Besylate) 10 Mg Tablet 10 Mg PO DAILY Coreg (Carvedilol) 25 Mg Tablet 25 Mg PO BIDWMEALS Vital Signs Vital Signs Date Time Temp Pulse Resp B/P (MAP) Pulse Ox O2 Delivery O2 Flow Rate FiO2 05/02/19 18:00 97 Room Air 05/02/19 18:00 85 131/69 05/02/19 14:20 97.7 18 97.7 Labs Laboratory Tests Test 05/01/19 19:30 05/02/19 05:10 Urine Opiates Screen Pos (NEG) Urine Methadone Screen Neg (NEG) Urine Barbiturates Neg (NEG) Urine Phencyclidine Screen Neg (NEG) Urine Amphetamine/Methamphetamine Pos (NEG) Urine Benzodiazepines Screen Neg (NEG) Urine Cocaine Screen Neg (NEG) Urine Cannabinoids Screen Neg (NEG) Urine Ethyl Alcohol Neg (NEG) Sodium Level 143 mmol/L (136-145) Potassium Level 4.1 mmol/L (3.5-5.1) Chloride Level 107 mmol/L (98-107) Carbon Dioxide Level 30 mmol/L (21-32) Anion Gap 6 (6-14) Blood Urea Nitrogen 28 mg/dL (8-26) Creatinine 1.8 mg/dL (0.7-1.3) Estimated GFR (Cockcroft-Gault) 42.4 Glucose Level 106 mg/dL (70-99) Calcium Level 7.9 mg/dL (8.5-10.1) Allergies Allergies Coded Allergies Type Severity Reaction Last Updated Verified No Known Drug Allergies 03/28/16 No Disposition/Orders: D/C to Home Patient Instructions d/c planning 37 min YOU MYERS MD May 03, 2019 09:10
--- NOTE | 2019-05-03 09:11 | DISCH ---
DISCHARGE INSTRUCTIONS Condition on Discharge Condition on Discharge: Guarded Activity After Discharge Activity Instructions for Disc: No restrictions, Activity as tolerated, Avoid exertion Lifting Instructions after Dis: No heavy lifting, No pulling or pushing Driving Instructions after Dis: Do not drive Weight Bearing Status after Di: No restrictions Diet after Discharge Diet after Discharge: Cardiac, Low Sodium 2 gm Liquid Texture: Thin Liquid Checks after Discharge Checks after discharge: Check blood press - daily, Weigh Yourself Daily Contacting the DR. after DC Call your doctor for: If your condition worsens Follow-Up Follow Up With: Cardiology in 1 month and as needed; [phone] Warfarin Follow-Up Warfarin Follow UP: no illicit drug use YOU MYERS MD May 03, 2019 09:11
--- NOTE | 2019-05-03 13:07 | CARD ---
MR#: [id number] Date of Study: 05/01/2019 Ordering Physician: MICHELLE HORNER, Referring Physician: MICHELLE HORNER, Tech: Maritza Vegas RDCS APPROVED REPORT EXAM: Two-dimensional and M-mode echocardiogram with Doppler and color Doppler. Other Information Quality : GoodHR: 85bpm Rhythm : NSR INDICATION Congestive Heart Failure 2D DIMENSIONS RVDd4.1 (2.9-3.5cm)Left Atrium(2D)4.5 (1.6-4.0cm) IVSd1.1 (0.7-1.1cm)Aortic Root(2D)3.4 (2.0-3.7cm) LVDd4.9 (3.9-5.9cm)LVOT Diameter2.4 (1.8-2.4cm) PWd1.4 (0.7-1.1cm)LVDs4.3 (2.5-4.0cm) FS (%) 12.8 %SV31.2 ml M-Mode DIMENSIONS RVDd4.35 (2.1-3.2cm)Left Atrium(MM)4.21 (2.5-4.0cm) IVSd1.19 (0.7-1.1cm)Aortic Root3.52 (2.2-3.7cm) LVDd4.54 (4.0-5.6cm)PWd1.50 (0.7-1.1cm) IVSs1.27 cmFS (%) 12 % LVDs4.00 (2.0-3.8cm)ESV(Teich)70.1 ml PWs1.69 cmLVEF(%)26 (>50%) Aortic Valve AoV Peak Tang.102.5cm/sAoV VTI14.6cm AO Peak GR.4.2mmHgLVOT Peak Tang.68.7cm/s AO Mean GR.2mmHgAVA (VMAX)3.09cm2 GIANNA (VTI)3.00cm2 Mitral Valve MV E Btomtnxx71.6cm/sMV DECEL DDVX464by MV A Fzzapwcy08.3cm/sE/A Ratio0.8 Pulmonary Valve PV Peak Edctguur656.6cm/s Tricuspid Valve TR P. Avdwvilu477xs/sRAP TUWBHEXT49emUv TR Peak Gr.55xjGqXELA11foBa LEFT VENTRICLE The Left Ventricle is borderline dilated. There is mild concentric left ventricular hypertrophy. The systolic function is moderately impaired. The Ejection Fraction is 30-35%. There is global hypokinesi s of the left ventricle. Transmitral Doppler flow pattern is Grade I-abnormal relaxation pattern. RIGHT VENTRICLE The right ventricle is mildly dilated. There is normal right ventricular wall thickness. Systolic fun ction is mildly reduced. ATRIA The left atrium is mildly dilated. The right atrium is moderately dilated. The interatrial septum is intact with no evidence for an atrial septal defect or patent foramen ovale as noted on 2-D or Dopple r imaging. AORTIC VALVE The aortic valve is normal in structure and function. The aortic valve is trileaflet. Doppler and Col or Flow revealed no significant aortic regurgitation. There is no significant aortic valvular stenosi s. There is no aortic valvular vegetation. MITRAL VALVE The mitral valve is normal in structure and function. There is no evidence of mitral valve prolapse. There is no mitral valve stenosis. Doppler and Color-flow revealed trace mitral regurgitation. TRICUSPID VALVE The tricuspid valve is normal in structure and function. Doppler and Color Flow revealed mild tricusp id regurgitation. The PA pressure was estimated at 50 mmHg. There is no tricuspid valve prolapse or v egetation. There is no tricuspid valve stenosis. PULMONIC VALVE The pulmonary valve is normal in structure and function. Doppler and Color Flow revealed no pulmonic valvular regurgitation. There is no pulmonic valvular stenosis. GREAT VESSELS The aortic root is normal in size. The ascending aorta is normal in size. The IVC is dilated and farzad apses <50% with inspiration. PERICARDIAL EFFUSION There is no evidence of significant pericardial effusion. Critical Notification Critical Value: No <Conclusion> The Left Ventricle is borderline dilated. The systolic function is moderately impaired. The Ejection Fraction is 30-35%. There is global hypokinesis of the left ventricle. There is mild concentric left ventricular hypertrophy. There is no significant aortic valvular stenosis. Doppler and Color Flow revealed no significant aortic regurgitation. Doppler and Color-flow revealed trace mitral regurgitation. Doppler and Color Flow revealed mild tricuspid regurgitation. The PA pressure was estimated at 50 mmHg. Signed by : Daniel Mendez MD Electronically Approved : 05/01/2019 16:21:13
== END 2019-05-02 19:40 | disposition home or self-care (01) | DRG 292 ==
LOC: ER 16:37 → ED HOLD 19:50 → 2 NORTH 20:41
PROVIDERS: ADMIT Internal Medicine; ATTEND Internal Medicine
DX: I11.0 Hypertensive heart disease with heart failure (principal); D68.59 Other primary thrombophilia; I24.8 Other forms of acute ischemic heart disease; I50.23 Acute on chronic systolic (congestive) heart failure; I42.9 Cardiomyopathy, unspecified; E87.6 Hypokalemia; F15.10 Other stimulant abuse, uncomplicated; F17.210 Nicotine dependence, cigarettes, uncomplicated; I27.20 Pulmonary hypertension, unspecified; J44.9 Chronic obstructive pulmonary disease, unspecified; N18.3 Chronic kidney disease, stage 3 (moderate); Z82.49 Family history of ischemic heart disease and other diseases of the circulatory system; Z91.19 Patient's noncompliance with other medical treatment and regimen; T50.995A Adverse effect of other drugs, medicaments and biological substances, initial encounter; Y92.89 Other specified places as the place of occurrence of the external cause; Z71.6 Tobacco abuse counseling
CPT/HCPCS: 36415; 71045; 80048; 80053; 80307; 83735; 83880; 84443; 84484; 85025; 85610; 93005; 93306; J0360; J1940; J3490; 99285-25; G0378

== ENCOUNTER 2021-02-19 19:46 | Emergency (ER) | payer SELFPAY ==
[2020-12-27 11:51] VITALS: BP 147/109
[~2021-02-19 19:46] MED LIST changes: +ASPI-630 PO; -CLIN300C8 PO; +CLIN300C9 PO; +COLC0.6T34 PO; +LISI20TA18 PO; +POTA20TA4 PO; -POTA20TA82 PO; +PRED20TA PO; +SACU1TAB7 PO
== END 2021-02-19 20:01 | disposition left against medical advice (07) ==
LOC: ER 19:46
DX: R11.2 Nausea with vomiting, unspecified (principal); R10.11 Right upper quadrant pain; Z53.21 Procedure and treatment not carried out due to patient leaving prior to being seen by health care provider

== ENCOUNTER → 2021-05-29 | Outpatient (CLI) | payer MEDICAID ==
[2021-02-24 15:00] VITALS: BP 128/94
[~2021-05-29] MED LIST changes: +AMOX1TAB61 PO; +APIX5TAB PO; +ASPI325T8 PO; +CLIN-94 PO; -CLIN300C9 PO; +DILT240C33 PO; +FURO-69 PO; +HEPARIN for ARTERIAL LINE 0 ML ONE; +IODIXANOL 320 MG/ML 100 ML VIAL. ONE; +LIDOCAINE 1% PF 2 ML VIAL. ONE; +METO-247 PO; +PANT40TA77 PO
[2021-05-29 07:31] LABS: HEMATOCRIT 48.6 % (39.0-53.0); HEMOGLOBIN 16.1 g/dL (13.0-17.5); RED BLOOD COUNT 5.64 x10^6/uL (4.30-5.70); RED CELL DISTRIBUTION WIDTH 18.9 % (11.5-14.5); WHITE BLOOD COUNT 7.2 x10^3/uL (4.0-11.0)
[2021-05-29 07:40] LABS: PROTHROMBIN TIME PATIENT 13.8 SEC (11.7-14.0)
[2021-05-29 07:47] LABS: CALCIUM 8.7 mg/dL (8.5-10.1); CREATININE 1.7 mg/dL (0.7-1.3); GFR 44.6; POTASSIUM 3.7 mmol/L (3.5-5.1)
== END | disposition home or self-care (01) ==
LOC: CCL 06:56
PROVIDERS: ATTEND Internal Medicine Cardiovascular Disease
DX: I11.0 Hypertensive heart disease with heart failure (principal); I50.9 Heart failure, unspecified; I42.9 Cardiomyopathy, unspecified; E78.00 Pure hypercholesterolemia, unspecified; K21.9 Gastro-esophageal reflux disease without esophagitis; M10.9 Gout, unspecified; F17.210 Nicotine dependence, cigarettes, uncomplicated; Z79.82 Long term (current) use of aspirin; Z79.899 Other long term (current) drug therapy; Z98.890 Other specified postprocedural states; Z20.822 Contact with and (suspected) exposure to COVID-19
CPT/HCPCS: 36415; 80048; 85027; 85610; 87426

== ENCOUNTER 2021-06-29 07:07 | Outpatient (CLI) | payer MEDICAID ==
[~2021-06-29] VITALS: Ht 190.5 cm; Wt 122.0 kg
[2021-06-29] VITALS (14 sets, daily range): BP systolic 150–230; BP diastolic 82–164
[~2021-06-29 07:07] MED LIST changes: -HEPARIN for ARTERIAL LINE 0 ML ONE; -IODIXANOL 320 MG/ML 100 ML VIAL. ONE; -LIDOCAINE 1% PF 2 ML VIAL. ONE
[2021-06-29] MEDS ORDERED: LIDOCAINE 1% PF 2 ML VIAL. ONE (07:49)
[2021-06-29] MEDS ORDERED: IODIXANOL 320 MG/ML 100 ML VIAL. ONE (07:49)
[2021-06-29] MEDS ORDERED: KETOROLAC 15 MG/ML VIAL. IVP ONE (08:00)
--- NOTE | 2021-06-29 08:00 | NUR ---
RN notified Dr. Muhammad of patient's "gall bladder flare up" and pain 06/07. States he recently saw GI doctor and "needs to have gall bladder removed". States he doesn't know if he can lay flat for procedure. Order received from Dr. Muhammad for 15mg Toradol. Patient able to fall asleep after administering. BP 230/165. MD aware.
[2021-06-29 08:09] LABS: HEMATOCRIT 48.9 % (39.0-53.0); RED BLOOD COUNT 5.52 x10^6/uL (4.30-5.70); RED CELL DISTRIBUTION WIDTH 17.6 % (11.5-14.5); WHITE BLOOD COUNT 10.1 x10^3/uL (4.0-11.0)
[2021-06-29] MEDS ORDERED: HEPARIN for IV BOLUS 10,000 UNIT/10 ML VIAL. ONE (08:12)
[2021-06-29] MEDS ORDERED: NITROGLYCERIN 200 MCG/2 ML SYRINGE FOR CATH/VASC LAB. ONE ×2 (08:12→08:53)
[2021-06-29] MEDS ORDERED: VERAPAMIL 5 MG/2 ML VIAL. ONE (08:12)
[2021-06-29] MEDS ORDERED: fentaNYL PF VIAL 100 MCG/2 ML VIAL ONE (08:12)
[2021-06-29] MEDS ORDERED: MIDAZOLAM HCL/PF 5 MG/5 ML VIAL. ONE (08:12)
[2021-06-29 08:21] LABS: CALCIUM 8.6 mg/dL (8.5-10.1); CREATININE 1.7 mg/dL (0.7-1.3); GFR 44.6
[2021-06-29] MEDS ORDERED: hydrALAZINE 20 MG/ML VIAL. ONE (08:47)
[2021-06-29] MEDS ORDERED: LIDOCAINE 1% PF 2 ML VIAL. INJ ONE (09:00)
[2021-06-29] MEDS ORDERED: HEPARIN for IV BOLUS 10,000 UNIT/10 ML VIAL. IART ONE (09:00)
[2021-06-29] MEDS ORDERED: fentaNYL PF VIAL 100 MCG/2 ML VIAL IV ONE (09:00)
[2021-06-29] MEDS ORDERED: hydrALAZINE 20 MG/ML VIAL. IVP ONE ×2 (09:00→09:30)
[2021-06-29] MEDS ORDERED: IODIXANOL 320 MG/ML 100 ML VIAL. IART ONE (09:00)
[2021-06-29] MEDS ORDERED: VERAPAMIL 5 MG/2 ML VIAL. IART ONE (09:00)
[2021-06-29] MEDS ORDERED: NITROGLYCERIN 200 MCG/2 ML SYRINGE FOR CATH/VASC LAB. IART ONE (09:00)
[2021-06-29] MEDS ORDERED: MIDAZOLAM HCL/PF 5 MG/5 ML VIAL. IV ONE (09:00)
--- NOTE | 2021-06-29 09:10 | PDOC ---
MODERATE SEDATION ASSESSMENT RISKS/ALTERNATIVES Risks/Alternatives Risks and alternatives of this type of sedation and procedure discussed with: RISK/ALTERNATIVES: Patient H & P ON CHART H & P H & P on chart and reviewed for co-morbid conditions and appropriate labs. H&P ON CHART: Yes STATUS PREG STATUS ASSESSED: N/A MEDS/ALLERGIES REVIEWED Meds/Allergies Reviewed Medications and Allergies including time and route of recently administered narcotics and sedatives. MEDS/ALLERGIES REVIEWED: Yes ASA RATING ASA RATING: III AIRWAY ASSESSMENT Airway Assessment Airway patency, oral function limitations, presence of caps, crowns, dentures, partials, and ability to extend neck assessed. AIRWAY ASSESSMENT: Yes MALLAMPATI SCORE MALLAMPATI SCORE: II PRE-SEDATION ASSESSMENT PRE-SEDATION ASSESSMENT: Yes JEFFERY LÓPEZ MD Jun 29, 2021 09:10
[2021-06-29] MEDS ORDERED: NITROGLYCERIN SUBLINGUAL 0.4 MG BOTTLE OF 25. SL PRN (09:15)
--- NOTE | 2021-06-29 09:31 | CARD ---
MR#: [id number] Date of Study: 06/29/2021 Ordering Physician: JEFFERY MUHAMMAD, Referring Physician: JEFFERY MUHAMMAD, Tech: RT Halina(R) APPROVED REPORT Technologist: RT Halina(R) Nurse: Adali Parsons RN Procedure(s) performed: Left heart catheterization, selective coronary angiography via right transrad ial approach fl time: 6.2 mins dose: 65 gycm2 contrast: 96 ml moderate sedation: 37 mins INDICATION The indication(s) include : Cardiomyopathy with left ventricular ejection fraction 10 to 15%. [facility] Clinical Frailty Scale [facility] Clinical Frailty Scale: Mildly Frail Heart Failure Heart Failure: Yes If Yes, Newly Diagnosed: No If Yes, HF Type: Systolic If Yes, NYHA Class: Class II CASE TECHNIQUE IV conscious sedation was used throughout procedure with appropriate monitoring and was performed in the presence of a registered nurse who was an independent trained observer other than the physician p erforming the procedure. During this case, Fluoroscopy and low osmolar contrast were used for imaging . Specimen(s) Removed: No Estimated Blood loss: 15 cc's. PROCEDURE NARRATIVE After explaining the risks, benefits and alternative options, informed consent was obtained from luis ent. Patient was brought to the cardiac Nuclear Operator and right wrist was prepped and draped in the usual fashion after confirming a positive modified Nakul's test. Arterial access was obtained in the righ t radial artery and a 6 [place] sheath was inserted. 6 [place] Krishna and 5 [place] JL 3.5 catheters we re used to perform selective angiography of the right and left coronary LVEDP and transaortic gradien ts were measured. Patient tolerated the procedure well. Hemostasis was achieved using TR band. The re were no immediate complications. The following findings were noted. FINDINGS 1. Hemodynamics: Elevated left ventricular end-diastolic pressure of 38 mmHg consistent with acute o n chronic systolic heart failure. No pullback gradient across the aortic valve. 2. Coronary angiography: a. The left main coronary artery arose from the left sinus of Valsalva, gave rise to the left anteri or descending and left circumflex arteries and did not show any significant stenosis. b. The left anterior descending artery did not show any significant stenosis. c. The left circumflex artery did not show any significant stenosis. d. The right coronary artery was a large and dominant vessel arising from the right sinus of Valsalv a that did not show any significant stenosis. Conclusion No significant coronary artery disease Recommendations Optimize medical therapy for nonischemic cardiomyopathy and repeat 2D echo in 3 months to evaluate th e need for AICD implantation. Signed by : Jeffery Muhammad, Electronically Approved : 06/29/2021 09:31:03
[2021-06-29] MEDS ORDERED: CARV6.2511 PO (11:13)
[2021-06-29] MEDS ORDERED: CARVEDILOL 6.25 MG TABLET. PO ONE (11:30)
--- NOTE | 2021-06-29 12:08 | NUR ---
Patient's PIV removed, dressing changed at access site. No bleeding. Instructions provided on site care, sedation. RN verbalized importance of not using right arm/wrist. Patient and mother verbalized understanding. RN instructed patient to take medications as prescribed-- has not been taking Entresto or Carvedilol on regular basis. BP improved w/ Hydralazine and Carvedilol PO-- patient does not remember exact dose. Patient states he has not filled prescriptions recently, but will on his way home. All belongings taken w/ patient at time of d/c. No questions at time of d/c.
== END 2021-06-29 12:12 | disposition home or self-care (01) ==
LOC: CCL 07:07
PROVIDERS: ATTEND Internal Medicine Cardiovascular Disease
DX: I42.8 Other cardiomyopathies (principal); E78.00 Pure hypercholesterolemia, unspecified; K21.9 Gastro-esophageal reflux disease without esophagitis; M10.9 Gout, unspecified; I11.0 Hypertensive heart disease with heart failure; I50.9 Heart failure, unspecified; F17.210 Nicotine dependence, cigarettes, uncomplicated; Z79.899 Other long term (current) drug therapy; Z98.890 Other specified postprocedural states
CPT/HCPCS: 36415; 80048; 85027; 85610; 93458; 99152; 99153; C1769; C1894; J0360; J1644; J1885; J2250; J3010; J3490; Q9967

== ENCOUNTER 2021-07-23 23:26 | Inpatient (IN) | payer MEDICAID ==
[~2021-07-23] VITALS: Ht 190.5 cm; Wt 122.1 kg
[~2021-07-23 23:26] MED LIST changes: +CARV6.2511 PO
[2021-07-23 23:42] VITALS: BP 169/114
--- NOTE | 2021-07-23 23:54 | NUR ---
Pt arrived to unit per edith accompanied by MECCA, pt assisted to bed with standby assist monitor car operator applied to pt vs obtained pt blood pressure elevated 169/114.pt c/o pain to lower extremities. Assessment completed poc explained call light placed in reach call placed to for admission orders. Will resume care and continue to monitor pt.
[2021-07-24] VITALS (10 sets, daily range): BP systolic 130–180; BP diastolic 90–116
[2021-07-24] MEDS ORDERED: SUCR1TAB35 PO (00:15)
[2021-07-24] MEDS ORDERED: ACET325T9 PO (00:15)
[2021-07-24] MEDS ORDERED: METO50TA6 PO (00:15)
[2021-07-24] MEDS ORDERED: ACETAMINOPHEN 325 MG TABLET. PO PRN (00:45)
[2021-07-24] MEDS ORDERED: METOPROLOL TART IMMED RELEASE 50 MG TABLET. PO ONE (00:45)
[2021-07-24] MEDS: hydrALAZINE 20 MG/ML VIAL. IVP PRN (00:55)
[2021-07-24 04:31] LABS: HEMATOCRIT 48.9 % (39.0-53.0); HEMOGLOBIN 15.8 g/dL (13.0-17.5); WHITE BLOOD COUNT 9.5 x10^3/uL (4.0-11.0)
[2021-07-24 05:10] LABS: ALBUMIN 2.8 g/dL (3.4-5.0); ALBUMIN/GLOBULIN RATIO 0.9 (1.0-1.7); CALCIUM 8.1 mg/dL (8.5-10.1); CREATININE 1.4 mg/dL (0.7-1.3); GFR 55.8; POTASSIUM 3.6 mmol/L (3.5-5.1); TOTAL BILIRUBIN 0.7 mg/dL (0.2-1.0); TOTAL PROTEIN 5.8 g/dL (6.4-8.2)
[2021-07-24] MEDS: SUCRALFATE 1 GM TABLET. PO SCH ×2 (06:01→16:12)
[2021-07-24] MEDS: PANTOPRAZOLE 40 MG TABLET.DR. PO SCH (06:01)
[2021-07-24] MEDS: COLCHICINE 0.6 MG TABLET PO PRN (08:32)
[2021-07-24] MEDS: APIXABAN 5 MG TABLET. PO SCH ×2 (08:33→21:24)
[2021-07-24] MEDS: SACUBITRIL/VALSARTAN 49/51MG TABLET. PO SCH ×2 (08:33→21:23)
[2021-07-24] MEDS ORDERED: METOPROLOL TART IMMED RELEASE 50 MG TABLET. PO SCH (09:00)
[2021-07-24] MEDS ORDERED: CALCIUM CARBONATE 500 MG TAB.CHEW PO PRN (10:15)
[2021-07-24] MEDS ORDERED: ZOLPIDEM 5 MG TABLET. PO PRN (10:15)
[2021-07-24] MEDS ORDERED: ELECTROLYTE (NON-ICU) PROTOCOL. MC PRN (10:15)
[2021-07-24] MEDS ORDERED: ONDANSETRON PF 4 MG/2 ML VIAL. IVP PRN (10:15)
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
[2021-07-24] MEDS ORDERED: MORPHINE SULFATE 2 MG/ML INJ. IVP ONE ×2 (11:15→21:45)
--- NOTE | 2021-07-24 11:15 | PDOC1 ---
History and Physical Date of Service: DOS: DATE: 07/24/21 TIME: 11:02 Chief Complaint: Chief Complain: syncope History of Present Illness: HPI: Patient is a 41-year-old male presented to the emergency room at [facility] due to syncopal episodes. Was subsequently transferred here for further evaluation. Patient has a history of A. fib on home Eliquis and CHF. Follows with Dr Muhammad. Patient reports that over the past month or so he has been having syncopal episodes. Reports these episodes occur when he gets up from sitting or laying too quickly when he stands feels very dizzy in his head and gets nauseous. Excessively gets that feeling sometimes he will pass out and does report having hit his head in the past. Uncertain how long he remains down. Patient reports he was actually supposed to get an EGD yesterday but was unable to due to hypertension. Said he has been having dark bloody bowel movements and is very bloated. Follows with Dr. Liriano. When I evaluated the patient he was resting in bed comfortably. Was complaining of some pain and a headache lower extremity pain. Said he was not having any bloody bowel movements at the moment. Still feels very dizzy when he gets up. Past Medical/Surgical History: PMH/PSH: A. fib on home Eliquis, CHF EF 15 to 20%, gout Allergies: Allergies: Coded Allergies: No Known Drug Allergies (Unverified , 12/26/20) Family History: Family History: Heart disease Social History: Social History: Daily tobacco smoker. Occasional methamphetamine use. Denies alcohol use Current Medications: Current Medications Current Medications Metoprolol Tartrate (Lopressor) 50 mg 1X ONCE PO Last administered on 07/24/21at 00:54; Start 07/24/21 at 00:45; Stop 07/24/21 at 00:46; Status DC Hydralazine HCl (Apresoline Inj) 10 mg PRN Q6HRS PRN IVP ELEVATED BP, SEE COMMENTS Last administered on 07/24/21at 00:55; Start 07/24/21 at 00:45 Acetaminophen (Tylenol) 650 mg PRN Q4HRS PRN PO MILD PAIN / TEMP > 100.3'F; Start 07/24/21 at 00:45; Stop 07/24/21 at 10:15; Status DC Apixaban (Eliquis) 5 mg BID PO Last administered on 07/24/21at 08:33; Start 07/24/21 at 09:00 Colchicine (Colcrys) 0.6 mg PRN DAILY PRN PO knee pain from gout Last administered on 07/24/21at 08:32; Start 07/24/21 at 00:45 Metoprolol Tartrate (Lopressor) 50 mg BID PO Last administered on 07/24/21at 08:33; Start 07/24/21 at 09:00 Pantoprazole Sodium (Protonix) 40 mg DAILYAC PO Last administered on 07/24/21at 06:01; Start 07/24/21 at 07:30 Sacubitril/ Valsartan (Entresto 49 Mg-51 Mg) 1 tab BID PO Last administered on 07/24/21at 08:33; Start 07/24/21 at 09:00 Sucralfate (Carafate) 1 gm BIDAC PO Last administered on 07/24/21at 06:01; Start 07/24/21 at 07:30 Ondansetron HCl (Zofran) 4 mg PRN Q6HRS PRN IVP NAUSEA/VOMITING; Start 07/24/21 at 10:15 Calcium Carbonate/ Glycine (Tums) 500 mg PRN Q3HRS PRN PO UPSET STOMACH; Start 07/24/21 at 10:15 Zolpidem Tartrate (Ambien) 5 mg PRN QHS PRN PO INSOMNIA, MAY REPEAT IN 1HR; Start 07/24/21 at 10:15 Info (Non-Icu Electrolyte Protocol) 1 ea PRN DAILY PRN MC SEE COMMENTS; Start 07/24/21 at 10:15 Acetaminophen (Tylenol) 650 mg PRN Q6HRS PRN PO Headaches, Temp > 101.5F; Start 07/24/21 at 10:15 Senna/Docusate Sodium (Senna Plus) 1 tab BID PO ; Start 07/24/21 at 21:00 Heparin Sodium (Porcine) (Heparin Sodium) 5,000 unit Q8HRS SQ ; Start 07/24/21 at 14:00; Stop 07/24/21 at 10:15; Status DC Active Scripts Active Eliquis (Apixaban) 5 Mg Tablet 5 Mg PO BID 30 Days Pantoprazole Sodium (Pantoprazole Sodium) 40 Mg Tablet.dr 40 Mg PO DAILYAC 30 Days Entresto 49 mg-51 mg Tablet (Sacubitril/Valsartan) 1 Each Tablet 1 Tab PO BID Colcrys (Colchicine) 0.6 Mg Tablet 0.6 Mg PO DAILY PRN Reported Tylenol (Acetaminophen) 325 Mg Tablet 2 Tab PO PRN Q4HRS Carafate (Sucralfate) 1 Gm Tablet 1 Tab PO BID 30 Days Metoprolol Tartrate 50 Mg Tablet 1 Tab PO BID ROS: Review of Systems Review of System Unless noted in HPI 14 point review of systems was negative Physical Exam: Vital Signs: Vital Signs Date Time Temp Pulse Resp B/P (MAP) Pulse Ox O2 Delivery O2 Flow Rate FiO2 07/24/21 08:33 84 143/116 07/24/21 07:00 97.4 16 98 Room Air 97.4 Physcial Exam: GEN: No apparent distress. Alert and oriented HEENT: Normal cephalic, atraumatic, external auditory canals are patent EYES: Extraocular muscles are intact, pupil are equally round and reactive to light and accommodation MUSCULOSKELETAL: Well developed , well nourished, good range of motion ENDOCRINE: No thyromegaly was palpated LYMPHATICS: No cervical chain or axillary nodes were noted HEMATOPOIETIC: No bruising NECK: Supple, no JVD, no thyromegaly was noted LUNGS: Clear to auscultation in all lung wilson without rhonchi or wheezing HEART: Irregularly irregular ABDOMEN: Diffusely tender. Distended EXTREMITIES: Mild bilateral lower extremity edema NEUROLOGIC: Normal speech and tone. A&O x 3, moves all extremities, no obvious focal deficits PSYCHIATRIC: Normal affect, normal mood. Stable SKIN: No ulcerations or rashes, good skin turgor, no jaundice VASCULAR: Good capillary refill, neurovascular bundle appears to be intact Labs: Labs: Laboratory Tests Test 07/24/21 04:00 White Blood Count 9.5 x10^3/uL (4.0-11.0) Hemoglobin 15.8 g/dL (13.0-17.5) Hematocrit 48.9 % (39.0-53.0) Platelet Count 300 x10^3/uL (140-400) Sodium Level 142 mmol/L (136-145) Potassium Level 3.6 mmol/L (3.5-5.1) Chloride Level 105 mmol/L (98-107) Carbon Dioxide Level 26 mmol/L (21-32) Anion Gap 11 (6-14) Blood Urea Nitrogen 28 mg/dL (8-26) Creatinine 1.4 mg/dL (0.7-1.3) Estimated GFR (Cockcroft-Gault) 55.8 BUN/Creatinine Ratio 20 (6-20) Glucose Level 140 mg/dL (70-99) Calcium Level 8.1 mg/dL (8.5-10.1) Total Bilirubin 0.7 mg/dL (0.2-1.0) Aspartate Amino Transf (AST/SGOT) 25 U/L (15-37) Alanine Aminotransferase (ALT/SGPT) 33 U/L (16-63) Alkaline Phosphatase 105 U/L (46-116) Total Protein 5.8 g/dL (6.4-8.2) Albumin 2.8 g/dL (3.4-5.0) Albumin/Globulin Ratio 0.9 (1.0-1.7) Laboratory Tests Test 07/24/21 04:00 White Blood Count 9.5 x10^3/uL (4.0-11.0) Hemoglobin 15.8 g/dL (13.0-17.5) Hematocrit 48.9 % (39.0-53.0) Platelet Count 300 x10^3/uL (140-400) Sodium Level 142 mmol/L (136-145) Potassium Level 3.6 mmol/L (3.5-5.1) Chloride Level 105 mmol/L (98-107) Carbon Dioxide Level 26 mmol/L (21-32) Anion Gap 11 (6-14) Blood Urea Nitrogen 28 mg/dL (8-26) Creatinine 1.4 mg/dL (0.7-1.3) Estimated GFR (Cockcroft-Gault) 55.8 BUN/Creatinine Ratio 20 (6-20) Glucose Level 140 mg/dL (70-99) Calcium Level 8.1 mg/dL (8.5-10.1) Total Bilirubin 0.7 mg/dL (0.2-1.0) Aspartate Amino Transf (AST/SGOT) 25 U/L (15-37) Alanine Aminotransferase (ALT/SGPT) 33 U/L (16-63) Alkaline Phosphatase 105 U/L (46-116) Total Protein 5.8 g/dL (6.4-8.2) Albumin 2.8 g/dL (3.4-5.0) Albumin/Globulin Ratio 0.9 (1.0-1.7) Assessment/Plan Assessment/Plan Syncope and collapse secondary to HFrEF 15 to 20% versus atrial fibrillation versus cardiomyopathy related to methamphetamine abuse, gout -Patient transferred here from outside facility after presenting there with multiple syncopal episodes -Patient with notable cardiac history. Was due for EGD and colonoscopy yesterday for abdominal pain but could not due to his blood pressure -Uncertain how compliant patient is with medications given his blood pressure on presentation yesterday. Says he has been holding his Eliquis for the upcoming procedure but did resume it yesterday after it was canceled. Denies any ongoing bloody bowel movements -Syncope and collapsem, we will consult cardiology. Recently had a cath earlier this month. -GI consult to see if EGD still needed inpatient. -PT OT -PAT consult -DVT prophylaxis will be Eliquis -Cardiac diet Justifications for Admission Other Justification ACUTE NSTEMI ART GONSALEZ MD Jul 24, 2021 11:15
[2021-07-24] MEDS ORDERED: FUROSEMIDE 40 MG/4 ML VIAL. IVP ONE (11:30)
[2021-07-24] MEDS: METOPROLOL SUCC 24HR ER 50 MG TAB.ER.24H. PO SCH (11:54)
[2021-07-24] MEDS: SPIRONOLACTONE 25 MG TABLET PO SCH (11:54)
--- NOTE | 2021-07-24 11:57 | RAD ---
EXAM: Chest, single view. HISTORY: Pulmonary edema. COMPARISON: 02/20/2021 FINDINGS: A frontal view of the chest is obtained. There is no infiltrate, pleural effusion or pneumo thorax. There is a stable enlarged cardiac silhouette. IMPRESSION: Stable enlarged cardiac silhouette. Electronically signed by: Sandra Barcenas MD (07/24/2021 11:55 AM) [id number]
--- NOTE | 2021-07-24 13:34 | PDOC2 ---
CONSULT Date of Consult Date of Consult DATE: 07/24/21 TIME: 13:28 History of Present Illness Reason for Visit: This is a 41-year-old gentleman who was transferred here because of recurrent syncope and accelerated hypertension. We had recently seen him in our office for chronic abdominal bloating and indigestion and altered bowel pattern. He previously had had some rectal bleeding but that was over a month ago. He in fact was prepped for colonoscopy and EGD on Tuesday of this week at [facility] but at presentation had malignant hypertension with a diastolic blood pressure ranging from 125-135 and only minimally responded to administration of beta-blockers. He had already been on beta-blockers before that but apparently they were not working well although compliance was in question. He also has a history of methamphetamine use although he denied using it recently. His procedure was canceled and he was advised to go see his unarmed security guard as soon as possible. Apparently he slept the next day and then went to the hospital after having a near syncope episode at home. He also describes some increased abdominal bloating and discomfort but no severe pain. Because his cardiac evaluation has been primarily at this facility was transferred here and we were asked to see him about the GI complaints. He has not had a normal bowel movement since surgery but is also not been eating very well. He has had no further rectal bleeding. Past Medical History Cardiovascular: CHF, HTN, Hyperlipidemia, Pulmonary hypertension, Other Pulmonary: COPD CENTRAL NERVOUS SYSTEM: Other GI: No pertinent hx Heme/Onc: Other Hepatobiliary: No pertinent hx Psych: No pertinent hx Musculoskeletal: Osteoarthritis Rheumatologic: No pertinent hx Infectious disease: No pertinent hx Renal/: Chronic renal insuff Endocrine: No pertinent hx Past Surgical History Past Surgical History: Other Family History Family History: Heart Disease Social History ALCOHOL: none Drugs: Crystal meth Lives: with Family Current Medications Current Medications Current Medications Metoprolol Tartrate (Lopressor) 50 mg 1X ONCE PO Last administered on 07/24/21at 00:54; Start 07/24/21 at 00:45; Stop 07/24/21 at 00:46; Status DC Hydralazine HCl (Apresoline Inj) 10 mg PRN Q6HRS PRN IVP ELEVATED BP, SEE COMMENTS Last administered on 07/24/21at 00:55; Start 07/24/21 at 00:45 Acetaminophen (Tylenol) 650 mg PRN Q4HRS PRN PO MILD PAIN / TEMP > 100.3'F; Start 07/24/21 at 00:45; Stop 07/24/21 at 10:15; Status DC Apixaban (Eliquis) 5 mg BID PO Last administered on 07/24/21at 08:33; Start 07/24/21 at 09:00 Colchicine (Colcrys) 0.6 mg PRN DAILY PRN PO knee pain from gout Last administered on 07/24/21at 08:32; Start 07/24/21 at 00:45 Metoprolol Tartrate (Lopressor) 50 mg BID PO Last administered on 07/24/21at 08:33; Start 07/24/21 at 09:00; Stop 07/24/21 at 11:23; Status DC Pantoprazole Sodium (Protonix) 40 mg DAILYAC PO Last administered on 07/24/21at 06:01; Start 07/24/21 at 07:30 Sacubitril/ Valsartan (Entresto 49 Mg-51 Mg) 1 tab BID PO Last administered on 07/24/21at 08:33; Start 07/24/21 at 09:00 Sucralfate (Carafate) 1 gm BIDAC PO Last administered on 07/24/21at 06:01; Start 07/24/21 at 07:30 Ondansetron HCl (Zofran) 4 mg PRN Q6HRS PRN IVP NAUSEA/VOMITING; Start 07/24/21 at 10:15 Calcium Carbonate/ Glycine (Tums) 500 mg PRN Q3HRS PRN PO UPSET STOMACH; Start 07/24/21 at 10:15 Zolpidem Tartrate (Ambien) 5 mg PRN QHS PRN PO INSOMNIA, MAY REPEAT IN 1HR; Start 07/24/21 at 10:15 Info (Non-Icu Electrolyte Protocol) 1 ea PRN DAILY PRN MC SEE COMMENTS; Start 07/24/21 at 10:15 Acetaminophen (Tylenol) 650 mg PRN Q6HRS PRN PO Headaches, Temp > 101.5F; Start 07/24/21 at 10:15 Senna/Docusate Sodium (Senna Plus) 1 tab BID PO ; Start 07/24/21 at 21:00 Heparin Sodium (Porcine) (Heparin Sodium) 5,000 unit Q8HRS SQ ; Start 07/24/21 at 14:00; Stop 07/24/21 at 10:15; Status DC Morphine Sulfate (Morphine Sulfate) 2 mg 1X ONCE IVP Last administered on 07/24/21at 11:55; Start 07/24/21 at 11:15; Stop 07/24/21 at 11:16; Status DC Metoprolol Succinate (Toprol Xl) 50 mg DAILY PO Last administered on 07/24/21at 11:54; Start 07/24/21 at 11:30 Spironolactone (Aldactone) 25 mg DAILY PO Last administered on 07/24/21at 11:54; Start 07/24/21 at 11:30 Furosemide (Lasix) 40 mg 1X ONCE IVP Last administered on 07/24/21at 11:54; Start 07/24/21 at 11:30; Stop 07/24/21 at 11:31; Status DC Furosemide (Lasix) 40 mg DAILY IVP ; Start 07/25/21 at 09:00 Active Scripts Active Eliquis (Apixaban) 5 Mg Tablet 5 Mg PO BID 30 Days Pantoprazole Sodium (Pantoprazole Sodium) 40 Mg Tablet.dr 40 Mg PO DAILYAC 30 Days Entresto 49 mg-51 mg Tablet (Sacubitril/Valsartan) 1 Each Tablet 1 Tab PO BID Colcrys (Colchicine) 0.6 Mg Tablet 0.6 Mg PO DAILY PRN Reported Tylenol (Acetaminophen) 325 Mg Tablet 2 Tab PO PRN Q4HRS Carafate (Sucralfate) 1 Gm Tablet 1 Tab PO BID 30 Days Metoprolol Tartrate 50 Mg Tablet 1 Tab PO BID Allergies Allergies: Coded Allergies: No Known Drug Allergies (Unverified , 12/26/20) Physical Exam General: Alert, Oriented X3, Cooperative HEENT: Atraumatic Lungs: Clear to auscultation Heart: Regular rate, Normal S1, Normal S2, Other Abdomen: Soft, Other (Abdominal distention but without mass.) Extremities: No clubbing Neuro: Normal speech Psych/Mental Status: Mental status NL Vitals VITALS Vital Signs Date Time Temp Pulse Resp B/P (MAP) Pulse Ox O2 Delivery O2 Flow Rate FiO2 07/24/21 12:25 98 Room Air 07/24/21 11:54 78 166/112 07/24/21 11:00 97.5 16 97.5 Labs Labs Laboratory Tests Test 07/24/21 04:00 White Blood Count 9.5 x10^3/uL (4.0-11.0) Hemoglobin 15.8 g/dL (13.0-17.5) Hematocrit 48.9 % (39.0-53.0) Platelet Count 300 x10^3/uL (140-400) Sodium Level 142 mmol/L (136-145) Potassium Level 3.6 mmol/L (3.5-5.1) Chloride Level 105 mmol/L (98-107) Carbon Dioxide Level 26 mmol/L (21-32) Anion Gap 11 (6-14) Blood Urea Nitrogen 28 mg/dL (8-26) Creatinine 1.4 mg/dL (0.7-1.3) Estimated GFR (Cockcroft-Gault) 55.8 BUN/Creatinine Ratio 20 (6-20) Glucose Level 140 mg/dL (70-99) Calcium Level 8.1 mg/dL (8.5-10.1) Total Bilirubin 0.7 mg/dL (0.2-1.0) Aspartate Amino Transf (AST/SGOT) 25 U/L (15-37) Alanine Aminotransferase (ALT/SGPT) 33 U/L (16-63) Alkaline Phosphatase 105 U/L (46-116) Total Protein 5.8 g/dL (6.4-8.2) Albumin 2.8 g/dL (3.4-5.0) Albumin/Globulin Ratio 0.9 (1.0-1.7) Laboratory Tests Test 07/24/21 04:00 White Blood Count 9.5 x10^3/uL (4.0-11.0) Hemoglobin 15.8 g/dL (13.0-17.5) Hematocrit 48.9 % (39.0-53.0) Platelet Count 300 x10^3/uL (140-400) Sodium Level 142 mmol/L (136-145) Potassium Level 3.6 mmol/L (3.5-5.1) Chloride Level 105 mmol/L (98-107) Carbon Dioxide Level 26 mmol/L (21-32) Anion Gap 11 (6-14) Blood Urea Nitrogen 28 mg/dL (8-26) Creatinine 1.4 mg/dL (0.7-1.3) Estimated GFR (Cockcroft-Gault) 55.8 BUN/Creatinine Ratio 20 (6-20) Glucose Level 140 mg/dL (70-99) Calcium Level 8.1 mg/dL (8.5-10.1) Total Bilirubin 0.7 mg/dL (0.2-1.0) Aspartate Amino Transf (AST/SGOT) 25 U/L (15-37) Alanine Aminotransferase (ALT/SGPT) 33 U/L (16-63) Alkaline Phosphatase 105 U/L (46-116) Total Protein 5.8 g/dL (6.4-8.2) Albumin 2.8 g/dL (3.4-5.0) Albumin/Globulin Ratio 0.9 (1.0-1.7) Assessment/Plan Assessment/Plan Chronic bloating and abdominal discomfort. Describes it mostly as difficulty with digestion. We had and an elective endoscopy this week but was canceled due to malignant hypertension at time of presentation. He also was prepped for a colonoscopy as well. However these abdominal complaints of bloating and indigestion are not new and are not likely triggering his syncopal episodes. Remote history of rectal bleeding. None in the last month. Plan: We will defer about control of his hypertension. He still has a high diastolic in spite of treatment here. This needs to be better controlled before we can proceed with elective endoscopic evaluations under sedation. I will plan EGD and colonoscopy in the hospital setting as an outpatient after his discharge. POLLY BRADSHAW MD Jul 24, 2021 13:34
[2021-07-24] MEDS ORDERED: HEPARIN for SUB-Q USE 5,000 UNIT/ML VIAL. SQ SCH (14:00)
[2021-07-24 17:10] LABS: BARBITURATES NEG (NEG); BENZODIAZEPINES NEG (NEG); CANNABINOIDS NEG (NEG); COCAINE NEG (NEG); METHADONE NEG (NEG); OPIATES NEG (NEG); PHENCYCLIDINE NEG (NEG)
[2021-07-24 17:13] LABS: AMPHETAMINE/METHAMPHETAMINE POS (NEG)
[2021-07-24] MEDS: SENNOSIDES/DOCUSATE 8.6/50MG TABLET. PO SCH (21:23)
[2021-07-24] MEDS: ACETAMINOPHEN 325 MG TABLET. PO PRN (21:24)
[2021-07-24] MEDS ORDERED: MORPHINE SULFATE 2 MG/ML INJ. IVP PRN (21:45)
[2021-07-24] MEDS ORDERED: predniSONE 20 MG TABLET PO ONE ×2 (21:45)
[2021-07-25] VITALS (7 sets, daily range): BP systolic 135–205; BP diastolic 91–158
[2021-07-25] MEDS: PANTOPRAZOLE 40 MG TABLET.DR. PO SCH (08:51)
[2021-07-25] MEDS: SENNOSIDES/DOCUSATE 8.6/50MG TABLET. PO SCH ×2 (08:51→20:02)
[2021-07-25] MEDS: SUCRALFATE 1 GM TABLET. PO SCH ×2 (08:51→16:46)
[2021-07-25] MEDS: APIXABAN 5 MG TABLET. PO SCH ×2 (08:51→20:02)
[2021-07-25] MEDS: METOPROLOL SUCC 24HR ER 50 MG TAB.ER.24H. PO SCH (08:52)
[2021-07-25] MEDS: SPIRONOLACTONE 25 MG TABLET PO SCH (08:52)
[2021-07-25] MEDS: SACUBITRIL/VALSARTAN 49/51MG TABLET. PO SCH ×2 (08:52→20:02)
[2021-07-25] MEDS: FUROSEMIDE 40 MG/4 ML VIAL. IVP SCH (08:53)
[2021-07-25] MEDS ORDERED: SIMETHICONE 80 MG TAB.CHEW PO PRN (11:45)
[2021-07-25] MEDS ORDERED: GABAPENTIN 300 MG CAPSULE. PO ONE (11:45)
[2021-07-25 12:13] LABS: CALCIUM 8.6 mg/dL (8.5-10.1); CREATININE 1.6 mg/dL (0.7-1.3); GFR 47.9; POTASSIUM 4.2 mmol/L (3.5-5.1)
--- NOTE | 2021-07-25 12:21 | PDOC ---
GI PROGRESS NOTES Date of Service: Date/Time DATE: 07/25/21 TIME: 12:18 Subjective Subjective Abdominal distention He describes a new rash on his abdomen Objective Vitals Vital Signs Date Time Temp Pulse Resp B/P (MAP) Pulse Ox O2 Delivery O2 Flow Rate FiO2 07/25/21 11:39 85 205/158 07/25/21 10:58 97.4 85 19 205/158 (174) 93 Room Air 97.4 07/25/21 08:52 76 135/96 07/25/21 08:52 76 135/96 07/25/21 08:20 Room Air 07/25/21 07:00 97.6 85 19 186/132 (150) 94 Room Air 97.6 07/25/21 03:12 97.4 76 16 135/96 (109) 96 Room Air 97.4 07/24/21 22:33 78 18 133/104 (114) 94 Room Air 07/24/21 21:23 75 130/96 07/24/21 20:00 Room Air 07/24/21 19:00 97.6 75 22 130/96 (107) 98 Room Air 97.6 07/24/21 16:00 147/90 (109) 07/24/21 14:51 96.9 73 20 161/110 (127) 95 Room Air 96.9 07/24/21 12:25 98 Room Air Labs Labs Laboratory Tests Test 07/24/21 16:13 07/25/21 11:40 Urine Opiates Screen Neg (NEG) Urine Methadone Screen Neg (NEG) Urine Barbiturates Neg (NEG) Urine Phencyclidine Screen Neg (NEG) Urine Amphetamine/Methamphetamine Pos (NEG) Urine Benzodiazepines Screen Neg (NEG) Urine Cocaine Screen Neg (NEG) Urine Cannabinoids Screen Neg (NEG) Urine Ethyl Alcohol Neg (NEG) Sodium Level 138 mmol/L (136-145) Potassium Level 4.2 mmol/L (3.5-5.1) Chloride Level 97 mmol/L (98-107) Carbon Dioxide Level 34 mmol/L (21-32) Anion Gap 7 (6-14) Blood Urea Nitrogen 34 mg/dL (8-26) Creatinine 1.6 mg/dL (0.7-1.3) Estimated GFR (Cockcroft-Gault) 47.9 Glucose Level 217 mg/dL (70-99) Calcium Level 8.6 mg/dL (8.5-10.1) Physical Exam Physical Exam Abdominal distention and obesity A fine rash on both lateral aspects of his abdomen. Assessment Assessment Abdominal distention and bloating. Although he claims these are new symptoms have been evaluated as recently as January of this year. Extensive work-up revealed may be some mild cholecystitis but was otherwise negative. He also has had atrial fibrillation and methamphetamine use with continuing malignant hypertension. These have impacted on our ability to do any elective diagnostic work-up including EGD and colonoscopy which were scheduled this past week. He also has had no bowel movement since his bowel prep on Tuesday. He is eating however and has no nausea or vomiting. Plan Plan Continue to treat and manage his hypertension and cardiac disease Discussed with him that his urine test came back positive for amphetamines but he denies using them in the last week. This certainly is a cocontributor to his symptoms and his heart disease and he has been advised to stop this completely After he is eating we would expect his bowel function to return to normal. As needed use of laxative may be appropriate but has not been needed in the past Once his blood pressure is controlled we will recommend outpatient EGD and colonoscopy Justicifation of Admission Dx: Justifications for Admission: Justification of Admission Dx: No POLLY BRADSHAW MD Jul 25, 2021 12:21
[2021-07-25] MEDS: hydrALAZINE 20 MG/ML VIAL. IVP PRN (12:59)
--- NOTE | 2021-07-25 13:33 | NUR ---
MEDICATION PT REPORTS RELIEF OF FOOT PAIN WITH DOSE OF GABAPENTIN. WILL PROCEED WITH TID DOSING ORDERED BY PHYSICIAN.
[2021-07-25] MEDS: GABAPENTIN 300 MG CAPSULE. PO SCH (20:02)
[2021-07-26] VITALS (7 sets, daily range): BP systolic 153–231; BP diastolic 77–140
[2021-07-26] MEDS: hydrALAZINE 20 MG/ML VIAL. IVP PRN ×2 (03:25→19:34)
--- NOTE | 2021-07-26 03:28 | NUR ---
231/140 ADMIN IV HYDRALIZINE. LCRN
[2021-07-26] MEDS ORDERED: LABETALOL 20 MG/4 ML DISP.SYRIN. IVP ONE (07:00)
--- NOTE | 2021-07-26 07:00 | NUR ---
SPOKR TO DR AMAYA ABOUT BP SEE ONE TIME 20 IV LABETOLOL. LCRN
[2021-07-26] MEDS: APIXABAN 5 MG TABLET. PO SCH ×2 (08:41→21:18)
[2021-07-26] MEDS: GABAPENTIN 300 MG CAPSULE. PO SCH ×3 (08:41→21:18)
[2021-07-26] MEDS: SACUBITRIL/VALSARTAN 49/51MG TABLET. PO SCH ×2 (08:41→21:19)
[2021-07-26] MEDS: PANTOPRAZOLE 40 MG TABLET.DR. PO SCH (08:41)
[2021-07-26] MEDS: SENNOSIDES/DOCUSATE 8.6/50MG TABLET. PO SCH ×2 (08:41→21:18)
[2021-07-26] MEDS: SUCRALFATE 1 GM TABLET. PO SCH ×2 (08:42→16:35)
[2021-07-26] MEDS: SPIRONOLACTONE 25 MG TABLET PO SCH (08:42)
[2021-07-26] MEDS: METOPROLOL SUCC 24HR ER 50 MG TAB.ER.24H. PO SCH (08:42)
[2021-07-26] MEDS: FUROSEMIDE 40 MG/4 ML VIAL. IVP SCH (08:43)
--- NOTE | 2021-07-26 09:25 | PDOC ---
[employer] PROGRESS NOTE Date of Service DOS: DATE: 07/26/21 TIME: 09:23 History of Present Illness History of Present Illness Patient is a 41-year-old male presented to the emergency room at [facility] overnight due to syncopal episodes. Was subsequently transferred here for further evaluation. Patient has a history of A. fib on home Eliquis and CHF. Follows with Dr Muhammad. Patient reports that over the past month or so he has been having syncopal episodes. Reports these episodes occur when he gets up from sitting or laying too quickly when he stands feels very dizzy in his head and gets nauseous. Excessively gets that feeling sometimes he will pass out and does report having hit his head in the past. Uncertain how long he remains down. Patient reports he was actually supposed to get an EGD yesterday but was unable to due to hypertension. Said he has been having dark bloody bowel movements and is very bloated. Follows with Dr. Liriano. When I evaluated the patient he was resting in bed comfortably. Was complaining of some pain and a headache lower extremity pain. Said he was not having any bloody bowel movements at the moment. Still feels very dizzy when he gets up. 07/25 Late entry for July 25. Patient evaluated examined at bedside. Still does have pretty high blood pressures up in the 200s at times. Adding on Norvasc today will check with pharmacy if 97 [phone] Entresto dose available here. GI following. Cardiology following. Vitals/I&O Vitals/I&O: Vital Signs Date Time Temp Pulse Resp B/P (MAP) Pulse Ox O2 Delivery O2 Flow Rate FiO2 07/26/21 08:45 92 156/98 (117) 07/26/21 06:44 98.3 20 98 Room Air 98.3 I & O 07/25/21 07/25/21 07/26/21 15:00 23:00 07:00 Intake Total 480 ml 400 ml 0 ml Output Total 1200 ml 1000 ml Balance -720 ml -600 ml 0 ml Physical Exam General: Alert, Oriented X3, Cooperative Heart: Regular rate, Normal S1, Normal S2, Other Lungs: Clear Abdomen: Soft, Other (Abdominal distention but without mass.) Extremities: No clubbing Labs Labs: Laboratory Tests Test 07/25/21 11:40 Sodium Level 138 mmol/L (136-145) Potassium Level 4.2 mmol/L (3.5-5.1) Chloride Level 97 mmol/L (98-107) Carbon Dioxide Level 34 mmol/L (21-32) Anion Gap 7 (6-14) Blood Urea Nitrogen 34 mg/dL (8-26) Creatinine 1.6 mg/dL (0.7-1.3) Estimated GFR (Cockcroft-Gault) 47.9 Glucose Level 217 mg/dL (70-99) Calcium Level 8.6 mg/dL (8.5-10.1) Comment Review of Relevant I have reviewed the following items tiffanie (where applicable) has been applied. Medications: Current Medications Medications (Trade) Dose Ordered Sig/Lena Route PRN Reason Start Time Stop Time Status Last Admin Dose Admin Amlodipine Besylate (Norvasc) 5 mg DAILY PO 07/25/21 11:30 07/26/21 08:42 Gabapentin (Neurontin) 300 mg 1X ONCE PO 07/25/21 11:45 07/25/21 11:46 DC 07/25/21 11:39 Simethicone (Gas-X) 80 mg PRN Q6HRS PRN PO GAS / BLOATING 07/25/21 11:45 07/25/21 11:39 Gabapentin (Neurontin) 300 mg TID PO 07/25/21 21:00 07/26/21 08:41 Labetalol HCl (Normodyne Iv Push) 20 mg 1X ONCE IVP 07/26/21 07:00 07/26/21 07:01 DC 07/26/21 07:30 Justifications for Admission Other Justification ACUTE NSTEMI ART GONSALEZ MD Jul 26, 2021 09:25
[2021-07-26] MEDS ORDERED: SACUBITRIL/VALSARTAN 49/51MG TABLET. PO ONE (10:00)
--- NOTE | 2021-07-26 10:29 | PDOC ---
CARDIOLOGY PROGRESS NOTE SUBJECTIVE: Patient remains extremely hypertensive overnight. Required IV labetalol and hydralazine this morning. He currently denies any chest pain. He does not have any other pain. He denies any dyspnea. No palpitations or syncope No specific nursing concerns OBJECTIVE: Vital Signs/I&O: Vital Signs Date Time Temp Pulse Resp B/P (MAP) Pulse Ox O2 Delivery O2 Flow Rate FiO2 07/26/21 08:45 92 156/98 (117) 07/26/21 06:44 98.3 20 98 Room Air 98.3 I & O 07/25/21 07/25/21 07/26/21 15:00 23:00 07:00 Intake Total 480 ml 400 ml 0 ml Output Total 1200 ml 1000 ml Balance -720 ml -600 ml 0 ml Objective: GEN.: No apparent distress. Alert and oriented. HEENT: Head is normocephalic, atraumatic NECK: Supple. LUNGS: Clear to auscultation. HEART: RRR, S1, S2 present. Peripheral pulses intact ABDOMEN: Soft, nontender. Positive bowel sounds. EXTREMITIES: Without any cyanosis. 1+ bilateral lower extremity edema NEUROLOGIC: Normal speech, normal tone PSYCHIATRIC: Normal affect, normal mood. SKIN: No ulcerations CURRENT MEDICATIONS: Metoprolol XL 50 mg daily Entresto 49/51 mg p.o. twice daily Spironolactone 25 mg daily Amlodipine 10 mg daily Lasix 40 mg IV push DIAGNOSTIC TESTING: Laboratory studies reviewed, creatinine mildly elevated 1.6 ASSESSMENT: 1. Dyspnea - likely acute on chronic systolic heart failure. 2. NICM - EF 20% 3. Substance abuse 4. HTN 5. Abdominal pain - likely passive congestion, ? GERD or other primary abdominal process. 6. PAF PLAN: 1. Continue above medical therapy 2. We will add hydralazine 50 mg p.o. twice daily 3. Supportive care. We will obtain samples for him to help him through the next few weeks until he is able to obtain disability to help afford his medications. We will follow along closely. Justicifation of Admission Dx: Justifications for Admission: Justification of Admission Dx: No CEM DANGELO MD Jul 26, 2021 10:29
--- NOTE | 2021-07-26 12:00 | PDOC ---
[employer] PROGRESS NOTE Date of Service DOS: DATE: 07/26/21 TIME: 11:58 History of Present Illness History of Present Illness Patient is a 41-year-old male presented to the emergency room at [facility] overnight due to syncopal episodes. Was subsequently transferred here for further evaluation. Patient has a history of A. fib on home Eliquis and CHF. Follows with Dr Muhammad. Patient reports that over the past month or so he has been having syncopal episodes. Reports these episodes occur when he gets up from sitting or laying too quickly when he stands feels very dizzy in his head and gets nauseous. Excessively gets that feeling sometimes he will pass out and does report having hit his head in the past. Uncertain how long he remains down. Patient reports he was actually supposed to get an EGD yesterday but was unable to due to hypertension. Said he has been having dark bloody bowel movements and is very bloated. Follows with Dr. Liriano. When I evaluated the patient he was resting in bed comfortably. Was complaining of some pain and a headache lower extremity pain. Said he was not having any bloody bowel movements at the moment. Still feels very dizzy when he gets up. 07/25 Late entry for July 25. Patient evaluated examined at bedside. Still does have pretty high blood pressures up in the 200s at times. Adding on Norvasc today will check with pharmacy if 97 [phone] Entresto dose available here. GI following. Cardiology following. 07/26 Patient evaluated examined at bedside. Very hypertensive again overnight. Increase Entresto dose. Hydralazine added on by cardiology. Patient still with a ways to go before discharge. Blood pressure has been under control before EGD which will be done outpatient at this point. Continue current plan Vitals/I&O Vitals/I&O: Vital Signs Date Time Temp Pulse Resp B/P (MAP) Pulse Ox O2 Delivery O2 Flow Rate FiO2 07/26/21 08:45 92 156/98 (117) 07/26/21 06:44 98.3 20 98 Room Air 98.3 I & O 07/25/21 07/25/21 07/26/21 15:00 23:00 07:00 Intake Total 480 ml 400 ml 0 ml Output Total 1200 ml 1000 ml Balance -720 ml -600 ml 0 ml Physical Exam General: Alert, Oriented X3, Cooperative Heart: Regular rate, Normal S1, Normal S2, Other Lungs: Clear Abdomen: Soft, Other (Abdominal distention but without mass.) Extremities: No clubbing Assessment and Plan Assessmemt and Plan Syncope and collapse secondary to HFrEF 15 to 20% versus atrial fibrillation versus cardiomyopathy related to methamphetamine abuse, gout, hypertensive emergency -Patient transferred here from outside facility after presenting there with multiple syncopal episodes -Patient with notable cardiac history. Was due for EGD and colonoscopy yesterday for abdominal pain but could not due to his blood pressure -Uncertain how compliant patient is with medications given his blood pressure on presentation yesterday. Says he has been holding his Eliquis for the upcoming procedure but did resume it yesterday after it was canceled. Denies any ongoing bloody bowel movements -Syncope and collapsem, we will consult cardiology. Recently had a cath earlier this month. -Still very difficult controlling blood pressure. Increase Entresto. Add hydralazine. -GI consult to see if EGD still needed inpatient. --> Will do outpatient -PT OT -PAT consult -DVT prophylaxis will be Eliquis -Cardiac diet Comment Review of Relevant I have reviewed the following items tiffanie (where applicable) has been applied. Medications: Current Medications Medications (Trade) Dose Ordered Sig/Lena Route PRN Reason Start Time Stop Time Status Last Admin Dose Admin Gabapentin (Neurontin) 300 mg TID PO 07/25/21 21:00 07/26/21 08:41 Labetalol HCl (Normodyne Iv Push) 20 mg 1X ONCE IVP 07/26/21 07:00 07/26/21 07:01 DC 07/26/21 07:30 Justifications for Admission Other Justification ACUTE NSTEMI ART GONSALEZ MD Jul 26, 2021 12:00
[2021-07-26 12:58] LABS: CALCIUM 8.7 mg/dL (8.5-10.1); CREATININE 1.5 mg/dL (0.7-1.3); GFR 51.6; POTASSIUM 3.6 mmol/L (3.5-5.1)
[2021-07-26] MEDS: COLCHICINE 0.6 MG TABLET PO PRN (21:18)
[2021-07-26] MEDS: ACETAMINOPHEN 325 MG TABLET. PO PRN (21:19)
[2021-07-27] VITALS (7 sets, daily range): BP systolic 151–222; BP diastolic 82–128
[2021-07-27] MEDS: GABAPENTIN 300 MG CAPSULE. PO SCH ×3 (08:52→21:30)
[2021-07-27] MEDS: PANTOPRAZOLE 40 MG TABLET.DR. PO SCH (08:52)
[2021-07-27] MEDS: SUCRALFATE 1 GM TABLET. PO SCH ×2 (08:52→16:14)
[2021-07-27] MEDS: FUROSEMIDE 40 MG/4 ML VIAL. IVP SCH (08:52)
[2021-07-27] MEDS: SPIRONOLACTONE 25 MG TABLET PO SCH (08:53)
[2021-07-27] MEDS: SENNOSIDES/DOCUSATE 8.6/50MG TABLET. PO SCH ×2 (08:53→21:29)
[2021-07-27] MEDS: METOPROLOL SUCC 24HR ER 50 MG TAB.ER.24H. PO SCH (08:53)
[2021-07-27] MEDS: APIXABAN 5 MG TABLET. PO SCH ×2 (08:53→21:29)
[2021-07-27] MEDS: SACUBITRIL/VALSARTAN 49/51MG TABLET. PO SCH ×2 (08:54→21:29)
[2021-07-27] MEDS: hydrALAZINE 20 MG/ML VIAL. IVP PRN ×2 (11:03→22:56)
--- NOTE | 2021-07-27 11:40 | PDOC ---
[facility] PROGRESS NOTE Date of Service DOS: DATE: 07/27/21 TIME: 11:34 Chief Complaint Chief Complaint Syncope and collapse secondary to HFrEF 15 to 20% versus atrial fibrillation versus cardiomyopathy related to methamphetamine abuse, gout, hypertensive emergency -Patient transferred here from outside facility after presenting there with multiple syncopal episodes -Patient with notable cardiac history. Was due for EGD and colonoscopy yesterday for abdominal pain but could not due to his blood pressure -Uncertain how compliant patient is with medications given his blood pressure on presentation yesterday. Says he has been holding his Eliquis for the upcoming procedure but did resume it yesterday after it was canceled. Denies any ongoing bloody bowel movements -Syncope and collapsem, we will consult cardiology. Recently had a cath earlier this month. -Still very difficult controlling blood pressure. Increase Entresto. Add hydralazine. -GI consult to see if EGD still needed inpatient. --> Will do outpatient -PT OT -PAT consult -DVT prophylaxis will be Eliquis -Cardiac diet History of Present Illness History of Present Illness Patient is a 41-year-old male presented to the emergency room at [facility] overnight due to syncopal episodes. Was subsequently transferred here for further evaluation. Patient has a history of A. fib on home Eliquis and CHF. Follows with Dr Muhammad. Patient reports that over the past month or so he has been having syncopal episodes. Reports these episodes occur when he gets up from sitting or laying too quickly when he stands feels very dizzy in his head and gets nauseous. Excessively gets that feeling sometimes he will pass out and does report having hit his head in the past. Uncertain how long he remains down. Patient reports he was actually supposed to get an EGD yesterday but was unable to due to hypertension. Said he has been having dark bloody bowel movements and is very bloated. Follows with Dr. Liriano. When I evaluated the patient he was resting in bed comfortably. Was complaining of some pain and a headache lower extremity pain. Said he was not having any bloody bowel movements at the moment. Still feels very dizzy when he gets up. 07/25 Late entry for July 25. Patient evaluated examined at bedside. Still does have pretty high blood pressures up in the 200s at times. Adding on Norvasc today will check with pharmacy if 97 103 Entresto dose available here. GI following. Cardiology following. 07/26 Patient evaluated examined at bedside. Very hypertensive again overnight. Increase Entresto dose. Hydralazine added on by cardiology. Patient still with a ways to go before discharge. Blood pressure has been under control before EGD which will be done outpatient at this point. Continue current plan 07/27 Patient evaluated and examined at bedside. Remains hypertensive. Will increase hydralazine to 3 times daily today. Patient said he had a large bowel movement this morning the first since he is been here. Continue to titrate blood pressure medications. Changed activity order to up ad nicole. patient can walk around unit if he wants to. Cardiology following. Vitals/I&O Vitals/I&O: Vital Signs Date Time Temp Pulse Resp B/P (MAP) Pulse Ox O2 Delivery O2 Flow Rate FiO2 07/27/21 11:03 73 190/123 07/27/21 07:55 Room Air 07/27/21 07:00 97.5 20 97 97.5 I & O 07/26/21 07/26/21 07/27/21 15:00 23:00 07:00 Intake Total 580 ml 350 ml 0 ml Balance 580 ml 350 ml 0 ml Physical Exam General: Alert, Oriented X3, Cooperative Heart: Regular rate, Normal S1, Normal S2, Other Lungs: Clear Abdomen: Soft, Other (Abdominal distention but without mass.) Extremities: No clubbing Labs Labs: Laboratory Tests Test 07/26/21 12:30 07/26/21 17:12 Sodium Level 144 mmol/L (136-145) Potassium Level 3.6 mmol/L (3.5-5.1) Chloride Level 101 mmol/L (98-107) Carbon Dioxide Level 36 mmol/L (21-32) Anion Gap 7 (6-14) Blood Urea Nitrogen 30 mg/dL (8-26) Creatinine 1.5 mg/dL (0.7-1.3) Estimated GFR (Cockcroft-Gault) 51.6 Glucose Level 162 mg/dL (70-99) Calcium Level 8.7 mg/dL (8.5-10.1) Heparin Anti-Xa Act, Unfractionated 0.39 IU/mL (0.30-0.70) Comment Review of Relevant I have reviewed the following items tiffanie (where applicable) has been applied. Medications: Current Medications Medications (Trade) Dose Ordered Sig/Lena Route PRN Reason Start Time Stop Time Status Last Admin Dose Admin Sacubitril/ Valsartan (Entresto 49 Mg-51 Mg) 2 tab BID PO 07/26/21 21:00 07/27/21 08:54 Justifications for Admission Other Justification ACUTE NSTEMI ART GONSALEZ MD Jul 27, 2021 11:39
--- NOTE | 2021-07-27 12:06 | PDOC ---
MICHELLE HORNER SHRINKING MACHINE OPERATOR 07/27/21 1206: CARDIO Progress Notes Date and Time Date of Service 07/27/21 Time of Evaluation 1200 Subjective Subjective: No Chest Pain, No Palpitations, Other (SOA better) Vitals Vitals Vital Signs Date Time Temp Pulse Resp B/P (MAP) Pulse Ox O2 Delivery O2 Flow Rate FiO2 07/27/21 11:03 73 190/123 07/27/21 07:55 Room Air 07/27/21 07:00 97.5 20 97 97.5 Weight Weight [ ] Input and Output Intake and Output Intake and Output 07/27/21 06:59 Intake Total 930 ml Balance 930 ml Intake Oral 930 ml # Voids 6 # Bowel Movements 1 Laboratory Labs Laboratory Tests Test 07/26/21 12:30 07/26/21 17:12 Sodium Level 144 mmol/L (136-145) Potassium Level 3.6 mmol/L (3.5-5.1) Chloride Level 101 mmol/L (98-107) Carbon Dioxide Level 36 mmol/L (21-32) Anion Gap 7 (6-14) Blood Urea Nitrogen 30 mg/dL (8-26) Creatinine 1.5 mg/dL (0.7-1.3) Estimated GFR (Cockcroft-Gault) 51.6 Glucose Level 162 mg/dL (70-99) Calcium Level 8.7 mg/dL (8.5-10.1) Heparin Anti-Xa Act, Unfractionated 0.39 IU/mL (0.30-0.70) Physical Exam HEENT: Neck Supple W Full Motion LUNGS: Clear to Auscultation, Other (diminished bases) Heart: RRR Abdomen: Soft N/T Extremities: Other (1+ bilateral LE edema ) Neurology: alert, oriented, follow commands Assessment Assessment 1. Dyspnea secondary to acute on chronic systolic heart failure. 2. Severe NICM; LVEF 15-20%. Recent cath without CAD 3. Substance abuse; UDS + methamphetamines 4. Accelerated hypertension; labile at times 5. PAF; presently SR 6. CKD Recommendations Diuresis with monitoring of labs Continue HF optimization therapy including Entresto, Toprol, Lasix, and spironolactone Am labs Eliquis for stroke prophylaxis Increase amlodipine to 10mg daily. Monitor BP trends Discussed importance lifestyle modification, cessation of recreation drug use Outpatient echo to reassess LVEF, need for AICD in primary prevention of SCD Justicifation of Admission Dx: Justifications for Admission: Justification of Admission Dx: No JEFFERY LÓPEZ MD 07/27/21 1634: CARDIO Progress Notes Assessment Assessment Patient seen and examined. Agree with EBD TEACHER's assessment and plan. Acute on chronic systolic heart failure better compensated with diuresis. PAF maintaining sinus rhythm. Continue Eliquis for stroke prophylaxis. Plan to repeat 2D echo as an outpatient to evaluate the need for AICD implantation. MICHELLE HORNER APRN Jul 27, 2021 12:06 JEFFERY LÓPEZ MD Jul 27, 2021 16:34
--- NOTE | 2021-07-27 12:11 | NUR ---
SS following for discharge planning. SS reviewed pt chart and discussed with pt RN. Pt is from home and is currently on room air. Methamphetamine positive. No PT/OT needs. PAT team referral made for assessment and recommendations. Dionicio from PAT team meeting with pt today and providing resources. SS will continue to follow for discharge planning.
[2021-07-28 02:40] VITALS: BP 177/95
[2021-07-28 06:53] LABS: CALCIUM 8.7 mg/dL (8.5-10.1); CREATININE 1.3 mg/dL (0.7-1.3); GFR 60.8; POTASSIUM 3.7 mmol/L (3.5-5.1)
[2021-07-28 07:55] VITALS: BP 197/117
--- NOTE | 2021-07-28 08:40 | PDOC ---
MICHELLE HORNER HAND MARKER 07/28/21 0840: CARDIO Progress Notes Date and Time Date of Service 07/28/21 Time of Evaluation 1115 Subjective Subjective: No Chest Pain, No Palpitations, Other (SOA better) Vitals Vitals Vital Signs Date Time Temp Pulse Resp B/P (MAP) Pulse Ox O2 Delivery O2 Flow Rate FiO2 07/28/21 07:55 98.0 94 18 197/117 (143) 99 Room Air 98.0 Weight Weight [ ] Input and Output Intake and Output Intake and Output 07/28/21 07:00 Intake Total 540 ml Balance 540 ml Intake Oral 540 ml # Voids 3 Laboratory Labs Laboratory Tests Test 07/28/21 04:25 Sodium Level 145 mmol/L (136-145) Potassium Level 3.7 mmol/L (3.5-5.1) Chloride Level 102 mmol/L (98-107) Carbon Dioxide Level 31 mmol/L (21-32) Anion Gap 12 (6-14) Blood Urea Nitrogen 25 mg/dL (8-26) Creatinine 1.3 mg/dL (0.7-1.3) Estimated GFR (Cockcroft-Gault) 60.8 Glucose Level 103 mg/dL (70-99) Calcium Level 8.7 mg/dL (8.5-10.1) Magnesium Level 2.0 mg/dL (1.8-2.4) Physical Exam HEENT: Neck Supple W Full Motion LUNGS: Clear to Auscultation, Other (diminished bases) Heart: RRR Abdomen: Soft N/T Extremities: No Edema Neurology: alert, oriented, follow commands Assessment Assessment 1. Dyspnea secondary to acute on chronic systolic heart failure. improved s/p diuresis 2. Severe NICM; LVEF 15-20%. Recent cath without CAD 3. Substance abuse; UDS + methamphetamines 4. Accelerated hypertension; remains labile 5. PAF; presently SR 6. TOO on CKD; improved Recommendations Continue HF optimization therapy including Entresto, Toprol, Lasix, and spironolactone Eliquis for stroke prophylaxis Increase hydralazine Reinforced importance lifestyle modification, cessation of recreation drug use Outpatient echo to reassess LVEF, need for AICD in primary prevention of SCD Follow up in our office with Dr. Muhammad as scheduled. Justicifation of Admission Dx: Justifications for Admission: Justification of Admission Dx: No JEFFERY MUHAMMAD MD 07/28/21 1821: CARDIO Progress Notes Assessment Assessment Patient seen and examined. Agree with SUPERVISOR PULLET FARM's assessment and plan. Acute on chronic systolic heart failure better compensated with diuresis. PAF maintaining sinus rhythm. Continue Eliquis for stroke prophylaxis. Plan to repeat 2D echo as an outpatient to evaluate the need for AICD implantation. MICHELLE HORNER APRN Jul 28, 2021 08:40 JEFFERY MUHAMMAD MD Jul 28, 2021 18:21
[2021-07-28] MEDS: GABAPENTIN 300 MG CAPSULE. PO SCH ×2 (09:00→14:30)
[2021-07-28] MEDS: PANTOPRAZOLE 40 MG TABLET.DR. PO SCH (09:00)
[2021-07-28] MEDS: SENNOSIDES/DOCUSATE 8.6/50MG TABLET. PO SCH (09:00)
[2021-07-28] MEDS: APIXABAN 5 MG TABLET. PO SCH (09:00)
[2021-07-28] MEDS: METOPROLOL SUCC 24HR ER 50 MG TAB.ER.24H. PO SCH (09:00)
[2021-07-28] MEDS: SPIRONOLACTONE 25 MG TABLET PO SCH (09:00)
[2021-07-28] MEDS: SUCRALFATE 1 GM TABLET. PO SCH ×2 (09:01→16:57)
[2021-07-28] MEDS: FUROSEMIDE 40 MG/4 ML VIAL. IVP SCH (09:01)
[2021-07-28] MEDS: SACUBITRIL/VALSARTAN 49/51MG TABLET. PO SCH (09:12)
[2021-07-28 10:55] VITALS: BP 156/100
--- NOTE | 2021-07-28 12:13 | NUR ---
SS following up with discharge planning. SS reviewed pt chart and discussed with pt RN. Pt is currently on room air. No PT/OT needs. Cardiology following. Blood pressure high. Discharge plan is currently to home when medically ready for discharge. SS will continue to follow for discharge planning.
[2021-07-28] MEDS ORDERED: METO50TA4 PO (12:15)
[2021-07-28] MEDS ORDERED: AMLO-186 PO (12:15)
[2021-07-28] MEDS ORDERED: SACU1TAB4 PO (12:15)
[2021-07-28] MEDS ORDERED: HYDR-2869 PO (12:15)
[2021-07-28] MEDS ORDERED: FURO40TA4 PO (12:15)
[2021-07-28] MEDS ORDERED: SPIR25TA PO (12:15)
[2021-07-28 14:13] VITALS: BP 186/117
[2021-07-28 16:58] VITALS: BP 141/92
[2021-07-28] MEDS ORDERED: HYDR100T24 PO (18:41)
--- NOTE | 2021-07-28 19:10 | NUR ---
Discharge Note: FELICIA MARTINEZ [address] [place] [address] Discharge instructions and discharge home medications reviewed with Patient and a copy given. All questions have been answered and understanding verbalized. The following instructions and handouts were given: discharge instructions, med list, follow ups, med education, HTN/BP/DIET education. Hydralazine 100mg PO TID called into pharmacy. Discontinued lines and drains: Peripheral IV intact. Patient discharged to Home or Self Care with Family Member via [facility] at 1910.
--- NOTE | 2021-07-28 21:24 | PDOC3 ---
[facility]-Discharge Summary Date of Admission: Date of Admission: Jul 23, 2021 Date of Discharge: Date of Discharge: Jul 28, 2021 Admission Diagnosis: Problems: (1) Hypertensive emergency (2) Syncope Discharge Diagnosis: Discharge Diagnosis: Same Consults: Consults: Cardiology Procedures: Procedures: Cardiology plan of care on last day of admission Assessment Assessment 1. Dyspnea secondary to acute on chronic systolic heart failure. improved s/p diuresis 2. Severe NICM; LVEF 15-20%. Recent cath without CAD 3. Substance abuse; UDS + methamphetamines 4. Accelerated hypertension; remains labile 5. PAF; presently SR 6. TOO on CKD; improved Recommendations Continue HF optimization therapy including Entresto, Toprol, Lasix, and spironolactone Eliquis for stroke prophylaxis Increase hydralazine Reinforced importance lifestyle modification, cessation of recreation drug use Outpatient echo to reassess LVEF, need for AICD in primary prevention of SCD Follow up in our office with Dr. Muhammad as scheduled. Justicifation of Admission Dx: Justifications for Admission: Justification of Admission Dx: JEFFERY Springer MD 07/28/21 1821: CARDIO Progress Notes Assessment Assessment Patient seen and examined. Agree with PLASTER MODEL AND MOLD MAKER's assessment and plan. Acute on chronic systolic heart failure better compensated with diuresis. PAF maintaining sinus rhythm. Continue Eliquis for stroke prophylaxis. Plan to repeat 2D echo as an outpatient to evaluate the need for AICD implantation. Hospital Course: Hospital Course: hief Complaint Syncope and collapse secondary to HFrEF 15 to 20% versus atrial fibrillation versus cardiomyopathy related to methamphetamine abuse, gout, hypertensive emergency -Patient transferred here from outside facility after presenting there with multiple syncopal episodes -Patient with notable cardiac history. Was due for EGD and colonoscopy yesterday for abdominal pain but could not due to his blood pressure -Uncertain how compliant patient is with medications given his blood pressure on presentation yesterday. Says he has been holding his Eliquis for the upcoming procedure but did resume it yesterday after it was canceled. Denies any ongoing bloody bowel movements -Syncope and collapsem, we will consult cardiology. Recently had a cath earlier this month. -Still very difficult controlling blood pressure. Increase Entresto. Add hydralazine. -GI consult to see if EGD still needed inpatient. --> Will do outpatient -PT OT -PAT consult -DVT prophylaxis will be Eliquis -Cardiac diet History of Present Illness History of Present Illness Patient is a 41-year-old male presented to the emergency room at [facility] overnight due to syncopal episodes. Was subsequently transferred here for further evaluation. Patient has a history of A. fib on home Eliquis and CHF. Follows with Dr Muhammad. Patient reports that over the past month or so he has been having syncopal episodes. Reports these episodes occur when he gets up from sitting or laying too quickly when he stands feels very dizzy in his head and gets nauseous. Excessively gets that feeling sometimes he will pass out and does report having hit his head in the past. Uncertain how long he remains down. Patient reports he was actually supposed to get an EGD yesterday but was unable to due to hypertension. Said he has been having dark bloody bowel movements and is very bloated. Follows with Dr. Liriano. When I evaluated the patient he was resting in bed comfortably. Was complaining of some pain and a headache lower extremity pain. Said he was not having any bloody bowel movements at the moment. Still feels very dizzy when he gets up. 07/25 Late entry for July 25. Patient evaluated examined at bedside. Still does have pretty high blood pressures up in the 200s at times. Adding on Norvasc today will check with pharmacy if 97 103 Entresto dose available here. GI following. Cardiology following. 07/26 Patient evaluated examined at bedside. Very hypertensive again overnight. Increase Entresto dose. Hydralazine added on by cardiology. Patient still with a ways to go before discharge. Blood pressure has been under control before EGD which will be done outpatient at this point. Continue current plan 07/27 Patient evaluated and examined at bedside. Remains hypertensive. Will increase hydralazine to 3 times daily today. Patient said he had a large bowel movement this morning the first since he is been here. Continue to titrate blood pressure medications. Changed activity order to up ad nicole. patient can walk around unit if he wants to. Cardiology following. 07/28 Patient evaluated examined at bedside. Blood pressure actually pretty improved today. Evaluated by cardiology cleared for discharge from their perspective. Cleared from discharge from my perspective. No complaints from patient today. Discharge home. Greater than 30 minutes on this discharge. 23 minutes advance care planning. Disposition: Disposition/Orders: D/C to Home Activity: Activity: Resume previous activity Diet: Diet: Cardiac Medications: Home Meds Active Scripts Furosemide (FUROSEMIDE) 40 Mg Tablet, 1 TAB PO DAILY for htn, hf for 60 Days, #60 TAB 0 Refills Prov:ART GONSALEZ MD 07/28/21 Spironolactone (ALDACTONE) 25 Mg Tablet, 25 MG PO DAILY for htn, hf for 60 Days, #60 TAB Prov:ART GONSALEZ MD 07/28/21 Sacubitril/Valsartan (Entresto 97 mg-103 mg Tablet) 1 Each Tablet, 1 EACH PO BID for htn, hf for 60 Days, #120 TAB Prov:ART GONSALEZ MD 07/28/21 Amlodipine Besylate (AMLODIPINE BESYLATE) 5 Mg Tablet, 10 MG PO DAILY for htn for 60 Days, #120 TAB Prov:ART GONSALEZ MD 07/28/21 Metoprolol Succinate (Toprol XL) 50 Mg Tab.er.24h, 50 MG PO DAILY for htn, hf for 60 Days, #60 TAB.SR Prov:ART GONSALEZ MD 07/28/21 Apixaban (ELIQUIS) 5 Mg Tablet, 5 MG PO BID for AFIB for 30 Days, #60 TAB Prov:REAGAN JOYNER APRN 02/24/21 Pantoprazole Sodium (PANTOPRAZOLE SODIUM ) 40 Mg Tablet.dr, 40 MG PO DAILYAC for gerd for 30 Days, #30 TAB.SR Prov:KRISTINELE,MATTL K III DO 02/24/21 Colchicine (COLCRYS) 0.6 Mg Tablet, 0.6 MG PO DAILY PRN for knee pain, #10 TAB Prov:NAYAN HAIR MD 12/27/20 Reported Medications Hydralazine Hcl (HYDRALAZINE HCL) 100 Mg Tablet, 1 TAB PO TID for htn, #90 TAB 5 Refills 07/28/21 Acetaminophen (TYLENOL) 325 Mg Tablet, 2 TAB PO PRN Q4HRS for , #30 TAB 07/24/21 Sucralfate (CARAFATE) 1 Gm Tablet, 1 TAB PO BID for for 30 Days, #60 TAB 0 Refills 07/24/21 Discontinued Reported Medications Metoprolol Tartrate (METOPROLOL TARTRATE) 50 Mg Tablet, 1 TAB PO BID for , #60 TAB 5 Refills 07/24/21 Carvedilol (CARVEDILOL ) 6.25 Mg Tablet, 6.25 MG PO BIDWMEALS for CARDIAC, TAB 06/29/21 Atorvastatin Calcium (LIPITOR) 10 Mg Tablet, 1 TAB PO QHS for CHOLESTEROL, #90 TAB 1 Refill 07/30/18 Discontinued Scripts Sacubitril/Valsartan (Entresto 49 mg-51 mg Tablet) 1 Each Tablet, 1 TAB PO BID for CHF, #30 TAB Prov:NAYAN HAIR MD 12/27/20 Scheduled Acetaminophen (Tylenol), 2 TAB PO PRN Q4HRS, (Reported) Amlodipine Besylate (Amlodipine Besylate), 10 MG PO DAILY Apixaban (Eliquis), 5 MG PO BID Furosemide (Furosemide), 1 TAB PO DAILY Hydralazine Hcl (Hydralazine Hcl), 1 TAB PO TID, (Reported) Metoprolol Succinate (Toprol XL), 50 MG PO DAILY Pantoprazole Sodium (Pantoprazole Sodium ), 40 MG PO DAILYAC Sacubitril/Valsartan (Entresto 97 mg-103 mg Tablet), 1 EACH PO BID Spironolactone (Aldactone), 25 MG PO DAILY Sucralfate (Carafate), 1 TAB PO BID, (Reported) Scheduled PRN Colchicine (Colcrys), 0.6 MG PO DAILY PRN for knee pain Discontinued Medications Atorvastatin Calcium (Lipitor), 1 TAB PO QHS, (Reported) Carvedilol (Carvedilol ), 6.25 MG PO BIDWMEALS, (Reported) Metoprolol Tartrate (Metoprolol Tartrate), 1 TAB PO BID, (Reported) Sacubitril/Valsartan (Entresto 49 mg-51 mg Tablet), 1 TAB PO BID Justicifation of Admission Dx: Justifications for Admission: Justification of Admission Dx: ART Trejo MD Jul 28, 2021 21:24
== END 2021-07-28 19:20 | disposition home or self-care (01) | DRG 291 ==
LOC: 6 SOUTH 23:26
PROVIDERS: ADMIT Internal Medicine; ATTEND Internal Medicine
DX: I13.0 Hypertensive heart and chronic kidney disease with heart failure and stage 1 through stage 4 chronic kidney disease, or unspecified chronic kidney disease (principal); I50.23 Acute on chronic systolic (congestive) heart failure; N17.0 Acute kidney failure with tubular necrosis; D68.59 Other primary thrombophilia; I16.1 Hypertensive emergency; R55 Syncope and collapse; I42.8 Other cardiomyopathies; D86.9 Sarcoidosis, unspecified; E11.22 Type 2 diabetes mellitus with diabetic chronic kidney disease; E78.00 Pure hypercholesterolemia, unspecified; E78.5 Hyperlipidemia, unspecified; F15.90 Other stimulant use, unspecified, uncomplicated; F17.200 Nicotine dependence, unspecified, uncomplicated; I27.20 Pulmonary hypertension, unspecified; I48.0 Paroxysmal atrial fibrillation; J44.9 Chronic obstructive pulmonary disease, unspecified; K21.9 Gastro-esophageal reflux disease without esophagitis; K59.00 Constipation, unspecified; K82.9 Disease of gallbladder, unspecified; M10.9 Gout, unspecified; N18.9 Chronic kidney disease, unspecified; Z53.9 Procedure and treatment not carried out, unspecified reason; Z79.01 Long term (current) use of anticoagulants; M19.90 Unspecified osteoarthritis, unspecified site
CPT/HCPCS: 36415; 71045; 80048; 80053; 80307; 83735; 85027; 85520; J0360; J1940; J2270; J3490; J7512; G0378

== ENCOUNTER → 2021-11-02 | Outpatient (CLI) | payer MEDICAID, OTHER ==
[~2021-11-02] MED LIST changes: +ACET325T9 PO; +AMLO-186 PO; +HYDR-2869 PO; +HYDR100T24 PO; +METO50TA4 PO; +SACU1TAB4 PO; +SPIR25TA PO; +SUCR1TAB35 PO
--- NOTE | 2021-11-02 17:09 | RAD ---
MR#: [id number] Date of Study: 11/02/2021 Ordering Physician: JEFFERY LÓPEZ, Referring Physician: JEFFERY LÓPEZ, Tech: Mario Munoz MBA, RDMS, RVT, RDCS, RTR APPROVED REPORT Patient Location: OUT-PATIENT Indications Uncontrolled HTN Renal Artery Doppler Right Renal Artery Left Renal Arter y Proximal 61.0/12.0 cm/secProximal 75.0/15.0 cm/sec Mid 56.0/15.0 cm/secMid 50.0/13.0 cm/sec Distal 114.0/15.0 cm/secDistal 66.0/14.0 cm/sec Renal/Aorta Ratio 0.92Renal/Aorta Ratio 0.61 Prox. Resistive Index 0.80Prox. Resistive Index 0.80 Mid Resistive Index 0.73Mid Resistive Index 0.75 Distal Resistive Index 0.87Distal Resistive Index 0.79 Rt. Segmental A. 25.0/11.0 cm/secLt. Segmental A. 21.0/8.0 cm/sec Renal Measurements RightLeft Kidney Pfpfys26.5 cm cmKidney Yoatwu45.1 cm cm Right Additional FindingsLeft Additional Findings Findings Grayscale images of the abdominal aorta demonstrate mild diffuse atherosclerosis. Spectral waveforms and velocities of the proximal, mid and distal bilateral renal arteries are grossl y within normal limits without any evidence of renal artery stenosis. Normal renal to aortic ratios. Normal resistive indices. Incidental note is made of a left inferior pole simple cyst measuring 2.7 cm. Critical Notification Critical Value: No <Conclusion> 1. No significant renal artery stenosis bilaterally 2. Incidental left renal cyst measuring 2.7 cm. Signed by : Hector Theodore, Electronically Approved : 11/02/2021 17:08:48
--- NOTE | 2021-11-03 09:33 | CARD ---
MR#: [id number] Date of Study: 11/02/2021 Ordering Physician: JEFFERY LÓPEZ, Referring Physician: Gato HYLTON: Pritesh Mcduffie [facility] APPROVED REPORT EXAM: Two-dimensional and M-mode echocardiogram with Doppler and color Doppler. Other Information Quality : FairHR: 91bpm Rhythm : NSRTechnically limited study due to body habitus. INDICATION Hypertension/HCVD Cardiomyopathy RISK FACTORS Hypertension Obesity Smoking LEFT VENTRICLE The left ventricle is normal size. There is moderate concentric left ventricular hypertrophy. The lef t ventricular systolic function is normal and the ejection fraction is within normal range. EF 55% Th ere is a flattened septum consistent with right ventricle pressure overload. Otherwise, grossly barry l wall motion. Transmitral Doppler flow pattern is Grade I-abnormal relaxation pattern. No left ventr icle thrombus noted on this study. There is no ventricular septal defect visualized. There is no left ventricular aneurysm. There is no mass noted in the left ventricle. RIGHT VENTRICLE The right ventricle is severely dilated. There is normal right ventricular wall thickness. RV Systoli c function is mildly reduced. ATRIA The left atrium size is normal. The right atrium is severely dilated. The interatrial septum is intac t with no evidence for an atrial septal defect or patent foramen ovale as noted on 2-D or Doppler judith ging. AORTIC VALVE The aortic valve is mildly sclerotic. Doppler and Color Flow revealed no significant aortic regurgita tion. There is no significant aortic valvular stenosis. There is no aortic valvular vegetation. MITRAL VALVE The mitral valve is thickened but opens well. There is no evidence of mitral valve prolapse. There is no mitral valve stenosis. Doppler and Color Flow revealed no mitral valve regurgitation noted. TRICUSPID VALVE The tricuspid valve is normal in structure and function. Doppler and Color Flow revealed trace tricus pid regurgitation. The PA pressure was estimated at 66 mmHg. There is no tricuspid valve prolapse or vegetation. There is no tricuspid valve stenosis. PULMONIC VALVE Doppler and Color Flow revealed no pulmonic valvular regurgitation. There is no pulmonic valvular maya nosis. GREAT VESSELS The aortic root is normal in size. The ascending aorta is normal in size. The IVC is mildly dilated w ith partial inspiratory collapse with valsalva suggestive of elevated right sided filling pressures. PERICARDIAL EFFUSION There is no pleural effusion. There is no evidence of significant pericardial effusion. Critical Notification Critical Value: No <Conclusion> The left ventricular systolic function is normal and the ejection fraction is within normal range. EF 55% There is a flattened septum consistent with right ventricle pressure overload. Otherwise, grossly nor mal wall motion. The right ventricle is severely dilated. RV Systolic function is mildly reduced. Doppler and Color Flow revealed trace tricuspid regurgitation. The PA pressure was estimated at 66 mm Hg. The IVC is mildly dilated with partial inspiratory collapse with valsalva suggestive of elevated righ t sided filling pressures. Signed by : Hector Theodore, Electronically Approved : 11/03/2021 09:32:56
== END ==
LOC: US 09:52
PROVIDERS: ATTEND Internal Medicine Cardiovascular Disease
DX: I08.0 Rheumatic disorders of both mitral and aortic valves (principal); I70.0 Atherosclerosis of aorta; I10 Essential (primary) hypertension; I42.9 Cardiomyopathy, unspecified
CPT/HCPCS: 82088; 84244; 93306; 93975; C8929